=== PATIENT | female | born 1980 | race African-American/Black ===

== ENCOUNTER 2021-12-18 11:22 | Emergency (ER) | payer OTHER, SELFPAY ==
[2021-12-18 11:30] VITALS: BP 135/84; PULSE 68; RESP 16; TEMP 36.6; O2SAT 100
--- NOTE | 2021-12-18 11:34 | ED.FEMALEGU ---
HPI - Female Genitourinary General Chief complaint: Urogenital-Female Stated complaint: injury Time Seen by Provider: 12/18/21 12:04 Source: patient and RN notes reviewed Mode of arrival: ambulatory Limitations: no limitations History of Present Illness HPI Narrative: 41-year-old female presents concern for urinary frequency, bladder pressure and pulling. Reports symptoms for 2 days. Reports mild nausea. Denies abdominal pain or vomiting. Reports headache. Denies back pain, fever, bodies, chills, sweats. Denies any [id number] intervention MD elicited complaint: UTI Related Data Allergies Allergy/AdvReac Type Severity Reaction Status Date / Time No Known Allergies Allergy Verified 12/18/21 11:46 Review of Systems Review of Systems: CONSTITUTIONAL: Denies malaise, chills, sweats, or fever. CARDIOVASCULAR: Denies chest pain, palpitations, or edema. RESPIRATORY: Denies cough or dyspnea. GASTROINTESTINAL: Denies abdominal pain, nausea, vomiting, diarrhea GENITOURINARY: Denies dysuria,urgency. Reports urine frequency, pulling, suprapubic pressure. Denies flank pain or hematuria. SKIN: Denies rash or itching. MUSCULOSKELETAL: Denies back pain or myalgia. All systems reviewed & are unremarkable except as noted in HPI and below PMFSH Comments At time of signature, agree with nursing past medical, surgical, social and family history. There is no relevant family history pertinent to the presenting complaint Exam Narrative: GENERAL: Well-appearing, well-nourished, and in no acute distress. HEAD: Normocephalic. EYES: PERRLA, conjunctivae clear. NECK: Supple. No lymphadenopathy CHEST: Clear to auscultation. No respiratory distress. HEART: Regular rate and rhythm. ABDOMEN: Soft, nontender upon palpation, nondistended, normal active bowel sounds, no palpable or pulsatile masses, no guarding. No CVA tenderness SKIN: Warm, dry, no rash. NEURO: Alert and oriented x3. PSYCH: Normal mood and affect Course Course Emergency Course: Patient is aware of diagnosis, understands and agrees to treatment plan. Anticipatory guidance given. Patient agrees to follow-up as directed and is aware of reasons to seek care at the emergency department. Portions of this record may have been created with voice recognition software Level of Care: Express Care Visit Vital Signs Vital signs: Reviewed. MDM - Female Genitourinary MDM Narrative Medical decision making narrative: Exam findings and UA show no acute concerns or changes; patient is non-toxic appearing and is in no distress. Patient is appropriate for outpatient treatment and follow-up. Differential Diagnosis Differential diagnosis: Likely urinary tract infection and cystitis Critical Care Time Critical Care Time Critical Care Time: No Discharge Plan Discharge Clinical Impression: Urinary tract infection Qualifiers: Urinary tract infection type: site unspecified Hematuria presence: with hematuria Qualified Code(s): N39.0 - Urinary tract infection, site not specified Patient Disposition: Home, Self-Care Condition: Stable Instructions: Antibiotic Form, Urinary Tract Infection in Women (ED) Additional Instructions: We will send a urine culture to the lab; if the culture identifies an organism that the prescribed antibiotic will not treat, you will receive a phone call from an urgent care staff member and an appropriate antibiotic will be prescribed. -Your symptoms should begin to improve within a day of starting antibiotics. But you should finish all the antibiotic pills you get. Otherwise your infection might come back. -Also recommend: increase water intake. Tylenol/ibuprofen as needed for pain or fever -Follow-up with your primary care provider for urine recheck or seek ER visit if condition worsens with high fever, nausea, vomiting and severe back pain. Prescriptions: New sulfamethoxazole-trimethoprim 800-160 mg tablet 1 tablet PO Q12H 7 Days Qty: 14
== END 2021-12-18 12:14 | disposition home or self-care (01) ==
PROVIDERS: Emergency Provider Nurse Practitioner
DX: N39.0 Urinary tract infection, site not specified (principal)
CPT/HCPCS: 81003; 87077; 87086; 87186; 99213; G0463

== ENCOUNTER 2022-02-08 09:42 | Emergency (ER) | payer OTHER, SELFPAY ==
--- NOTE | ~2022-02-08 | XR_ITS ---
XR knee RT min 4V DATE: 02/08/2022 10:20 INDICATION: Right knee pain. No injury. TECHNIQUE: 4 views including crosstable lateral COMPARISON: None FINDINGS: There is mild particular spurring narrowing at all 3 compartments and minimal loss of heigh t at the medial compartment joint space. No fracture or dislocation or joint effusion, radiopaque intra-articular loose body or chondrocalcino sis. No periosteal reaction or bone destruction. IMPRESSION: Mild tricompartment osteoarthritis Reviewed, dictated and finalized at location A.
[2022-02-08 09:50] VITALS: BP 137/61; PULSE 61; RESP 16; TEMP 36.7; O2SAT 100
--- NOTE | 2022-02-08 10:28 | ED.EXTPRO ---
HPI - Extremity Problem General Chief complaint: Extremity Problem,Nontraumatic Stated complaint: right knee Time Seen by Provider: 02/08/22 10:08 Source: patient Mode of arrival: ambulatory Limitations: no limitations History of Present Illness HPI Narrative: This is a 41-year-old female that presents to the emergency department for right knee pain. Ongoing over the last couple of days. No recent injury or trauma. Pain is worse with weightbearing and relieved with rest. She has been taking Tylenol with little relief. Denies fever, erythema, edema, decreased range of motion or numbness. Related Data Allergies Allergy/AdvReac Type Severity Reaction Status Date / Time No Known Allergies Allergy Verified 12/18/21 11:46 Review of Systems Review of Systems: CONSTITUTIONAL: Denies fever MUSCULOSKELETAL: Reports joint pain, and myalgia. NEUROLOGIC: Denies numbness All systems reviewed & are unremarkable except as noted in HPI and below PMFSH Past Medical History Medical History (Updated 02/08/22 @ 11:56 by Glenys Rashid PA-C) No active medical problems Social History Social History (Updated 02/08/22 @ 10:30 by Glenys Rashid PA-C) Smoking status: Current every day smoker Exam Narrative: GENERAL: Well-appearing, well-nourished, and in no acute distress. HEAD: Normocephalic, atraumatic. EYES: EOMI. EXTREMITIES: Normal range of motion. No edema, erythema or warmth. Normal DP pulse. Normal sensation SKIN: Warm, dry, no rash. NEURO: No focal deficits. Alert and oriented x3. PSYCH: Normal mood and affect Course Vital Signs Vital signs: Vital Signs Temperature 98.0 F 02/08/22 09:50 Pulse Rate 61 02/08/22 09:50 Respiratory Rate 16 02/08/22 09:50 Blood Pressure 137/61 02/08/22 09:50 Pulse Oximetry 100 02/08/22 09:50 Oxygen Delivery Room Air 02/08/22 09:50 Temperature 98.0 F 02/08/22 09:50 Pulse Rate 61 02/08/22 09:50 Respiratory Rate 16 02/08/22 09:50 Blood Pressure 137/61 02/08/22 09:50 Pulse Oximetry 100 02/08/22 09:50 Oxygen Delivery Room Air 02/08/22 09:50 MDM - Extremity (Nontraumatic) MDM Narrative Medical decision making narrative: Patient presents to the emergency department for right knee pain ongoing over the last couple of days. No recent injury or trauma. She is neurovascularly intact. Right knee x-ray shows mild tricompartmental osteoarthritis. Patient placed in an Yannick wrap and given crutches for comfort. Instructed to rest, ice and take [id number] pain medication as needed. She is to follow-up with primary care doctor. She was given warnings to return to the ER Imaging Data Radiologist's impression: ITS Impressions Knee X-Ray 02/08/22 10:31 IMPRESSION: Mild tricompartment osteoarthritis Critical Care Time Critical Care Time Critical Care Time: No Discharge Plan Discharge Clinical Impression: Acute pain of right knee Patient Disposition: Home, Self-Care Condition: Stable Instructions: Knee Pain (ED) Additional Instructions: Return to the emergency department if you experience fever, redness and swelling of your leg, numbness, or any other symptoms that are concerning to you Wear YANNICK wrap and use crutches. Ice and elevate extremity. Pain medication as needed and directed. Follow up with your doctor for further care. Dr. Middleton is our primary doctor on-call if needed Prescriptions: No Action sulfamethoxazole-trimethoprim 800-160 mg tablet 1 tablet PO Q12H 7 Days Qty: 14 0RF Follow-up/Referrals: James Middleton MD [Physician] - UNKNOWN,DOCTOR [Primary Care Provider] - 3 Days
[2022-02-08] MEDS: KETOROLAC 30 MG/ML VIAL (*BKC) IM (10:32)
[2022-02-08 12:15] VITALS: BP 128/74; PULSE 65; RESP 16; O2SAT 98
== END 2022-02-08 12:16 | disposition home or self-care (01) ==
PROVIDERS: Emergency Provider Emergency Medicine
DX: M25.561 Pain in right knee (principal); M17.11 Unilateral primary osteoarthritis, right knee; F17.200 Nicotine dependence, unspecified, uncomplicated
CPT/HCPCS: 73564; 96372; 99283; J1885

== ENCOUNTER 2022-03-29 11:01 | Emergency (ER) | payer OTHER, SELFPAY ==
[2022-03-29 11:13] VITALS: BP 127/62; PULSE 67; RESP 18; TEMP 36.9; O2SAT 100
--- NOTE | 2022-03-29 11:31 | ED.URI ---
HPI - URI/Sore Throat General Chief Complaint: Upper Respiratory Infection Stated Complaint: Bodyaches,Pain All Over,Fever Time Seen by Provider: 03/29/22 11:15 Source: patient Mode of arrival: ambulatory Limitations: no limitations History of Present Illness HPI Narrative: Amy is a 41-year-old female patient presenting to the clinic today with complaints of body aches, chills, fever. She reports that her symptoms started on . She tested at home for COVID and was positive MD elicited complaint: sore throat and nasal congestion Related Data Allergies Allergy/AdvReac Type Severity Reaction Status Date / Time No Known Allergies Allergy Verified 03/29/22 11:11 Review of Systems Review of Systems: Pertinent positives per HPI. Patient denies any rash, headache, visual changes, dizziness, shortness of breath, chest pain, palpitations, nausea, vomiting, diarrhea, constipation, abdominal pain, or any urinary issues. [facility] Past Medical History Medical History No active medical problems Social History Social History Smoking status: Current every day smoker Comments At the time of my signature, I reviewed and agree with the nursing past medical, surgical, social, and family history. There is no relevant family history pertinent to the patient complaint. Exam Narrative: General: Well-developed, obese, in no apparent distress Head: Normocephalic, atraumatic Eyes: Pupils equally round and reactive to light bilaterally, EOM intact, sclera and conjunctive clear, no discharge, lids normal Ears: TMs intact and clear, ear canals clear, no drainage, grossly hearing normal. Nose: Nares patent, clear and discharge, no inflammation, no sinus tenderness. Mouth: Oral pharynx without lesions or masses, good dentition, MMM. postnasal drip Neck: Supple, trachea midline, no enlargement of anterior or posterior cervical nodes, no thyroid masses or goiter palpable. Cardio: Regular rate and rhythm, s1 and s2 normal, no murmur appreciated. Resp: Clear to auscultation bilaterally, no rhonchi, rales, wheezing or rubs Course Course Emergency Course: Portions of this record may have been created with voice recognition software. Level of Care: Express Care Visit Vital Signs Vital signs: Vital Signs Temperature 36.9 C 03/29/22 11:13 Pulse Rate 67 03/29/22 11:13 Respiratory Rate 18 03/29/22 11:13 Blood Pressure 127/62 03/29/22 11:13 Pulse Oximetry 100 03/29/22 11:13 Oxygen Delivery Room Air 03/29/22 11:13 Temperature 36.9 C 03/29/22 11:13 Pulse Rate 67 03/29/22 11:13 Respiratory Rate 18 03/29/22 11:13 Blood Pressure 127/62 03/29/22 11:13 Pulse Oximetry 100 03/29/22 11:13 Oxygen Delivery Room Air 03/29/22 11:13 Vital signs reviewed MDM - URI/Sore Throat MDM Narrative Medical decision making narrative: at the time of visit patient is resting comfortably on the exam table. COVID testing was positive in the clinic today. I will send the patient a prescription for some antivirals. Supportive measures were discussed with the patient she voiced understanding of discharge instructions and agrees to treatment plan. Differential Diagnosis Differential diagnosis: Likely sinusitis, viral infection, influenza, pharyngitis and other (covid) Discharge Plan Discharge Clinical Impression: COVID-19 Patient Disposition: Home, Self-Care Condition: Stable Instructions: Antibiotic Form, COVID-19 (Coronavirus Disease 2019) (ED), How to Recover from COVID-19 at Home (ED) Additional Instructions: Take prescription medications only as prescribed- Lagevrio Increase fluids and stay well hydrated Tylenol/motrin for pain/fever Flonase and OTC antihistamines as directed Vicks vapor rub to open sinuses Sinus rinses for congestion Cepacol spray, cough drop
== END 2022-03-29 11:38 | disposition home or self-care (01) ==
PROVIDERS: Emergency Provider Nurse Practitioner Family
DX: U07.1 COVID-19 (principal); F17.200 Nicotine dependence, unspecified, uncomplicated
CPT/HCPCS: 99213; G0463

== ENCOUNTER 2022-04-27 17:31 | Emergency (ER) | payer OTHER, SELFPAY | END 2022-04-27 18:20 | disposition left against medical advice (07) | LOC: ANHED 18:04 | DX: Z53.21 Procedure and treatment not carried out due to patient leaving prior to being seen by health care provider (principal) | CPT/HCPCS: 99199 ==

== ENCOUNTER 2022-08-26 17:39 | Emergency (ER) | payer OTHER, SELFPAY ==
[2022-08-26 17:50] VITALS: BP 136/65; PULSE 72; RESP 16; TEMP 37.8; O2SAT 99
--- NOTE | 2022-08-26 18:20 | ED.URI ---
HPI - URI/Sore Throat General Chief Complaint: Upper Respiratory Infection Stated Complaint: Sinus Time Seen by Provider: 08/26/22 18:20 Source: patient Mode of arrival: ambulatory Limitations: no limitations History of Present Illness HPI Narrative: 42-year-old female presents with complaint of runny nose, mild nasal congestion, postnasal drainage and sore throat for 3 days. Afebrile. Patient concerned that she has strep throat. States so much drainage . Is not taking any rtlu-crg-[id number] medications to treat her symptoms. All systems reviewed and negative except as noted above. Related Data Allergies Allergy/AdvReac Type Severity Reaction Status Date / Time No Known Allergies Allergy Verified 08/26/22 17:49 Review of Systems Review of Systems: CONSTITUTIONAL: Denies fever, chills, or sweats. EYES: Denies visual changes, redness, or discharge. ENT: Reports rhinorrhea, congestion, sore throat, postnasal drainage. Denies otalgia. CARDIOVASCULAR: Denies chest pain, palpitations, or edema. RESPIRATORY: Denies cough or dyspnea. GASTROINTESTINAL: Denies abdominal pain, nausea, vomiting, or diarrhea. GENITOURINARY: Denies dysuria or hematuria. SKIN: Denies rash or itching. MUSCULOSKELETAL: Denies back pain, joint pain, or myalgia. NEUROLOGIC: Denies headache, numbness, or weakness. PSYCHIATRIC: Denies anxiety or depression. All other systems reviewed are negative, except as documented in HPI. [facility] Past Medical History Medical History No active medical problems Social History Social History Smoking status: Current every day smoker Comments At time of signature, agree with nursing past medical, surgical, social and family history. There is no relevant family history pertinent to the presenting complaint. Exam Narrative: GENERAL: This is a well-nourished, well-developed patient, in no apparent distress. HEAD: normocephalic, atraumatic. EYES: PERRL. Sclera clear/white. Vision is grossly intact. EARS: External ears normal, auditory canals clear and without drainage, mild fluid bilateral TMs without erythema. NOSE: External nose normal with Clear nasal drainage. THROAT: Mucous membranes moist, Clear postnasal drainage. No erythema, swelling or exudates. NECK: Neck supple, non-tender without lymphadenopathy, masses or thyromegaly. CARDIOVASCULAR: Regular rate and rhythm without murmurs, gallops, or rubs. RESPIRATORY: Clear to auscultation. Breath sounds equal bilaterally. No wheezes, rales, or rhonchi. SKIN: warm, Dry, intact with no suspicious lesions or rash, good texture and turgor. NEURO: awake, alert, and oriented to person, place and time. There were no obvious focal neurologic abnormalities. EXTREMITIES: No joint tenderness, effusion, or edema noted. Course Course Level of Care: Express Care Visit Vital Signs Vital signs: Vital Signs Temperature 37.8 C H 08/26/22 17:50 Pulse Rate 72 08/26/22 17:50 Respiratory Rate 16 08/26/22 17:50 Blood Pressure 136/65 08/26/22 17:50 Pulse Oximetry 99 08/26/22 17:50 Oxygen Delivery Room Air 08/26/22 17:50 Temperature 37.8 C H 08/26/22 17:50 Pulse Rate 72 08/26/22 17:50 Respiratory Rate 16 08/26/22 17:50 Blood Pressure 136/65 08/26/22 17:50 Pulse Oximetry 99 08/26/22 17:50 Oxygen Delivery Room Air 08/26/22 17:50 Reviewed MDM - URI/Sore Throat MDM Narrative Medical decision making narrative: Patient is aware of diagnosis, understands and agrees to treatment plan. Anticipatory guidance given. Patient agrees to follow-up as directed and is aware of reasons to seek care at the emergency department. Portions of this record may have been created with voice recognition software Differential Diagnosis Differential diagnosis: Likely sinusitis Lab Data Labs: Strep Screen
== END 2022-08-26 18:31 | disposition home or self-care (01) ==
PROVIDERS: Emergency Provider Nurse Practitioner Family
DX: J01.90 Acute sinusitis, unspecified (principal); R09.82 Postnasal drip
CPT/HCPCS: 87081; 87880; 99213; G0463

== ENCOUNTER 2022-11-17 17:39 | Emergency (ER) | payer OTHER, SELFPAY ==
[2022-11-17 17:48] VITALS: BP 142/71; PULSE 77; RESP 18; TEMP 36.5; O2SAT 100
[2022-11-17 18:44] LABS: Appearance Urine Cloudy (Clear); Bacteria Urine Rare /hpf; Bilirubin Urine Negative (Negative); Blood Urine Negative (Negative); Color Urine Yellow (Yellow); Glucose Urine UA Negative (Negative); Ketones Urine Trace mg/dL (Negative); Leukocyte Esterase Ur 1+ LEU/UL (Negative); Need Manual Microscopic Reviewed; Nitrate Urine Negative (Negative); Non Pathogenic Casts 0-2; Protein Urine Negative (Negative); Specific Grav Ur 1.032 (1.001-1.035); Squamous Epithelial Cell Urine Occasional /hpf (Few); WBC Urine 21-50 /hpf
[2022-11-17 19:03] LABS: Add Urine Microscopic? YES
--- NOTE | 2022-11-17 19:25 | ED.GENADULT ---
HPI - General Adult General Chief complaint: Wound/Laceration Stated complaint: cyst on private area Time Seen by Provider: 11/17/22 19:23 Source: patient Mode of arrival: ambulatory Limitations: no limitations History of Present Illness HPI narrative: Patient is a 42-year-old female presenting to the emergency department for evaluation of potential cyst or growth on her vagina. Patient reports that she noticed this 2 days ago on the shower. She denies any pain, swelling, redness or discharge. No vaginal bleeding. No vaginal pain. No pain with bowel movement. No dysuria or hematuria. Patient denies fever, chills, flank pain. No abdominal pain or suprapubic pain. Patient denies history of Bartholin gland cyst infections in the past. No history of abscess or skin infections. Patient denies lesions, blisters, vesicles. No lymphadenopathy. Related Data Allergies Allergy/AdvReac Type Severity Reaction Status Date / Time No Known Allergies Allergy Verified 08/26/22 17:49 Review of Systems Review of Systems: CONSTITUTIONAL: Denies fever CARDIOVASCULAR: Denies chest pain RESPIRATORY: Denies cough or dyspnea. GASTROINTESTINAL: Denies abdominal pain SKIN: Denies rash : Denies dysuria, hematuria, vaginal discharge or bleeding MUSCULOSKELETAL: Denies back pain NEUROLOGIC: Denies headache PMFSH Past Medical History Medical History No active medical problems Social History Social History Smoking status: Current every day smoker Exam Narrative: GENERAL: Awake, alert, conversant HEAD: Normocephalic, atraumatic. EYES: PERRLA and EOMI. ENT: Nares clear, no rhinorrhea or epistaxis. Mucous membranes moist. NECK: Supple. CHEST: No respiratory distress, breathing even and non labored HEART: Regular rate, sinus rhythm ABDOMEN:Non distended, non tender : External vagina is normal. No vesicles or lesions. Labia majora is normal. Labia minora normal. There is a small cystic structure of the right lower vagina which is mobile, non tender, non erythematous, no induration. No fluctuance. It is not pedunculated, but appears cystic but not consistent with abscess. No lymphadenopathy on exam. No vesicles. EXTREMITIES: Normal range of motion. No edema. SKIN: Warm, dry, no rash. NEURO:No focal deficits. Alert and oriented x3 Course Vital Signs Vital signs: Vital Signs Temperature 36.5 C 11/17/22 17:48 Pulse Rate 77 11/17/22 17:48 Respiratory Rate 18 11/17/22 17:48 Blood Pressure 142/71 H 11/17/22 17:48 Pulse Oximetry 100 11/17/22 17:48 Oxygen Delivery Room Air 11/17/22 17:48 Temperature 36.5 C 11/17/22 17:48 Pulse Rate 77 11/17/22 17:48 Respiratory Rate 18 11/17/22 17:48 Blood Pressure 142/71 H 11/17/22 17:48 Pulse Oximetry 100 11/17/22 17:48 Oxygen Delivery Room Air 11/17/22 17:48 Medical Decision Making MDM Narrative Medical decision making narrative: Medical decision making narrative: -Presentation: Patient presenting for evaluation of cystic lesion on lower right vagina without tenderness, induration, fluctuance. No evidence of infection. Not consistent with Bartholin gland abscess. Differential includes cystic structure, pedunculated lesion. Patient without evidence of herpes infection or other secondary signs of sexual transmitted infection. -Co-morbidities complicating care: None -Social determinants of health: None -External Chart Review: External EMR record reviewed, I personally reviewed the patient's chart and recent notes -Hx from independent Sources: None -Discussion of Management/Consultants: None, pt will require non emergent OBGYN follow up -Independent interpretation of studies:None Dx tests considered but not ordered: None -Procedures: None, not consistent with abscess or infected bartholin gland cyst at this point
[2022-11-17 19:49] VITALS: BP 140/74; PULSE 74; RESP 18; O2SAT 100
== END 2022-11-17 19:49 | disposition home or self-care (01) ==
PROVIDERS: Emergency Medicine; Emergency Provider Emergency Medicine; PCP Emergency Medicine
DX: N90.7 Vulvar cyst (principal); F17.200 Nicotine dependence, unspecified, uncomplicated
CPT/HCPCS: 81001; 81025; 87086; 99283

== ENCOUNTER 2023-01-15 00:20 | Day surgery (SDC) | payer OTHER, SELFPAY ==
[2023-01-05 12:44] VITALS: BMI 45.3
--- NOTE | 2023-01-05 12:50 | PC.NURSE ---
Report to the Outpatient Waiting Room, entrance under the green pavilion located off [facility], at time _1300_ on date _01/15/23_. Planned Procedure Time: _1500_. Time changes happen often and if your time is changed the preop area will call you the afternoon before. - You and your visitor will be asked to self-screen and do not enter if you have any COVID symptoms. - A mask is optional within the hospital at this time. Patients may have clear liquids (water, carbonated beverages, clear teas, apple juice) until 3 hours prior to surgery with a maximum of 20 ounces. - No food from midnight until time of surgery - Infants may have breast milk until 4 hours before surgery, infant formula 6 hours prior to surgery. - Children will be allowed to drink immediately following surgery. If applicable, please bring a bottle or sippy cup to assist with drinking. Juice, water, soda, and popsicles are readily available. For infants on formula, please bring formula the day of surgery. Pacifiers are allowed. Take the following medications with a SIP of water the morning of surgery: NONE DO NOT STOP ANY OF YOUR OTHER PRESCRIPTION MEDICATIONS PRIOR TO SURGERY ?EXCEPT THE FOLLOWING Medications to discontinue per physician NONE Date to take last dose Please no make-up, nail czech, hairspray, perfume, deodorant, or body powder the day of surgery. No jewelry (including any body piercings) or valuables the day of surgery, leave them at home. Please take a shower or bath the night before, or the morning of, surgery with an antibacterial soap. Wear comfortable, loose fitting clothing. Children are encouraged to wear pajamas. - Jewelry must be removed prior to entering the operating room. Rings and piercings that are not removed may be cut off. - The hospital will not accept responsibility for valuables. - Please leave all valuables, including medications, at home the day of surgery. If you are going home after surgery, a licensed long haul truck driver must drive you home. - NO public transportation without another adult if you receive anesthesia. - We recommend that an adult stay with you for 24 hours following discharge. - We also recommend that you do not drive, make important decision, drink alcoholic beverages, or take any drugs that were not prescribed by your health care provider for at least 24 hours after your discharge time. For Pediatric surgeries, we recommend two adults accompany the child home. Follow any additional instructions given to you from your surgeon. If you or anyone in your household have experienced Covid symptoms in the past week, please notify your surgeon or the nurse liaison at the phone number below for possible testing. Telephone instructions given to PATIENT__and asked if any additional questions and then verbalized understanding. Patient advised to call surgeon office or pre surgery nurse liaison [phone] if any additional questions.
--- NOTE | 2023-01-13 12:02 | PM.IMHP ---
H&P: HPI History of Present Illness Date/Time: 01/13/23 12:02 Chief Complaint: Vaginal cyst Narrative: This is a 42-year-old female with a large vaginal cyst. It has caused her discomfort from intercourse standpoint and she would like to have it removed. It does not appear infected. Risks and benefits reviewed in [facility] Past Medical History Medical History No active medical problems Social History Social History Smoking packs per day: 0.5 Smoking cigarettes per day: 10.0 Years smoked: 24 Smoking pack-years: 12.00 Smoking status: Current every day smoker Tobacco type: cigarettes Alcohol intake: current Alcohol use details: 1 PER MONTH Substance use: never Living arrangements: with family Meds Home Medications and Allergies Home Medications Medication Instructions Recorded Confirmed Type No Home Medications 01/05/23 01/05/23 History Allergies Allergy/AdvReac Type Severity Reaction Status Date / Time No Known Allergies Allergy Verified 01/05/23 12:43 Exam Const: General: cooperative, healthy appearing and comfortable Nutritional Appearance: average body habitus Orientation/consciousness: oriented to person, oriented to place and oriented to time HENMT: Head: normal to inspection Resp: Effort & Inspection: normal respiratory effort Cardio: Rate: regular rate Rhythm: regular rhythm Heart sounds: S1 normal heart sound present and S2 normal heart sound present GI: Inspection: normal to inspection : External Female Exam: normal external appearance Speculum Exam - Vagina: normal appearance of the vagina (Moderate to large-sized the vaginal cyst noted) Speculum Exam - Cervix: normal appearance of the cervix Bimanual exam- vagina & uterus: non-tender Bimanual Exam- Adnexa, other: normal adnexae Assessment and Plan Assessment and plan (1) Vaginal cyst: Code(s): N89.8 - Other specified noninflammatory disorders of vagina Status: Acute Plan Excision of vaginal cyst
[2023-01-15] VITALS (9 sets, daily range): BP systolic 112–134; BP diastolic 59–98; PULSE 60–74; RESP 12–18; TEMP 36.3–36.7; O2SAT 99–100
--- NOTE | 2023-01-15 06:27 | WPDHPUPDATE1 ---
History and Physical Update Update Date/Time: 01/15/23 06:27 History and Physical has been reviewed, including an updated exam of the patient. There are NO changes in the patient's condition. Risks, benefits, and alternatives have been discussed and questions answered. Patient agrees to proceed with procedure.
[2023-01-15] MEDS: LACTATED RINGERS 1,000 ML 30 ML IV CONT (08:00)
[2023-01-15] MEDS: ACETAMINOPHEN 500 MG TABLET 1000 MG PO (08:00)
--- NOTE | 2023-01-15 08:23 | P.PNAN_ITS ---
Anes - Initial Pre Proc Eval Procedure: Operation Date: 01/15/23 09:30 Proposed Procedures p Excision of Vaginal Cyst - Rey Agarwal MD Date/Time: 01/15/23 08:23 Surgeon: Rey Agarwal MD Pre Op Diagnosis: Vag Cyst Patient Data Age: 42 Gender: F Height: 1.63 m Weight: 120 kg Allergies Allergy/AdvReac Type Severity Reaction Status Date / Time No Known Allergies Allergy Verified 01/05/23 12:43 Home Medications Medication Instructions Recorded Confirmed Type hydrocodone 5 mg-acetaminophen 325 1 tablet PO Q4H PRN pain #14 tabs 01/15/23 Rx mg tablet Patient hx anesthesia problems: none Family hx anesthesia problems: none Results Review: All pre-operative results and documents have been reviewed as part of the pre- operative evaluation. PENDING SALE TO [facility] Past Medical History Medical History No active medical problems Social History Social History Smoking packs per day: 0.5 Smoking cigarettes per day: 10.0 Years smoked: 24 Smoking pack-years: 12.00 Smoking status: Current every day smoker Tobacco type: cigarettes Alcohol intake: current Alcohol use details: 1 PER MONTH Substance use: never Living arrangements: with family Anes - Eval Final PreProcedure Day of Procedure 01/15/23 08:23 Patient weight: morbidly obese Heart: regular rate and rhythm Lungs: decreased breath sounds Airway: Mallampati scale class II Neurological: alert and oriented Last oral intake: >/= 8 hours ASA classification: III Emergent: no Anesthetic plan: proceed Anesthesia type and monitoring: general ETT and standard monitoring Results Review: All pre-operative results and documents have been reviewed as part of the pre- operative evaluation. Informed Consent: The patient's anesthetic plan and its attendant risks and benefits were di scussed with the patient/family/POA. Questions were solicited and answers provided to the satisfaction of the patient/family/POA.
--- NOTE | 2023-01-15 09:39 | W.PM.PROC2 ---
Procedure Note - Detailed Date of Procedure 01/15/23 Pre-op Diagnosis Vag Cyst Post-op Diagnosis Same Procedure Performed Excision of vaginal cyst Surgeon Rey Agarwal MD Anesthesia General Indications This 42-year-old female with inflamed vaginal cyst Findings Inflamed vaginal cyst Description of Procedure Patient is prepped draped in the normal sterile fashion placed in dorsal lithotomy position. Under excellent general anesthesia the labia were in the large vaginal cyst was seen. This was grasped with a clamp and a circumferential incision made the was removed in total. This was then closed with continuous running 2-0 Vicryl. Blood loss estimated 1cc. All sponge, needle, instrument counts were correct. There were no immediate complications Estimated Blood Loss 1 Drains No Packing No Pathology Yes Complications No immediate complications Condition Stable Disposition PACU
== END 2023-01-15 11:04 | disposition home or self-care (01) ==
PROVIDERS: PCP Emergency Medicine; Visit Provider Obstetrics & Gynecology
PROC: (CPT 11422; principal; 2023-01-15 09:30)
DX: N89.8 Other specified noninflammatory disorders of vagina (principal); F17.210 Nicotine dependence, cigarettes, uncomplicated; E66.01 Morbid (severe) obesity due to excess calories; Z68.42 Body mass index [BMI] 45.0-49.9, adult
CPT/HCPCS: 11422; 88305; A9270; J1100; J2250; J2405; J2704; J3010; J7120

== ENCOUNTER 2023-09-30 19:53 | Emergency (ER) | payer OTHER, SELFPAY ==
[2023-09-30 20:04] VITALS: BP 145/72; PULSE 67; RESP 16; TEMP 36.8; O2SAT 100
--- NOTE | 2023-09-30 20:09 | ED.URI ---
HPI - URI/Sore Throat General Chief Complaint: Upper Respiratory Infection Stated Complaint: Sore Throat Time Seen by Provider: 09/30/23 20:12 Source: patient, RN notes reviewed and old records reviewed Mode of arrival: ambulatory Limitations: no limitations History of Present Illness HPI Narrative: 43 year old female who presents to [facility] care with complaints of sore throat and right ear pain with feeling feverish and some cold sweats since yesterday evening. Patient reports that her son was diagnosed with strep throat 2 days ago. Patient states that she does have some sinus drainage, denies any headache or any body aches. She reports that she has not taken any OTC medication for her symptoms. MD elicited complaint: sore throat, rhinorrhea and other (right ear pain) Onset (ago): day(s) (since last evening) Consistency: constant Severity: moderate Treatments prior to arrival: none Related Data Allergies Allergy/AdvReac Type Severity Reaction Status Date / Time No Known Allergies Allergy Verified 09/30/23 19:56 Review of Systems Review of Systems: CONSTITUTIONAL: Reports malaise, chills, sweats, unknown if fever but has felt feverish . EYES: Denies visual changes, redness, or discharge. ENT: Reports rhinorrhea, congestion, no sinus pain, right otalgia and sore throat. CARDIOVASCULAR: Denies chest pain, palpitations, or edema. RESPIRATORY: Reports no cough.? Denies dyspnea. GASTROINTESTINAL: Denies abdominal pain, nausea, vomiting, diarrhea SKIN: Denies rash or itching. MUSCULOSKELETAL: Denies myalgia. NEUROLOGIC: Denies headache. All systems reviewed & are unremarkable except as noted in HPI and below PMFSH Past Medical History Medical History (Updated 10/01/23 @ 15:01 by Guera Washington NP) Arthritis of both knees Vaginal cyst surgical excision Social History Social History Smoking packs per day: 0.5 Smoking cigarettes per day: 10.0 Years smoked: 24 Smoking pack-years: 12.00 Smoking status: Current every day smoker Tobacco type: cigarettes Alcohol intake: current Alcohol use details: 1 PER MONTH Substance use: never Living arrangements: with family Comments At time of signature, agree with nursing past medical, surgical, social and family history. There is no relevant family history pertinent to the presenting complaint Exam Narrative: GENERAL: Well-appearing, well-nourished, and in no acute distress. HEAD: Normocephalic EYES: PERRLA, conjunctivae clear ENT: Nares clear, turbinates edematous and erythematous, clear discharge. Mucous membranes moist.Right ear canal red and excoriated. TM pearly singer with dull light reflex bilaterally; no tragal tenderness. Oropharynx erythematous without lesions. Tonsils enlarged and without exudate, no drooling, no hoarseness, no trismus, uvula midline. NECK: Supple. lymphadenopathy CHEST: Clear to auscultation, breath sounds equal. No wheezing, rhonchi, rales, or stridor. No respiratory distress, speaks in full sentences.no cough noted,SAO2 100% on room air HEART: Regular rate and rhythm. No murmur heard. SKIN: Warm, dry, no rash. NEURO: Alert and oriented x3. PSYCH: Normal mood and affect Course Course Emergency Course: Patient is aware of diagnosis, understands and agrees to treatment plan.? Anticipatory guidance given.? Patient agrees to follow-up as directed and is aware of reasons to seek care at the emergency department. Portions of this record may have been created with voice recognition software Level of Care: Express Care Visit Vital Signs Vital signs: Vital Signs Temperature 36.8 C 09/30/23 20:04 Pulse Rate 67 09/30/23 20:04 Respiratory Rate 16 09/30/23 20:04 Blood Pressure 145/72 H 09/30/23 20:04 Pulse Oximetry 100 09/30/23 20:04 Oxygen Delivery Room Air 09/30/23 20:04 Temperature 36.8 C 09/30/23 20:04
== END 2023-09-30 20:36 | disposition home or self-care (01) ==
PROVIDERS: Emergency Provider Registered Nurse; PCP Emergency Medicine
DX: J02.0 Streptococcal pharyngitis (principal); H60.91 Unspecified otitis externa, right ear; F17.210 Nicotine dependence, cigarettes, uncomplicated; M17.0 Bilateral primary osteoarthritis of knee
CPT/HCPCS: 87880; 99213; G0463

== ENCOUNTER 2024-02-10 18:26 | Emergency (ER) | payer OTHER, SELFPAY ==
--- NOTE | 2024-02-10 18:28 | ED.URI ---
HPI - URI/Sore Throat General Chief Complaint: Upper Respiratory Infection Stated Complaint: throat hurts,ears hurt,fever,drainage Time Seen by Provider: 02/10/24 18:28 Source: patient Mode of arrival: ambulatory Limitations: no limitations History of Present Illness HPI Narrative: Gabriela is a 43-year-old female patient presenting to clinic today with complaints of sore throat, headache, right ear pain,, cough, feeling feverish, and nasal congestion/drainage x2 days. She denies any chest pain or shortness of breath. No known sick contacts. MD elicited complaint: fever, cough, sore throat, rhinorrhea, nasal congestion and other (Headache) Related Data Allergies Allergy/AdvReac Type Severity Reaction Status Date / Time No Known Allergies Allergy Verified 02/10/24 18:37 Review of Systems Review of Systems: Pertinent positives per HPI. Patient denies any rash, headache, visual changes, dizziness, shortness of breath, chest pain, palpitations, nausea, vomiting, diarrhea, constipation, abdominal pain, or any urinary issues. [facility] Past Medical History Medical History Arthritis of both knees Vaginal cyst surgical excision Social History Social History Smoking packs per day: 0.5 Smoking cigarettes per day: 10.0 Years smoked: 24 Smoking pack-years: 12.00 Smoking status: Current every day smoker Tobacco type: cigarettes Alcohol intake: current Alcohol use details: 1 PER MONTH Substance use: never Living arrangements: with family Comments At the time of my signature, I reviewed and agree with the nursing past medical, surgical, social, and family history. There is no relevant family history pertinent to the patient complaint. Exam Narrative: General: Well-developed, morbidly obese, in no apparent distress Head: Normocephalic, atraumatic Eyes: Pupils equally round and reactive to light bilaterally, EOM intact, sclera and conjunctive clear, no discharge, lids normal Ears: TMs intact and congested, ear canals clear, no drainage, grossly hearing normal. Nose: Nares patent, clear discharge, no inflammation, no sinus tenderness. Mouth: Oral pharynx mildly red without lesions or masses, good dentition, MMM. Neck: Supple, trachea midline, no enlargement of anterior or posterior cervical nodes, no thyroid masses or goiter palpable. Cardio: Regular rate and rhythm, s1 and s2 normal, no murmur appreciated. Resp: Clear to auscultation bilaterally, no rhonchi, rales, wheezing or rubs Course Course Emergency Course: Portions of this record may have been created with voice recognition software. Level of Care: Express Care Visit Vital Signs Vital signs: Vital Signs Temperature 36.8 C 02/10/24 18:44 Pulse Rate 66 02/10/24 18:44 Respiratory Rate 15 02/10/24 18:44 Blood Pressure 130/72 02/10/24 18:44 Pulse Oximetry 100 02/10/24 18:44 Oxygen Delivery Room Air 02/10/24 18:44 Temperature 36.8 C 02/10/24 18:44 Pulse Rate 66 02/10/24 18:44 Respiratory Rate 15 02/10/24 18:44 Blood Pressure 130/72 02/10/24 18:44 Pulse Oximetry 100 02/10/24 18:44 Oxygen Delivery Room Air 02/10/24 18:44 Vital signs reviewed MDM - URI/Sore Throat MDM Narrative Medical decision making narrative: At the time of visit patient is resting comfortably on the exam table. Patient appears to be nontoxic. Labs: COVID and strep test were performed and were negative in the clinic today. We will send strep for culture Plan: I suspect patient has URI/pharyngitis/viral syndrome. Work note was given. We will send your strep for culture. Supportive measures were discussed with the patient and they voiced understanding discharge instructions and agrees to treatment plan. Return precautions reviewed Differential Diagnosis Differential diagnosis: Likely upper resp
[2024-02-10 18:44] VITALS: BP 130/72; PULSE 66; RESP 15; TEMP 36.8; O2SAT 100
[2024-02-10 19:01] LABS: EDSTREPNEGPOS1 Negative (Negative)
[2024-02-10 19:03] LABS: EDCOVIDSCREEN Negative (Negative)
== END 2024-02-10 19:12 | disposition home or self-care (01) ==
PROVIDERS: Emergency Provider Nurse Practitioner Family; PCP Emergency Medicine
DX: B34.9 Viral infection, unspecified (principal); J06.9 Acute upper respiratory infection, unspecified; J02.9 Acute pharyngitis, unspecified; Z20.822 Contact with and (suspected) exposure to COVID-19; F17.210 Nicotine dependence, cigarettes, uncomplicated; M17.0 Bilateral primary osteoarthritis of knee
CPT/HCPCS: 87081; 87635; 87880; 99213; G0463

== ENCOUNTER 2024-06-22 11:57 | Emergency (ER) | payer OTHER, SELFPAY ==
--- NOTE | ~2024-06-22 | CT_ITS ---
EXAMINATION: CT abdomen pelvis w con DATE: 06/22/2024 13:34 INDICATION: Abdominal pain. TECHNIQUE: Computed tomography (CT) of the abdomen and pelvis was performed with 100 mL Omnipaque 350 intravenous contrast. Automated exposure control and iterative reconstruction technique were employe d. The dose-length product was 1200.99 mGy-cm. COMPARISON: None. FINDINGS: The visualized portions of the lung bases are clear without pneumonia or pleural effusion. The heart size is normal. No pericardial effusion. The liver, gallbladder, spleen, pancreas, adrenal glands, and kidneys are normal. There are no dilated loops of bowel. The appendix is normal. There ar e no pathologically enlarged lymph nodes. There is no free intraperitoneal fluid. There is an umbilic al hernia containing fat. There is mild thoracic and lumbar spondylosis. IMPRESSION: 1. Umbilical hernia containing fat. Reviewed, dictated and finalized at location B. PRESSER
[2024-06-22 12:00] VITALS: BP 147/57; PULSE 73; RESP 18; TEMP 36.7; O2SAT 100
--- NOTE | 2024-06-22 12:14 | ED.GENADULT ---
HPI - General Adult General Chief complaint: Abdominal Pain <Peggy Mir APRN - Last Filed: 06/22/24 13:54> Stated complaint: constipation x 2 months <Peggy Mir APRN - Last Filed: 06/22/24 13:54> Time Seen by Provider: 06/22/24 12:10 <Peggy Mir APRN - Last Filed: 06/22/24 13:54> Focused HPI: Patient is a 43-year-old female who presents to the ER with abdominal pain and constipation. She reports she has not had her menstrual since April 19, but has taken a negative test at home. Patient reports she went to her primary care provider earlier today who advised her to come to the ER for evaluation. Patient reports she has been going approximately 1 week in between bowel movements. She denies any recent fevers, chest pain, shortness of breath, back pain. Patient denies any medical history related to this ER visit. GENERAL: Well-appearing, well-nourished, and in no acute distress. HEAD: Normocephalic, atraumatic. CHEST: Clear to auscultation. ?No respiratory distress. HEART: Regular rate and rhythm.? NEURO: ?Alert and oriented x3. ABDOMEN: + BS, bilateral upper quadrant tenderness with palpation Patient screened in triage and initial orders placed.? ?Additional care and disposition to be based upon?diagnostic testing and treatment. <Peggy Mir APRN - Last Filed: 06/22/24 13:54> History of Present Illness HPI narrative: AGREE WITH THE ABOVE <Carlos Alberto Pena MD - Last Filed: 06/22/24 14:19> Related Data Allergies/adverse reactions: Allergies Allergy/AdvReac Type Severity Reaction Status Date / Time No Known Allergies Allergy Verified 06/22/24 13:48 <Peggy Mir APRN - Last Filed: 06/22/24 13:54> Review of Systems Review of Systems: All systems reviewed & are unremarkable except as noted in HPI and below <Carlos Alberto Pena MD - Last Filed: 06/22/24 14:19> PMFSH Past Medical History Medical History: Medical History Arthritis of both knees Vaginal cyst surgical excision <Peggy Mir APRN - Last Filed: 06/22/24 13:54> Social History Social History: Social History Smoking packs per day: 0.5 Smoking cigarettes per day: 10.0 Years smoked: 24 Smoking pack-years: 12.00 Smoking status: Current every day smoker Tobacco type: cigarettes Alcohol intake: current Alcohol use details: 1 PER MONTH Substance use: never Living arrangements: with family <Peggy Mir APRN - Last Filed: 06/22/24 13:54> Exam Narrative: GENERAL APPEARANCE: WELL-DEVELOPED, WELL-NOURISHED SKIN: NORMAL COLOR HEAD: NORMOCEPHALIC, NONTRAUMATIC EYES: CLEAR CONJUNCTIVA ENT: OROPHARYNX NORMAL, EARS NORMAL, NOSE NORMAL NECK: SUPPLE, NONTENDER CHEST AND RESPIRATORY: AIRWAY PATENT, NO RESPIRATORY DISTRESS, NO ACCESSORY MUSCLE USE HEART: REGULAR RATE/RHYTHM ABDOMEN: SOFT, MILD DIFFUSE TENDERNESS LOWER ABDOMEN BILATERALLY, NO GUARDING OR REBOUND,, NO ORGANOMEGALY, QUIET BOWEL SOUNDS VASCULAR: NORMAL PERIPHERAL PULSES, NORMAL CAPILLARY REFILL. MUSCULOSKELETAL: NORMAL RANGE OF MOTION, NONTENDER BACK NEUROLOGIC: ALERT AND ORIENTED ?3, CLERICAL DENTIST ASSISTANT IS NORMAL TESTED, NO GROSS MOTOR DEFICIT <Carlos Alberto Pena MD - Last Filed: 06/22/24 14:19> Course Vital Signs Vital signs: Vital Signs Temperature 36.7 C 06/22/24 12:00 Pulse Rate 73 06/22/24 12:00 Respiratory Rate 18 06/22/24 12:00 Blood Pressure 147/57 H 06/22/24 12:00 Pulse Oximetry 100 06/22/24 12:00 Oxygen Delivery Room Air 06/22/24 12:00 Temperature 36.7 C 06/22/24 12:00 Pulse Rate 65 06/22/24 13:48 Respiratory Rate 16 06/22/24 13:48 Blood Pressure 119/68 06/22/24 13:48 Pulse Oximetry 99 06/22/24 13:48 Oxygen Delivery Room Air 06/22/24 12:00 <Peggy Mir APRN - Last Filed: 06/22/24 13:54> Vital Signs Temperature 36.7 C 06/22/24 12:00 Pulse Rate 73 06/22/24 12:00 Respiratory Rate 18 06/22/24 12:00 Blood Pressure 147/57 H 06/22/24 12:00 Pulse Oximetry 100 06/22/24 12:00 Oxygen Delivery Room Air 06/22/24 12:00 Temperature 36.7 C 06/22/24 12:00 Pulse Rate 65 06/22/24 13:48 Respiratory Rate 16 06/22/24 13:48 Blood Pressure 119/68 06/22/24 13:48 Pulse Oximetry 99 06/22/24 13:48 Oxygen Delivery Room Air 06/22/24 12:00 <Carlos Alberto Pena MD - Last Filed: 06/22/24 14:19> Medical Decision Making MDM Narrative Medical decision making narrative: PATIENT PRESENTS WITH ABDOMINAL PAIN AND BLOATING, INTERMITTENT FOR THE LAST 2 MONTHS VITAL SIGNS STABLE PHYSICAL EXAMINATION SHOWING MILD DIFFUSE TENDERNESS LOWER ABDOMEN BILATERALLY DIFFERENTIAL DIAGNOSIS INCLUDE URINARY TRACT INFECTION, COLITIS, DIVERTICULITIS, CONSTIPATION BLOOD WORKUP TODAY SHOWED WBC 10.4 OTHERWISE INSIGNIFICANT ABNORMALITY URINALYSIS SHOWS SHOWED EVIDENCE OF INFECTION CT ABDOMEN AND PELVIS WITH IV CONTRAST SHOWED UMBILICAL HERNIA CONTAINING FAT <Carlos Alberto Pean MD - Last Filed: 06/22/24 14:19> Differential Diagnosis Differential Diagnosis: ABOVE <Carlos Alberto Pena MD - Last Filed: 06/22/24 14:19> Vital Signs Vital Signs: Vital Signs Temperature 36.7 C 06/22/24 12:00 Pulse Rate 73 06/22/24 12:00 Respiratory Rate 18 06/22/24 12:00 Blood Pressure 147/57 H 06/22/24 12:00 Pulse Oximetry 100 06/22/24 12:00 Oxygen Delivery Room Air 06/22/24 12:00 Temperature 36.7 C 06/22/24 12:00 Pulse Rate 65 06/22/24 13:48 Respiratory Rate 16 06/22/24 13:48 Blood Pressure 119/68 06/22/24 13:48 Pulse Oximetry 99 06/22/24 13:48 Oxygen Delivery Room Air 06/22/24 12:00 <Peggy Mir APRN - Last Filed: 06/22/24 13:54> Vital Signs Temperature 36.7 C 06/22/24 12:00 Pulse Rate 73 06/22/24 12:00 Respiratory Rate 18 06/22/24 12:00 Blood Pressure 147/57 H 06/22/24 12:00 Pulse Oximetry 100 06/22/24 12:00 Oxygen Delivery Room Air 06/22/24 12:00 Temperature 36.7 C 06/22/24 12:00 Pulse Rate 65 06/22/24 13:48 Respiratory Rate 16 06/22/24 13:48 Blood Pressure 119/68 06/22/24 13:48 Pulse Oximetry 99 06/22/24 13:48 Oxygen Delivery Room Air 06/22/24 12:00 <Carlos Alberto Pena MD - Last Filed: 06/22/24 14:19> Lab Data Result diagrams: 06/22/24 12:50 06/22/24 12:50 <Peggy Mir APRN - Last Filed: 06/22/24 13:54> Labs: Lab Results 06/22/24 06/22/24 Range/Units 12:50 12:54 WBC 10.4 H (4.5-10.0) K/mm3 RBC 4.52 (4.2-5.4) M/mm3 Hgb 12.8 (12.0-15.0) g/dL Hct 39.7 (37.0-47.0) % MCV 87.8 (80-100) fl MCH 28.3 (26-34) pg MCHC 32.2 (32-36) g/dl RDW 14.0 (11.5-14.5) % Plt Count 274 (150-375) k/mm3 MPV 11.5 H (7.4-10.4) fl Immature Gran % (Auto) 0.3 (0-0.5) % Neut % (Auto) 72.8 (45.5-73.1) % Lymph % (Auto) 17.5 L (18.3-44.2) % [place] % (Auto) 7.7 (2.6-8.5) % Eos % (Auto) 1.4 (0-4.4) % Baso % (Auto) 0.3 (0.2-1.2) % Lymph # (Auto) 1.81 (0.9-3.2) K/mm3 [place] # (Auto) 0.8 H (0.1-0.6) K/mm3 Eos # (Auto) 0.2 (0-0.3) K/mm3 Baso # (Auto) 0.0 (0.0-0.1) K/mm3 Abs Immat Gran (auto) 0.03 (0.00-0.031) K/mm3 Absolute Neuts (auto) 7.6 H (1.3-6.7) K/mm3 Absolute Nucleated RBC 0.000 (0.0-0.012) K/mm3 Nucleated RBC % 0.0 (0.0-0.2) % Sodium 137 (137-145) mmol/L Potassium 3.6 (3.4-5.0) mmol/L Chloride 105 (98-107) mmol/L Carbon Dioxide 24 (22-30) mmol/L Anion Gap 8 (4-12) mmol/L BUN 8 (7-17) mg/dL Creatinine 0.74 (0.7-1.0) mg/dL Estim Creat Clear Calc 98 ml/min Estimated GFR > 60 (59 - ) Glucose 73 (65-110) mg/dL Calcium 8.6 (8.4-10.2) mg/dL Total Bilirubin 1.0 (0.2-1.3) mg/dL AST 16 (14-36) U/L ALT 16 (6-35) U/L Alkaline Phosphatase 47 (38-126) U/L Total Protein 6.0 L (6.3-8.2) g/dL Albumin 3.5 (3.5-5.1) g/dL Lipase 128 (23-300) U/L Beta HCG, Quant < 2.39 mIU/ML Urine Color Dark yellow (Yellow) Urine Appearance Cloudy H (Clear) Urine pH 6.0 (5.0-9.0) Ur Specific [place] 1.031 (1.001-1.035) Urine Protein Trace (Negative) mg/dL Urine Glucose (UA) Negative (Negative) mg/dL Urine Ketones 3+ H (Negative) mg/dL Ur Blood (Man) Negative (Negative) Urine Nitrate Negative (Negative) Urine Bilirubin Negative (Negative) Urine Urobilinogen 2.0 H (<2.0) mg/dL Leukocyte Esterase Rfl 1+ H (Negative) RASHAD/UL Urine RBC 0-2 (0-2) /hpf Urine WBC 11-20 H (0-3) /hpf Ur Squamous Epith Cells Occasional (Few) /hpf Urine Bacteria 2+ H /hpf Urine Casts 3-5 POC Urine HCG, Qual Negative (Negative) <Peggy Blancharduble, MIDDLE CARD TENDER - Last Filed: 06/22/24 13:54> Lab Results 06/22/24 06/22/24 Range/Units 12:50 12:54 WBC 10.4 H (4.5-10.0) K/mm3 RBC 4.52 (4.2-5.4) M/mm3 Hgb 12.8 (12.0-15.0) g/dL Hct 39.7 (37.0-47.0) % MCV 87.8 (80-100) fl MCH 28.3 (26-34) pg MCHC 32.2 (32-36) g/dl RDW 14.0 (11.5-14.5) % Plt Count 274 (150-375) k/mm3 MPV 11.5 H (7.4-10.4) fl Immature Gran % (Auto) 0.3 (0-0.5) % Neut % (Auto) 72.8 (45.5-73.1) % Lymph % (Auto) 17.5 L (18.3-44.2) % [place] % (Auto) 7.7 (2.6-8.5) % Eos % (Auto) 1.4 (0-4.4) % Baso % (Auto) 0.3 (0.2-1.2) % Lymph # (Auto) 1.81 (0.9-3.2) K/mm3 [place] # (Auto) 0.8 H (0.1-0.6) K/mm3 Eos # (Auto) 0.2 (0-0.3) K/mm3 Baso # (Auto) 0.0 (0.0-0.1) K/mm3 Abs Immat Gran (auto) 0.03 (0.00-0.031) K/mm3 Absolute Neuts (auto) 7.6 H (1.3-6.7) K/mm3 Absolute Nucleated RBC 0.000 (0.0-0.012) K/mm3 Nucleated RBC % 0.0 (0.0-0.2) % Sodium 137 (137-145) mmol/L Potassium 3.6 (3.4-5.0) mmol/L Chloride 105 (98-107) mmol/L Carbon Dioxide 24 (22-30) mmol/L Anion Gap 8 (4-12) mmol/L BUN 8 (7-17) mg/dL Creatinine 0.74 (0.7-1.0) mg/dL Estim Creat Clear Calc 98 ml/min Estimated GFR > 60 (59 - ) Glucose 73 (65-110) mg/dL Calcium 8.6 (8.4-10.2) mg/dL Total Bilirubin 1.0 (0.2-1.3) mg/dL AST 16 (14-36) U/L ALT 16 (6-35) U/L Alkaline Phosphatase 47 (38-126) U/L Total Protein 6.0 L (6.3-8.2) g/dL Albumin 3.5 (3.5-5.1) g/dL Lipase 128 (23-300) U/L Beta HCG, Quant < 2.39 mIU/ML Urine Color Dark yellow (Yellow) Urine Appearance Cloudy H (Clear) Urine pH 6.0 (5.0-9.0) Ur Specific [place] 1.031 (1.001-1.035) Urine Protein Trace (Negative) mg/dL Urine Glucose (UA) Negative (Negative) mg/dL Urine Ketones 3+ H (Negative) mg/dL Ur Blood (Man) Negative (Negative) Urine Nitrate Negative (Negative) Urine Bilirubin Negative (Negative) Urine Urobilinogen 2.0 H (<2.0) mg/dL Leukocyte Esterase Rfl 1+ H (Negative) RASHAD/UL Urine RBC 0-2 (0-2) /hpf Urine WBC 11-20 H (0-3) /hpf Ur Squamous Epith Cells Occasional (Few) /hpf Urine Bacteria 2+ H /hpf Urine Casts 3-5 POC Urine HCG, Qual Negative (Negative) <Carlos Alberto Pena MD - Last Filed: 06/22/24 14:19> Imaging Data Radiologist's impression: Impressions Abdomen/Pelvis CT 06/22/24 13:34 IMPRESSION: 1. Umbilical hernia containing fat. <Carlos Alberto Pena MD - Last Filed: 06/22/24 14:19> Critical Care Time Critical Care Time Critical Care Time: No <Carlos Alberto Pena MD - Last Filed: 06/22/24 14:19> Discharge Plan Discharge Clinical Impression: Abdominal pain, Hernia, umbilical, Urinary tract infection <Peggy Mir APRN - Last Filed: 06/22/24 13:54> Condition: Stable <Peggy Mir APRN - Last Filed: 06/22/24 13:54> Instructions: Antibiotic Form, Urinary Tract Infection in Women (DC), Abdominal Pain (ED) <Peggy Mir APRN - Last Filed: 06/22/24 13:54> Additional Instructions: RETURN IF SYMPTOMS ARE WORSENING , CALL FOR APPOINTMENT, TAKE TYLENOL NEEDED FOR ACHES AND PAIN, CONTINUE HOME MEDICATIONS. <Peggy Mir APRN - Last Filed: 06/22/24 13:54> Patient Language: Thai <Peggy Mir APRN - Last Filed: 06/22/24 13:54> Prescriptions: New nitrofurantoin monohyd/m-cryst [Macrobid] 100 mg capsule 100 mg PO Q12H 5 Days Qty: 10 0RF Rx Instructions: must administer with a meal/food <Peggy Mir APRN - Last Filed: 06/22/24 13:54> Follow-up/Referrals: Stevie Higuera MD [Physician] - 06/27/24 James Middleton MD [Primary Care Provider] - <Peggy Mir APRN - Last Filed: 06/22/24 13:54> Stand Alone Forms: Work/School Release IP <Peggy Mir APRN - Last Filed: 06/22/24 13:54>
[2024-06-22 12:56] LABS: BEDSIDEPREGUCG Negative (Negative)
[2024-06-22 13:00] LABS: Basophils Percent Auto 0.3 % (0.2-1.2); Eosinophils Absolute Auto 0.2 K/mm3 (0-0.3); Eosinophils Percent Auto 1.4 % (0-4.4); Hematocrit 39.7 % (37.0-47.0); Hemoglobin 12.8 g/dL (12.0-15.0); Immature Granulocyte Absolute 0.03 K/mm3 (0.00-0.031); Immature Granulocyte Percent A 0.3 % (0-0.5); Lymphocytes Absolute Auto 1.81 K/mm3 (0.9-3.2); Lymphocytes Percent Auto 17.5 % (18.3-44.2); Mean Corpuscular HGB Conc 32.2 g/dl (32-36); Mean Corpuscular Hemoglobin 28.3 pg (26-34); Mean Corpuscular Volume 87.8 fl (80-100); Mean Platelet Volume 11.5 fl (7.4-10.4); Monocytes Absolute Auto 0.8 K/mm3 (0.1-0.6); Monocytes Percent Auto 7.7 % (2.6-8.5); Neutrophils Absolute Auto 7.6 K/mm3 (1.3-6.7); Neutrophils Percent Auto 72.8 % (45.5-73.1); Platelet Count Result 274 k/mm3 (150-375); Red Blood Count 4.52 M/mm3 (4.2-5.4); White Blood Count 10.4 K/mm3 (4.5-10.0)
[2024-06-22 13:07] LABS: Add Urine Microscopic? YES; Appearance Urine Cloudy (Clear); Bacteria Urine 2+ /hpf; Bilirubin Urine Negative (Negative); Blood Urine Negative (Negative); Color Urine Dark Yellow (Yellow); Glucose Urine UA Negative (Negative); Ketones Urine 3+ mg/dL (Negative); Leukocyte Esterase Ur 1+ LEU/UL (Negative); Nitrate Urine Negative (Negative); Protein Urine Trace mg/dL (Negative); RBC Urine 0-2 /hpf (0-2); Specific Grav Ur 1.031 (1.001-1.035); Squamous Epithelial Cell Urine Occasional /hpf (Few)
[2024-06-22 13:11] LABS: Alanine Aminotransferase 16 U/L (6-35); Albumin Level 3.5 g/dL (3.5-5.1); Alkaline Phosphatase 47 U/L (38-126); Anion Gap 8 mmol/L (4-12); Aspartate Amino Transferase 16 U/L (14-36); Blood Urea Nitrogen 8 mg/dL (7-17); Calcium 8.6 mg/dL (8.4-10.2); Carbon Dioxide 24 mmol/L (22-30); Chloride 105 mmol/L (98-107); Estimated CRCL calculation 98 ml/min; Estimated Glomerular Filt Rate > 60; Glucose 73 mg/dL (65-110); Lipase 128 U/L (23-300); Potassium 3.6 mmol/L (3.4-5.0); Sodium 137 mmol/L (137-145)
[2024-06-22 13:27] LABS: Beta HCG Quantitative < 2.39 mIU/ML
[2024-06-22 13:48] VITALS: BP 119/68; PULSE 65; RESP 16; O2SAT 99
--- NOTE | 2024-06-22 13:53 | ED.ABDPAIN ---
HPI - Abdominal Pain General Chief Complaint: Abdominal Pain Stated Complaint: constipation x 2 months Time Seen by Provider: 06/22/24 12:10 Related Data Allergies Allergy/AdvReac Type Severity Reaction Status Date / Time No Known Allergies Allergy Verified 06/22/24 13:48 [facility] Past Medical History Medical History Arthritis of both knees Vaginal cyst surgical excision Social History Social History Smoking packs per day: 0.5 Smoking cigarettes per day: 10.0 Years smoked: 24 Smoking pack-years: 12.00 Smoking status: Current every day smoker Tobacco type: cigarettes Alcohol intake: current Alcohol use details: 1 PER MONTH Substance use: never Living arrangements: with family Course Vital Signs Vital signs: Vital Signs Temperature 36.7 C 06/22/24 12:00 Pulse Rate 73 06/22/24 12:00 Respiratory Rate 18 06/22/24 12:00 Blood Pressure 147/57 H 06/22/24 12:00 Pulse Oximetry 100 06/22/24 12:00 Oxygen Delivery Room Air 06/22/24 12:00 Temperature 36.7 C 06/22/24 12:00 Pulse Rate 65 06/22/24 13:48 Respiratory Rate 16 06/22/24 13:48 Blood Pressure 119/68 06/22/24 13:48 Pulse Oximetry 99 06/22/24 13:48 Oxygen Delivery Room Air 06/22/24 12:00 MDM - Abdominal Pain Lab Data 06/22/24 12:50 06/22/24 12:50 Labs: Lab Results 06/22/24 06/22/24 Range/Units 12:50 12:54 WBC 10.4 H (4.5-10.0) K/mm3 RBC 4.52 (4.2-5.4) M/mm3 Hgb 12.8 (12.0-15.0) g/dL Hct 39.7 (37.0-47.0) % MCV 87.8 (80-100) fl MCH 28.3 (26-34) pg MCHC 32.2 (32-36) g/dl RDW 14.0 (11.5-14.5) % Plt Count 274 (150-375) k/mm3 MPV 11.5 H (7.4-10.4) fl Immature Gran % (Auto) 0.3 (0-0.5) % Neut % (Auto) 72.8 (45.5-73.1) % Lymph % (Auto) 17.5 L (18.3-44.2) % [place] % (Auto) 7.7 (2.6-8.5) % Eos % (Auto) 1.4 (0-4.4) % Baso % (Auto) 0.3 (0.2-1.2) % Lymph # (Auto) 1.81 (0.9-3.2) K/mm3 [place] # (Auto) 0.8 H (0.1-0.6) K/mm3 Eos # (Auto) 0.2 (0-0.3) K/mm3 Baso # (Auto) 0.0 (0.0-0.1) K/mm3 Abs Immat Gran (auto) 0.03 (0.00-0.031) K/mm3 Absolute Neuts (auto) 7.6 H (1.3-6.7) K/mm3 Absolute Nucleated RBC 0.000 (0.0-0.012) K/mm3 Nucleated RBC % 0.0 (0.0-0.2) % Sodium 137 (137-145) mmol/L Potassium 3.6 (3.4-5.0) mmol/L Chloride 105 (98-107) mmol/L Carbon Dioxide 24 (22-30) mmol/L Anion Gap 8 (4-12) mmol/L BUN 8 (7-17) mg/dL Creatinine 0.74 (0.7-1.0) mg/dL Estim Creat Clear Calc 98 ml/min Estimated GFR > 60 (59 - ) Glucose 73 (65-110) mg/dL Calcium 8.6 (8.4-10.2) mg/dL Total Bilirubin 1.0 (0.2-1.3) mg/dL AST 16 (14-36) U/L ALT 16 (6-35) U/L Alkaline Phosphatase 47 (38-126) U/L Total Protein 6.0 L (6.3-8.2) g/dL Albumin 3.5 (3.5-5.1) g/dL Lipase 128 (23-300) U/L Beta HCG, Quant < 2.39 mIU/ML Urine Color Dark yellow (Yellow) Urine Appearance Cloudy H (Clear) Urine pH 6.0 (5.0-9.0) Ur Specific [place] 1.031 (1.001-1.035) Urine Protein Trace (Negative) mg/dL Urine Glucose (UA) Negative (Negative) mg/dL Urine Ketones 3+ H (Negative) mg/dL Ur Blood (Man) Negative (Negative) Urine Nitrate Negative (Negative) Urine Bilirubin Negative (Negative) Urine Urobilinogen 2.0 H (<2.0) mg/dL Leukocyte Esterase Rfl 1+ H (Negative) RASHAD/UL Urine RBC 0-2 (0-2) /hpf Urine WBC 11-20 H (0-3) /hpf Ur Squamous Epith Cells Occasional (Few) /hpf Urine Bacteria 2+ H /hpf Urine Casts 3-5 POC Urine HCG, Qual Negative (Negative) Imaging Data Radiologist's impression: ITS Impressions Abdomen/Pelvis CT 06/22/24 13:34 IMPRESSION: 1. Umbilical hernia containing fat. Discharge Plan Discharge Instructions: Antibiotic Form Patient Language: Tristanian Follow-up/Referrals: James Middleton MD [Primary Care Provider] -
--- OUTSIDE RECORDS SUMMARY | 2024-06-23 04:47 | XMS_ITS | Referral Summary ---
Author Organization [facility] Address [address] [place] [address] Care Team Providers Care Crusher Machine Operator Name Role Phone Faisal Uribe Primary Care Provider [phone] Source Comments [facility],non-owned Affiliates and Associated Physician Practices is amultiple site organization consisting of ambulatory clinics and hospital sitesin [place], [place], [place] and [place]. This disclosure is being madepursuant to the Care Everywhere program and may not contain all information available regarding this patient. Last updated 18.[facility] Allergies No known active allergies Medications * Be aware that medications may not be up to date on this document. Alwaysverify current medications with the patient. Medication Sig Dispensed Refills Start Date End Date Status phentermine (ADIPEX-P) 37.5 MG tablet 3 02/12/2017 Active Active Problems Problem Noted Date Diagnosed Date Footprints Patient 04/12/2014 Overview (04/12/2014): Yumiko Hay RN will be FP personal care home administrator for Gabriela, call [phone] ventriculomegaly 02/01/2014 Overview (02/01/2014): Unilateral right ventriculomegaly 11mm Discussed usual normal outcome, association with Down syndrome, intrauterine infection with CMV Offered NIPT/titres/amnio NIPT and CMV IgM/IgG/avidity sent today Supervision of other high-risk 014 Overview (04/07/2015): Dating: L=10 weeks scan PNL's Blood type O+ Abs neg GCT 98 HepB/HIV/RPR -/-/- Rub IMM Sickle Screen neg Hg/MCV pap HgbE: nml Abnormal Penta-Screen: 1:52 risk for DS cardiac arrhythmia 01/03/2014 Overview (10/22/2014): 02/22/14 Drug levels obtained (trough) 02/12/14 Digoxin .5 (.5-2.0) Sotalol < .3 (1.0-4.0 FHR 180-190's, no hydrops, top normal THA Discussed with Dr. Chambers Inc Digixon .25 BID F/U with Dr. Chambers Wednesday prepared to admit to increase sotalol dosing 02/01/[address] Lora and Dr. Chambers Plan to stop flecainide and try sotalol Need to wait for 3 DOSE interval flecainide minimum Plan to stop flecainide now, admit tomorrow to antepartum with telemetry between 12-2pm Dr. Lora will follow in house On admission needs EKG, electrolytes, Magnesium level, Digoxin level, Flecainide level (per Dr. Lora) Plan to start sotalol Wednesday AM 01/26/14 Digixon level (trough) 01/22/14 .5(.5-2.0) Flecainide level (trough) 01/22/14 .59 (.2-1.0) tachycardia noted on US after referred for abnormal QS. Echo on 01/03/14: Sustained tachycardia with heart rates in the 190s to low 200bpm. There appears to be 1:1 AV conduction based on M-mode evaluation. No evidence of structural heart disease. Normal cardiac function and no evidence of hydrops. Admitted 01/03/2014 for IV digoxin therapy Admitted 03/01 for adjustment of sotalol dosing, on digoxin 0.25 mg BID and sotalol 120 mg BID on admission. Abnormal penta DS risk 1:52 01/02/2014 Overview (02/02/2014): S/p genetics counseling on 01/02 NIPT collected on 02/01 Resolved Problems Problem Noted Date Diagnosed Date Resolved Date abnormality in - SVT 01/17/2014 06/04/2014 Overview (05/10/2014): Images from the original note were not included. LONGTERM PATIENT--PLEASE CALL [phone] IF TRIAGED OR ADMITTED THIS CARE PLAN IS BASED ON EVALUATION, SUBJECT TO CHANGE BASED ON ASSESSMENT. Diagnosis: Persistent SVT despite maternal medication: digoxin (0.25 mg twice a day) and Sotalol (160mg BID) Please see Images or Cardiac under Chart Review for US/ ECHO reports. Planned surveillance: Weekly Echocardiograms with Dr. Chambers (Mondays at on), Weekly testing at [facility] 04/12- normal sinus on last echo. Planned delivery location: IOL scheduled for 05.21.14 at [facility] Planned GA at delivery: 39 weeks Planned mode of delivery: TBD Care Provider: Dr. Cooper ([place], [place]) HALLIE to [facility] with Dr. Julianna Loomis [place] Care Outing consultants involved: MF- Shawn; Cardiology- Reyes; [place]- Jami, Neonatology- Buddy care needed at : Neonatology to attend with later transfer to [facility] for cardiology evaluation Planned care after delivery (per Dr. Chambers and Dr. Goodwin 04.13.14 consults): For management of SVT, Nish will likely need vascular access such as a PIV; ECHO, 12 lead EKG and cardiology evaluation at [facility]. I would recommend the baby be transferred to [facility] after . This rhythm may represent an ectopic atrial tachycardia and may very well be persistent after and may require medications to control. Because of the nature of the arrhythmia, I feel it would be best to do this here at [facility] with Cardiology consultation. Genetics note: genetic diagnostic testing was not performed. Patient did have NIPT which was negative for Down syndrome, trisomy 18, trisomy 13, and Parker syndrome; however, this is not a diagnostic test. Please request Genetics consult postnatally if clinically indicated and/or prior to ordering genetic studies. 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 s notes for management of the * Social History Tobacco Use Types Packs/Day Years Used Date Smoking Tobacco: Former Cigarettes Q uit: 07/18/2013 Smokeless Tobacco: Never Quit: 07/18/2013 Tobacco Cessation:Counseling Given: No Alcohol Use Standard Drinks/Week Comments No 0 (1 standard drink = 0.6 oz pur e alcohol) Sex and Gender Information Value Date Recorded Sex Assigned at Not on file Gender Identity Not on file Sexual Orientation Not on file Last Filed Vital Signs Vital Sign Reading Time Taken Comments Blood Pressure 125/75 03/26/2017 10:07 AM CDT Pulse 78 03/26/2017 10:07 AM CDT Temperature 37.1 ??C (98.7 ??F) 03/26/2017 10:07 AM C DT Respiratory Rate 20 03/26/2017 10:07 AM CDT Oxygen Saturation 98% 03/26/2017 10:07 AM CDT Inhaled Oxygen Concentration - - Weight 105.2 kg (232 lb) 03/26/2017 10:07 AM CDT Height 162.6 cm (5' 4 ) 03/26/2017 10:07 AM CDT Body Mass Index 39.82 03/26/2017 10:07 AM CDT Functional Status Functional Status Response Date of Assess ment Is person deaf or have serious hearing difficult y? No 05/21/2014 Is person blind or have serious difficulty seein g? No 05/21/2014 Does person have serious dif ficulty walking/climbing stairs? No 05/21/2014 Does person have difficulty dressing/bathing? No 05/21/2014 Does person have difficulty doing errands alone? No 05/21/2014 Cognitive Status Response Date of Assessm ent Does person have difficulty concentrating/remembering/making decisions? No 05/21/2014 Plan of Treatment Not on file Advance Directives * Full Code (Latest Code Status on File) Date Activated Date Inactivated Comments 05/21/2014 7:17 AM 05/22/2014 12:14 PM * Full Code Date Activated Date Inactivated Comments 03/01/2014 4:47 PM 03/05/2014 7:38 AM * Full Code Date Activated Date Inactivated Comments 02/02/2014 1:14 PM 02/06/2014 5:10 PM * Full Code Date Activated Date Inactivated Comments 01/15/2014 2:22 PM 01/16/2014 7:13 PM * Full Code Date Activated Date Inactivated Comments 01/03/2014 6:05 PM 01/09/2014 9:32 PM Care Teams Crusher Machine Operator Relationship Specialty Start Date End Date Faisal Uribe PA [address] [place] [address] [phone] PCP - General 03/30/19
--- OUTSIDE RECORDS SUMMARY | 2024-06-23 04:47 | XMS_ITS | Clinical Summary ---
Author Organization [facility] Address [address] [place] [address] Care Team Providers Care Hall Cleaner Name Role Phone Faisal Uribe Primary Care Provider [phone] Source Comments [facility],non-owned Affiliates and Associated Physician Practices is amultiple site organization consisting of ambulatory clinics and hospital sitesin [place], [place], [place] and [place]. This disclosure is being madepursuant to the Care Everywhere program and may not contain all information available regarding this patient. Last updated 18.[facility] Allergies No known active allergies Medications * Be aware that medications may not be up to date on this document. Alwaysverify current medications with the patient. Medication Sig Dispensed Refills Start Date End Date Status phentermine (ADIPEX-P) 37.5 MG tablet 3 02/12/2017 Active Active Problems Problem Noted Date Diagnosed Date Footprints Patient 04/12/2014 Overview (04/12/2014): Yumiko Hay RN will be FP career education teacher for Gabriela, call [phone] ventriculomegaly 02/01/2014 Overview (02/01/2014): Unilateral right ventriculomegaly [...] from the original note were not included. CUSTODIAL PATIENT--PLEASE CALL [phone] IF TRIAGED OR ADMITTED THIS CARE PLAN IS BASED ON EVALUATION, SUBJECT TO CHANGE BASED ON ASSESSMENT. Diagnosis: Persistent SVT despite maternal medication: digoxin (0.25 mg twice a day) and Sotalol (160mg BID) Please see Images or Cardiac under Chart Review for US/ ECHO reports. Planned surveillance: Weekly Echocardiograms with Dr. Chambers (Mondays at on), Weekly testing at [facility] 04/12- normal sinus on last echo. Planned delivery location: IOL scheduled for 05.21.14 at [facility] Planned GA at delivery: 39 weeks Planned mode of delivery: TBD Care Provider: Dr. Cooper ([place], [place]) HALLIE to [facility] with Dr. Julianna Loomis [place] [facility] [place] consultants involved: MF- Shawn; Cardiology- Reyes; Soap Grinder- Jami, Neonatology- Buddy care needed at : Neonatology to attend with later transfer to [facility] for cardiology evaluation Planned care after delivery (per Dr. Chambers and Dr. Goodwin 04.13.14 consults): For management of SVT, Nish will likely need vascular access such as a PIV; ECHO, 12 lead EKG and cardiology evaluation at [facility]. I would recommend the baby be transferred to [facility] after . This rhythm may represent an ectopic atrial tachycardia and may very well be persistent after and may require medications to control. Because of the nature of the arrhythmia, I feel it would be best to do this here at [facility] with Cardiology consultation. Genetics note: genetic diagnostic testing was not performed. Patient did have NIPT which was negative for Down syndrome, trisomy 18, trisomy 13, and Parker syndrome; however, this is not a diagnostic test. Please request Genetics consult postnatally if clinically indicated and/or prior to ordering genetic studies. 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 s notes for management of the * Family History Medical History Relation Name Comments CAD (Coronary Artery Disease) Father Asthma Neg Hx Autoimmune Disease Neg Hx Bipolar Disorder Neg Hx Cancer - Breast Neg Hx Cancer - Colon Neg Hx Cancer - Other Neg Hx Cancer - Ovarian Neg Hx Cancer - Pancreatic Neg Hx Cancer - Prostate Neg Hx Depression Neg Hx Eczema Neg Hx Hypertension Neg Hx Migraine Neg Hx Osteoporosis Neg Hx Seizures Neg Hx Sudd. <30 Neg Hx Thyroid Disease Neg Hx Ulcerative Colitis Neg Hx Relation Name Status Comments Father Mother Alive Social History Tobacco Use Types Packs/Day Years [...] Mass Index 39.82 03/26/2017 10:07 AM CDT Plan of Treatment Health Maintenance Due Date Last Done Comments LIPID TESTING 1979 MAMMOGRAM 1979 PAP SMEAR 1979 HIV SCREENING 1994 HEPATITIS C SCREENING 07/04/1997 DTAP/TDAP/TD VACCINES (1 - Tdap) 1998 HEPATITIS B VACCINE (1 of 3 - 19+ 3-dose series) 1998 COVID-19 VACCINE ( - 2023-2 5 season) 2024 INFLUENZA VACCINE (#1) 2024 DEPRESSION SCREENING 05/31/2024 ZOSTER VACCINE (1 of 2) 2029 HIB VACCINE Aged Out No longer eligi ble based on patient's age to complete this topic HPV VACCINE Aged Out No longer eligi ble based on patient's age to complete this topic MENINGOCOCCAL (Group B) VACCINE Aged Out No longer eligible based on patient's age to complete this topic MENINGOCOCCAL VACCINE Aged Out No lenora jax eligible based on patient's age to complete this topic PNEUMOCOCCAL VACCINE Aged Out No long er eligible based on patient's age to complete this topic Advance Directives * Full Code (Latest Code [...] 6:05 PM 01/09/2014 9:32 PM Care Teams Hall Cleaner Relationship Specialty Start Date End Date Faisal Uribe PA [address] [place] [phone] [facility] - General 03/30/19
--- OUTSIDE RECORDS SUMMARY | 2024-06-23 04:47 | XMS_ITS | Patient Health Summary ---
Author Organization [facility] [employer] Address [address] [place] [address] Care Team Providers Care Delivery Crew Worker Name Role Phone Faisal Uribe Primary Care Provider [phone] Note from [facility],non-owned Affiliates and Associated Physician Practices is amultiple site organization consisting of ambulatory clinics and hospital sitesin [place], [place], [place] and [place]. This disclosure is being madepursuant to the Care Everywhere program and may not contain all information available regarding this patient. Last updated 18.[facility] [employer] Allergies No known active allergies Medications * Be aware that medications may not be up to date on this document. Alwaysverify current medications with the patient. * phentermine (ADIPEX-P) 37.5 MG tablet(Started 02/12/2017) 3 refills left Active Problems Problem Noted Date Diagnosed Date Footprints Patient 04/12/2014 ventriculomegaly 02/01/2014 Supervision of other high-risk 014 cardiac arrhythmia 01/03/2014 Abnormal penta DS risk 1:52 01/02/2014 Resolved Problems Problem Noted Date Diagnosed Date Resolved Date abnormality in - SVT 01/17/2014 06/04/2014 Social History Tobacco Use Types Packs/Day Years [...] Mass Index 39.82 03/26/2017 10:07 AM CDT Procedures * STREP A SCREEN - POINT OF CARE (AMB) STL(Performed 03/26/2017) Performed for Strep throat * CULTURE URINE(Performed 03/02/2017) Performed for Acute cystitis with hematuria * URINALYSIS AUTO - POINT OF CARE (AMB) STL(Performed 03/02/2017) Performed for Acute cystitis with hematuria * IMAGING/RADIOLOGY/XRAY RESULTS ORDER(Performed 08/11/2014) * IMAGING/RADIOLOGY/XRAY RESULTS ORDER(Performed 08/11/2014) * IMAGING/RADIOLOGY/XRAY RESULTS ORDER(Performed 08/11/2014) * IMAGING/RADIOLOGY/XRAY RESULTS ORDER(Performed 08/11/2014) * IMAGING/RADIOLOGY/XRAY RESULTS ORDER(Performed 08/11/2014) * IMAGING/RADIOLOGY/XRAY RESULTS ORDER(Performed 08/11/2014) * IMAGING/RADIOLOGY/XRAY RESULTS ORDER(Performed 08/11/2014) * IMAGING/RADIOLOGY/XRAY RESULTS ORDER(Performed 08/11/2014) * IMAGING/RADIOLOGY/XRAY RESULTS ORDER(Performed 08/11/2014) * IMAGING/RADIOLOGY/XRAY RESULTS ORDER(Performed 08/11/2014) * IMAGING/RADIOLOGY/XRAY RESULTS ORDER(Performed 08/11/2014) * IMAGING/RADIOLOGY/XRAY RESULTS ORDER(Performed 08/11/2014) * IMAGING/RADIOLOGY/XRAY RESULTS ORDER(Performed 05/24/2014) * LAB RESULTS ORDER(Performed 05/24/2014) * CARDIAC RHYTHM STRIP ORDER(Performed 05/24/2014) * CBC W AUTO DIFFERENTIAL(Performed 05/22/2014) * LAB MISC TEST(Performed 05/21/2014) * DIGOXIN LEVEL(Performed 05/21/2014) * BLOOD GASES CORD ART (ISTAT)(Performed 05/21/2014) * PATHOLOGY TISSUE EXAM (STL)(Performed 05/21/2014) * NEURAXIAL BLOCK(Performed 05/21/2014) * TYPE + SCREEN PANEL(Performed 05/21/2014) * COMPREHENSIVE METABOLIC PANEL(Performed 05/21/2014) * CBC W AUTO DIFFERENTIAL(Performed 05/21/2014) * URINALYSIS - POINT OF CARE (AMB) SLU(Performed 05/14/2014) * ECHO CONSULT - (Performed 05/10/2014) Performed for arrhythmia * URINALYSIS - POINT OF CARE (AMB) SLU(Performed 05/07/2014) * LAB RESULTS ORDER(Performed 05/02/2014) * URINALYSIS - POINT OF CARE (AMB) SLU(Performed 04/30/2014) * CULTURE STREP B(Performed 04/23/2014) * URINALYSIS - POINT OF CARE (AMB) SLU(Performed 04/23/2014) * ECHO CONSULT - (Performed 04/12/2014) Performed for Supervision of other high-risk , third trimester * ECHO CONSULT - (Performed 04/02/2014) Performed for abnormality in , not applicable or unspecified fetus (HCC) * GLUCOSE PROTEIN KETONE URINE - POINT OF CAR(Performed 03/29/2014) * BIOPHYSICAL PROFILE WO NST(Performed 03/29/2014) Performed for arrhythmia * EKG 15-LEAD(Performed 03/26/2014) Performed for arrhythmia * ECHO CONSULT - (Performed 03/26/2014) Performed for abnormality in , fetus 1 (HCC) * GLUCOSE PROTEIN KETONE URINE - POINT OF CAR(Performed 03/22/2014) * BIOPHYSICAL PROFILE WO NST(Performed 03/22/2014) Performed for arrhythmia * SONOGRAM - LIMITED(Performed 03/22/2014) Performed for arrhythmia * ECHO CONSULT - (Performed 03/19/2014) Performed for arrhythmia, abnormality in , fetus 1 (HCC), ventriculomegaly * IMAGING/RADIOLOGY/XRAY RESULTS ORDER(Performed 03/15/2014) * GLUCOSE PROTEIN KETONE URINE - POINT OF CAR(Performed 03/15/2014) * SONOGRAM - LIMITED(Performed 03/15/2014) Performed for arrhythmia * EKG 15-LEAD(Performed 03/12/2014) Performed for arrhythmia * ECHO CONSULT - (Performed 03/12/2014) Performed for arrhythmia * SONOGRAM - LIMITED(Performed 03/09/2014) Performed for arrhythmia * SONOGRAM - LIMITED(Performed 03/08/2014) Performed for arrhythmia * GLUCOSE PROTEIN KETONE URINE - POINT OF CAR(Performed 03/08/2014) * GLUCOSE PROTEIN KETONE URINE - POINT OF CAR(Performed 03/08/2014) * IMAGING/RADIOLOGY/XRAY RESULTS ORDER(Performed 03/06/2014) * CARDIAC RHYTHM STRIP ORDER(Performed 03/06/2014) * ECHO CONSULT - (Performed 03/05/2014) Performed for arrhythmia * BASIC METABOLIC PANEL (CALCIUM TOTAL)(Performed 03/05/2014) * DIGOXIN LEVEL(Performed 03/05/2014) * EKG 12-LEAD(Performed 03/04/2014) Performed for arrhythmia, ventriculomegaly * EKG 12-LEAD(Performed 03/04/2014) Performed for arrhythmia, ventriculomegaly * TYPE + SCREEN PANEL(Performed 03/04/2014) * BASIC METABOLIC PANEL (CALCIUM TOTAL)(Performed 03/04/2014) * CBC W AUTO DIFFERENTIAL(Performed 03/04/2014) * DIGOXIN LEVEL(Performed 03/04/2014) * EKG 12-LEAD(Performed 03/03/2014) Performed for arrhythmia, ventriculomegaly * EKG 12-LEAD(Performed 03/03/2014) Performed for arrhythmia * DIGOXIN LEVEL(Performed 03/03/2014) * BASIC METABOLIC PANEL (CALCIUM TOTAL)(Performed 03/03/2014) * EKG 12-LEAD(Performed 03/02/2014) Performed for arrhythmia, ventriculomegaly * EKG 12-LEAD(Performed 03/02/2014) Performed for arrhythmia * DIGOXIN LEVEL(Performed 03/02/2014) * MAGNESIUM BLOOD(Performed 03/01/2014) * BASIC METABOLIC PANEL (CALCIUM TOTAL)(Performed 03/01/2014) * TYPE + SCREEN PANEL(Performed 03/01/2014) * CBC W AUTO DIFFERENTIAL(Performed 03/01/2014) * SONOGRAM - LIMITED(Performed 03/01/2014) Performed for arrhythmia * GLUCOSE PROTEIN KETONE URINE - POINT OF CAR(Performed 03/01/2014) * ECHO CONSULT - (Performed 02/26/2014) Performed for arrhythmia * GLUCOSE CHALLENGE(Performed 02/22/2014) * SONOGRAM - LIMITED(Performed 02/22/2014) Performed for arrhythmia * GLUCOSE PROTEIN KETONE URINE - POINT OF CAR(Performed 02/22/2014) * ECHO CONSULT - (Performed 02/19/2014) Performed for arrhythmia * BIOPHYSICAL PROFILE WO NST(Performed 02/15/2014) Performed for arrhythmia * GLUCOSE PROTEIN KETONE URINE - POINT OF CAR(Performed 02/15/2014) * EKG 15-LEAD(Performed 02/09/2014) Performed for arrhythmia * ECHO CONSULT - (Performed 02/09/2014) Performed for arrhythmia, ventriculomegaly * SONOGRAM - LIMITED(Performed 02/08/2014) * CARDIAC RHYTHM STRIP ORDER(Performed 02/07/2014) * EKG 12-LEAD(Performed 02/06/2014) Performed for Supervision of other high-risk , second trimester, arrhythmia, ventriculomegaly, Abnormal penta DS risk 1:52, abnormality in , fetus 1 (HCC) * EKG 12-LEAD(Performed 02/05/2014) Performed for Supervision of other high-risk , second trimester, arrhythmia, ventriculomegaly * EKG 12-LEAD(Performed 02/05/2014) Performed for ventriculomegaly * PHOSPHORUS BLOOD(Performed 02/05/2014) * MAGNESIUM BLOOD(Performed 02/05/2014) * BASIC METABOLIC PANEL (CALCIUM TOTAL)(Performed 02/05/2014) * TYPE + SCREEN PANEL(Performed 02/05/2014) * CBC W AUTO DIFFERENTIAL(Performed 02/05/2014) * EKG 12-LEAD(Performed 02/04/2014) Performed for arrhythmia, ventriculomegaly * EKG 12-LEAD(Performed 02/04/2014) Performed for ventriculomegaly * EKG 12-LEAD(Performed 02/03/2014) Performed for ventriculomegaly * EKG 12-LEAD(Performed 02/03/2014) Performed for arrhythmia * EKG 12-LEAD(Performed 02/02/2014) Performed for Supervision of other high-risk , second trimester, arrhythmia * TYPE + SCREEN PANEL(Performed 02/02/2014) * FLECAINIDE LEVEL(Performed 02/02/2014) * DIGITOXIN LEVEL(Performed 02/02/2014) * MAGNESIUM BLOOD(Performed 02/02/2014) * PHOSPHORUS BLOOD(Performed 02/02/2014) * BASIC METABOLIC PANEL (CALCIUM TOTAL)(Performed 02/02/2014) * CBC W AUTO DIFFERENTIAL(Performed 02/02/2014) * CYTOMEGALOVIRUS AB IGG AVIDITY(Performed 02/01/2014) Performed for ventriculomegaly * CYTOMEGALOVIRUS ANTIBODY IGG/IGM BLOOD(Performed 02/01/2014) Performed for ventriculomegaly * SONOGRAM - COMPLETE(Performed 02/01/2014) * GLUCOSE PROTEIN KETONE URINE - POINT OF CAR(Performed 02/01/2014) * ECHO CONSULT - (Performed 01/31/2014) Performed for arrhythmia * BIOPHYSICAL PROFILE WO NST(Performed 01/25/2014) Performed for arrhythmia * LAB HISTORICAL RESULTS-ONBASE(Performed 01/25/2014) * SONOGRAM - COMPLETE(Performed 01/22/2014) Performed for abnormality in , fetus 1 (HCC) * EKG 15-LEAD(Performed 01/22/2014) Performed for arrhythmia * ECHO CONSULT - (Performed 01/22/2014) Performed for abnormality in , fetus 1 (HCC) * LAB HISTORICAL RESULTS-ONBASE(Performed 01/22/2014) * LAB HISTORICAL RESULTS-ONBASE(Performed 01/22/2014) * BIOPHYSICAL PROFILE WO NST(Performed 01/19/2014) Performed for arrhythmia * CARDIAC RHYTHM STRIP ORDER(Performed 01/18/2014) * LAB RESULTS ORDER(Performed 01/18/2014) * IMAGING/RADIOLOGY/XRAY RESULTS ORDER(Performed 01/17/2014) * COMPREHENSIVE METABOLIC PANEL(Performed 01/15/2014) * EKG 12-LEAD(Performed 01/15/2014) Performed for arrhythmia * TYPE + SCREEN PANEL(Performed 01/15/2014) * FLECAINIDE LEVEL(Performed 01/15/2014) * DIGOXIN LEVEL(Performed 01/15/2014) * CBC W AUTO DIFFERENTIAL(Performed 01/15/2014) * SONOGRAM - LIMITED(Performed 01/15/2014) * GLUCOSE PROTEIN KETONE URINE - POINT OF CAR(Performed 01/15/2014) * EKG 15-LEAD(Performed 01/11/2014) Performed for arrhythmia * ECHO CONSULT - (Performed 01/11/2014) Performed for arrhythmia * CARDIAC RHYTHM STRIP ORDER(Performed 01/10/2014) * LAB RESULTS ORDER(Performed 01/10/2014) * FLECAINIDE LEVEL(Performed 01/09/2014) * EKG 12-LEAD(Performed 01/09/2014) Performed for arrhythmia * EKG 12-LEAD(Performed 01/08/2014) Performed for arrhythmia * SONOGRAM - COMPLETE(Performed 01/08/2014) * CULTURE URINE(Performed 01/08/2014) * DIGOXIN LEVEL(Performed 01/07/2014) * DIGOXIN LEVEL(Performed 01/07/2014) * DIGOXIN LEVEL(Performed 01/06/2014) * DIGOXIN LEVEL(Performed 01/05/2014) * DIGOXIN LEVEL(Performed 01/05/2014) * ECHOCARDIOGRAM 2D WITH DOPPLER(Performed 01/05/2014) Performed for arrhythmia, Abnormal ECG * SONOGRAM - LIMITED(Performed 01/05/2014) * DIGOXIN LEVEL(Performed 01/05/2014) * DIGOXIN LEVEL(Performed 01/04/2014) * DIGOXIN LEVEL(Performed 01/04/2014) * SONOGRAM - COMPLETE(Performed 01/04/2014) * BASIC METABOLIC PANEL (CALCIUM TOTAL)(Performed 01/04/2014) * EKG 12-LEAD(Performed 01/03/2014) Performed for cardiac anomaly complicating , antepartum, not applicable or unspecified fetus (HCC), arrhythmia * BLOOD TYPE VERIFICATION(Performed 01/03/2014) * URINE MICROSCOPIC ONLY REFLEX TO CULTURE(Performed 01/03/2014) Performed for cardiac anomaly complicating , antepartum, not applicable or unspecified fetus ([facility]) * URINALYSIS REFLEX MICROSCOPIC REFLEX CULTURE(Performed 01/03/2014) Performed for cardiac anomaly complicating , antepartum, not applicable or unspecified fetus ([facility]) * CULTURE URINE(Performed 01/03/2014) Performed for cardiac anomaly complicating , antepartum, not applicable or unspecified fetus ([facility]) * DRUG ABUSE URINE PANEL(Performed 01/03/2014) Performed for cardiac anomaly complicating , antepartum, not applicable or unspecified fetus ([facility]) * TYPE + SCREEN PANEL(Performed 01/03/2014) Performed for cardiac anomaly complicating , antepartum, not applicable or unspecified fetus ([facility]) * T4 FREE(Performed 01/03/2014) Performed for cardiac anomaly complicating , antepartum, not applicable or unspecified fetus ([facility]) * TSH(Performed 01/03/2014) Performed for cardiac anomaly complicating , antepartum, not applicable or unspecified fetus ([facility]) * HEMOGLOBIN ELECTROPHORESIS(Performed 01/03/2014) Performed for cardiac anomaly complicating , antepartum, not applicable or unspecified fetus ([facility]) * SS-B (SJOGREN'S) ANTIBODY(Performed 01/03/2014) Performed for cardiac anomaly complicating , antepartum, not applicable or unspecified fetus ([facility]) * SS-A (SJOGREN'S) ANTIBODY(Performed 01/03/2014) Performed for cardiac anomaly complicating , antepartum, not applicable or unspecified fetus ([facility]) * VARICELLA ZOSTER ANTIBODY IGM(Performed 01/03/2014) Performed for cardiac anomaly complicating , antepartum, not applicable or unspecified fetus ([facility]) * VARICELLA ZOSTER ANTIBODY IGG(Performed 01/03/2014) Performed for cardiac anomaly complicating , antepartum, not applicable or unspecified fetus ([facility]) * RUBELLA ANTIBODY IGG(Performed 01/03/2014) Performed for cardiac anomaly complicating , antepartum, not applicable or unspecified fetus ([facility]) * HERPES SIMPLEX 1+2 ANTIBODY IGG/IGM PANEL(Performed 01/03/2014) Performed for cardiac anomaly complicating , antepartum, not applicable or unspecified fetus ([facility]) * CYTOMEGALOVIRUS ANTIBODY IGG/IGM BLOOD(Performed 01/03/2014) Performed for cardiac anomaly complicating , antepartum, not applicable or unspecified fetus ([facility]) * TOXOPLASMA ANTIBODY IGG/IGM PANEL(Performed 01/03/2014) Performed for cardiac anomaly complicating , antepartum, not applicable or unspecified fetus ([facility]) * PARVOVIRUS B19 IGG/IGM AB PANEL(Performed 01/03/2014) Performed for cardiac anomaly complicating , antepartum, not applicable or unspecified fetus ([facility]) * KLEIHAUER BETKE STAIN(Performed 01/03/2014) Performed for cardiac anomaly complicating , antepartum, not applicable or unspecified fetus ([facility]) * COMPREHENSIVE METABOLIC PANEL(Performed 01/03/2014) Performed for cardiac anomaly complicating , antepartum, not applicable or unspecified fetus ([facility]) * CBC W AUTO DIFFERENTIAL(Performed 01/03/2014) Performed for cardiac anomaly complicating , antepartum, not applicable or unspecified fetus ([facility]) * ECHO CONSULT - (Performed 01/03/2014) Performed for Abnormality in heart rate/rhythm, antepartum condition or complication (HCC) * SONOGRAM - COMPLETE(Performed 01/02/2014) * PROFILE I W/ HBSAG(Performed 05/31/1998) Results * (ABNORMAL) STREP A SCREEN (03/26/2017) Strep A Rapid POCT Positive(A) Negative Strep A Internal Control Present Lot # [id number] Expiration Date [id number] Throat ENTIRE THROAT (SURFACE REGION OF NECK) / Unknown 03/26/2017 Liberty Lopez [employer]USEUM REGISTRAR-MANAGER OF INTERNATIONAL LAB - POINT O F CARE ORDERABLES * (ABNORMAL) CULTURE URINE (03/02/2017 10:16 AM CDT) Only the most recent of3 resultswithin the time period is included. Pathologist [facility] Urine Culture Routine Final report(A) [facility] INSURANCE BILL Result 1 Escherichia coli(A) [facility] INSURANCE BILL Comment:Greater than 100,000 colony forming units per mL Antimicrobial Susceptibility [facility] INSURANCE BILL Comment: ? S = Susceptible; I = Intermediate; R = Resistant ? P = Positive; N = Negative ?MICS are expressed in micrograms per mL ?? Antibiotic ? RSLT#1 ?RSLT#2 ?RSLT#3 ?RSLT#4 Amoxicillin/Clavulanic Acid ?S Ampicillin ? R Cefepime ? S Ceftriaxone ?S Cefuroxime ? S Cephalothin ?I Ciprofloxacin ?S Ertapenem ?S Gentamicin ? S Imipenem ? S Levofloxacin ? S Nitrofurantoin ? S Piperacillin ? R Tetracycline ? S Tobramycin ? S Trimethoprim/Sulfa ? S Urine URINE SPECIMEN OBTAINED BY CLEAN CATCH PROCEDURE / Unknown 03/02/2017 10:16 AM CDT 03/02/2017 Narrative Resulting Agency Comment [facility] [address] ??[facility] [id number] Liberty Lopez MUSEUM REGISTRAR-MANAGER OF INTERNATIONAL LAB - MICROBI OLOGY ORDERABLES [facility] INSURANCE BILL [address] [place] [address] * URINALYSIS AUTO - POINT OF CARE (AMB) STL (03/02/2017) Clarity UA POCT cloudy Color UA POCT yellow Leukocyte UA 125+ Negative Nitrite UA POCT 1+ Negative Urobilinogen UA 0.2 0.1 - 1.0 Protein UA POCT 100+ Negative pH UA 7.5 5.0 - 8.0 pH units Blood UA 2+ Negative Specific Buckner UA POCT 1.010 1.002 - 1.030 Ketone UA neg Negative Bilirubin UA POCT 1+ Negative Glucose UA neg Negative Expiration Date [id number] Lot # [id number] QC Verified Yes Yes URINE / Unknown 03/02/2017 Liberty Lopez MUSEUM REGISTRAR-MANAGER OF INTERNATIONAL LAB - POINT O F CARE ORDERABLES * IMAGING/RADIOLOGY/XRAY RESULTS ORDER (08/11/2014 6:17 AM CDT) Only the most recent of16 resultswithin the time period is included. Anatomical Region Laterality Modality Other Narrative 08/11/2014 6:17 AM CDT Ordered by an unspecified provider. Scanned Document IMAGING * LAB RESULTS ORDER (05/24/2014 5:31 AM PEDIATRIC DENTAL ASSISTANT) Only the most recent of4 resultswithin the time period is included. Narrative 05/24/2014 5:31 AM PEDIATRIC DENTAL ASSISTANT Ordered by an unspecified provider. Scanned Document LAB - THERAPEUTIC DR UG MONITORING ORDERABLES * CARDIAC RHYTHM STRIP ORDER (05/24/2014 5:31 AM PEDIATRIC DENTAL ASSISTANT) Only the most recent of5 resultswithin the time period is included. Narrative 05/24/2014 5:31 AM PEDIATRIC DENTAL ASSISTANT Ordered by an unspecified provider. Scanned Document CARDIAC SERVICES ORD ERABLES * (ABNORMAL) CBC W AUTO DIFFERENTIAL (05/22/2014 4:47 AM PEDIATRIC DENTAL ASSISTANT) Only the most recent of8 resultswithin the time period is included. WBC 13.3(H) 4.4 - 10.7 x10^9/L 05/22/2014 5:52 AM [facility] RBC 3.66(L) 3.80 - 5.20 x10^12/L 05/22/2014 5:52 AM [facility] Hemoglobin 10.6(L) 12.0 - 15.6 gm/dL 05/22/2014 5:52 AM [facility] Hematocrit 30.2(L) 35.9 - 45.5 % 05/22/2014 5:52 AM [facility] MCV 82.5 80.7 - 98.3 fl 05/22/2014 5:52 AM [facility] MCH 29.0 26.7 - 34.0 pg 05/22/2014 5:52 AM [facility] MCHC 35.1 30.8 - 35.9 gm/dL 05/22/2014 5:52 AM [facility] Platelet Count 162 153 - 416 x10^9/L 05/22/2014 5:52 AM [facility] RDW-CV 13.8 12.1 - 14.9 % 05/22/2014 5:52 AM [facility] MPV 12.3 9.4 - 12.9 fl 05/22/2014 5:52 AM [facility] Neutrophils % 75.7(H) 44.0 - 73.0 % 05/22/2014 5:52 AM [facility] Lymphocytes % 12.8(L) 20.0 - 43.0 % 05/22/2014 5:52 AM [facility] Monocytes % 10.7 5.0 - 13.0 % 05/22/2014 5:52 AM [facility] Eosinophils % 0.2 0.0 - 6.0 % 05/22/2014 5:52 AM [facility] Basophils % 0.1 0.0 - 2.0 % 05/22/2014 5:52 AM [facility] Immature Granulocytes 0.5 0 - 1 % 05/22/2014 5:52 AM [facility] Neutrophil Absolute 10.09(H) 2.01 - 7.14 x10^9/L 05/22/2014 5:52 AM [facility] Lymphocytes Absolute 1.71 1.07 - 3.94 x10^9/L 05/22/2014 5:52 AM [facility] Monocytes Absolute 1.43(H) 0.26 - 1.07 x10^9/L 05/22/2014 5:52 AM [facility] Eosinophils Absolute 0.02 0 - 0.47 x10^9/L 05/22/2014 5:52 AM [facility] Basophils Absolute 0.01 0 - 0.08 x10^9/L 05/22/2014 5:52 AM [facility] Immature Granulocytes Absolute 0.06 0.00 - 0.06 x10^9/L 05/22/2014 5:52 AM [facility] Blood BLOOD SPECIMEN / Unknown Lab Venipuncture / Unknown 05/22/2014 4:47 AM PEDIATRIC DENTAL ASSISTANT 05/22/2014 5:13 AM PEDIATRIC DENTAL ASSISTANT Haley Avelar MD LAB - HEMATOLOGY ORD ERABLES [facility] [address] [place] [address] * LAB MISC TEST (05/21/2014 8:59 PM PEDIATRIC DENTAL ASSISTANT) Test Name sotalol level 05/25/2014 9:07 AM PEDIATRIC DENTAL ASSISTANT [facility] Test Result See Scanned Report 05/25/2014 9:07 AM PEDIATRIC DENTAL ASSISTANT [facility] NON INTERF Comment Ref Lab test performed at [facility] 05/25/2014 9:07 AM PEDIATRIC DENTAL ASSISTANT [facility] NON INTERF Blood specimen (specimen) BLOOD SPECIMEN / Unknown Venipuncture / Unknown 05/21/2014 8:59 PM PEDIATRIC DENTAL ASSISTANT 05/21/2014 9:46 PM PEDIATRIC DENTAL ASSISTANT Don Matos MD LAB SEND OUT Performing Organization Address City/[facility]/ZIP Co de Phone Number [facility] NON INTERF [address] [place] [address] [place] [address] * DIGOXIN LEVEL (05/21/2014 8:59 PM PEDIATRIC DENTAL ASSISTANT) Only the most recent of14 resultswithin the time period is included. Digoxin 0.5 0.5 - 2.0 ng/mL 05/21/2014 10:25 PM PEDIATRIC DENTAL ASSISTANT [facility] Comment: Blood BLOOD SPECIMEN / Unknown Venipuncture / Unknown 05/21/2014 8:59 PM PEDIATRIC DENTAL ASSISTANT 05/21/2014 9:45 PM PEDIATRIC DENTAL ASSISTANT Don Matos MD LAB - PRODUCTION SUPERVISOR TRAINEE RY ORDERABLES Performing Organization Address City/[facility]/ZIP Co de Phone Number [facility] [address] [place] [address] * (ABNORMAL) BLOOD GASES CORD LAISHA (ISTAT) (05/21/2014 8:54 PM PEDIATRIC DENTAL ASSISTANT) Blood CORD BLOOD SPECIMEN / Unknown 05/21/2014 8:54 PM PEDIATRIC DENTAL ASSISTANT 05/21/2014 9:00 PM PEDIATRIC DENTAL ASSISTANT Nini Loomis MD LAB - POINT OF CARE ORDERABLES [facility] [address] [place] [address] * (ABNORMAL) BLOOD GASES CORD ART (ISTAT) (05/21/2014 8:50 PM PEDIATRIC DENTAL ASSISTANT) pH Cord Arterial POCT 7.09(L) 7.20 - 7.34 pH 05/21/2014 9:00 PM PEDIATRIC DENTAL ASSISTANT [facility] pCO2 Cord Arterial POCT 72.4(HH) 45 - 55 mmHg 05/21/2014 9:00 PM PEDIATRIC DENTAL ASSISTANT [facility] pO2 Cord Arterial POCT 10(L) 12 - 25 mmHg 05/21/2014 9:00 PM PEDIATRIC DENTAL ASSISTANT [facility] HCO3 Cord Arterial POCT 22.0 15 - 29 mmol/L 05/21/2014 9:00 PM PEDIATRIC DENTAL ASSISTANT [facility] BE Cord Arterial POCT -10(L) -2.9 - 8.3 mmol/L 05/21/2014 9:00 PM PEDIATRIC DENTAL ASSISTANT [facility] TCO2 Cord Arterial POCT 24 mmol/L 05/21/2014 9:00 PM PEDIATRIC DENTAL ASSISTANT [facility] O2 Saturation Cord Art % Calc POCT 6 % 05/21/2014 9:00 PM PEDIATRIC DENTAL ASSISTANT [facility] Site CORD ART 05/21/2014 9:00 PM PEDIATRIC DENTAL ASSISTANT [facility] Sample iSTAT CORD A 05/21/2014 9:00 PM PEDIATRIC DENTAL ASSISTANT [facility] Blood CORD BLOOD SPECIMEN / Unknown 05/21/2014 8:50 PM PEDIATRIC DENTAL ASSISTANT 05/21/2014 9:00 PM PEDIATRIC DENTAL ASSISTANT Nini Loomis MD LAB - POINT OF CARE ORDERABLES Performing Organization Address [facility] Co de Phone Number [facility] [address] [place] [phone] * GROSS + MICRO EXAM (STL) (05/21/2014 8:40 PM PEDIATRIC DENTAL ASSISTANT) Case Report Surgical Pathology Report ? Case: [id number] ? Authorizing Provider: ??Nini Loomis MD ?Collected: ? 05/21/2014 08:40 PM ? Ordering Location: ? [facility] 5 LDR ? Received: ?05/22/2014 08:38 AM ? Pathologist: ? Nancy Taylor MD ? Specimen: ?Placenta 3rd Trimester ? 05/28/2014 3:51 PM [facility] Final Diagnosis 1. Placenta: -- Third trimester placenta, 460 grams -- Three-vessel umbilical cord with no pathologic diagnosis -- Acute chorioamnionitis, mild MM/doni 05/28/2014 3:51 PM [facility] Gross Description Received in formalin in a container labeled Gabriela Alcantara, placenta. ??The container holds a 460 gm, 18 x 15.5 x 3 cm sweeney discoid placenta with attached membranes and umbilical cord. ??The membranes rupture 4.5 cm from the placental disk margin and are rodas semitransparent. ??The umbilical cord inserts eccentrically 7.5 cm from the placental disk margin and measures 9.8 cm in length and up to 1.4 cm in diameter. ??The umbilical cord contains three vessels. ??The surface is purple-rodas. ??The vessels arborize in a normal pattern and are unremarkable. ??The maternal surface has well-developed intact lobular cotyledons. ??Serial sectioning shows red-brown parenchyma. ??There are no lesions or masses grossly identified. ??Credit Card Associate sections are submitted as follows: ?? A1 - Membranes and umbilical cord A2 - and maternal surface A3 - Maternal surface. DYT/rtc 05/28/2014 3:51 PM PEDIATRIC DENTAL ASSISTANT [facility] Microscopic Description Sections of the placenta reveal a three-vessel umbilical cord with no evidence of funisitis or thrombosis. ??The chorioamniotic membranes reveal mild acute inflammation. ??The chorionic villi are small, well-vascularized and mature with no evidence of villitis or infarction. ?? MM/doni 05/28/2014 3:51 PM PEDIATRIC DENTAL ASSISTANT [facility] Pathology/Cytolo gy ENTIRE PLACENTA / Unknown 05/21/2014 8:40 PM PEDIATRIC DENTAL ASSISTANT 05/22/2014 8:38 AM PEDIATRIC DENTAL ASSISTANT Nini Loomis MD LAB - PATHOLOGY/CYT OLOGY ORDERABLES Performing Organization Address City/State/[facility] Co de Phone Number [facility] [address] [phone] * NEURAXIAL BLOCK (05/21/2014 11:42 AM PEDIATRIC DENTAL ASSISTANT) Narrative Nicole Flores APRN-CRNA - 05/21/2014 11:42 AM PEDIATRIC DENTAL ASSISTANT NORRIS Solares ? 05/21/2014 11:42 AM NEURAXIAL BLOCK Patient Location: ??OB Pre Procedure Indication: ??labor analgesia Anticoagulation /Antithrombosis Status Confirmed: Yes Preanesthetic Checklist: ??patient identified, IV checked, site marked, risks and benefits discussed, surgical consent verified, monitors and equipment checked, pre-op evaluation done, timeout performed, informed consent obtained and questions answered / anesthesia plan accepted Monitors: ??BP and Pulse Ox Patient Condition: ??awake Patient Position: ??sitting Procedure Block Performed: ??epidural Prep: ??Betadine Sterile Field: ??mask, cap/hat, sterile field established and sterile gloves Approach: ??midline Skin Numbed with: ??lidocaine 1% Epidural Needle Type: ??Tuohy Needle Gauge: 18 Needle Length: ??3.5 in Placement Site: ??L3-L4 Number of Attempts: ??1 Loss of Resistance: ??10 cm Catheter Length at Skin: ??16 cm CSF Aspirated from Catheter: ??negative Blood Aspirated from Catheter: ??negative Test Dose: ??lidocaine 1.5% with 1 200 k epinephrine ??at 05/21/2014 11:35 AM Test Dose Response: ??negative Local Anesthetic: ??ropivacaine 0.2% Events CSF return negative injection not painful no paresthesia Degree of Difficulty: ??none Position Post Procedure: ??left uterine displacement and head of bed elevated 30 degrees Vital signs monitored and stable throughout. ??See Anesthesia Intraop record for details. Block Start Time: ??05/21/2014 11:35 AM Block End Time: ??05/21/2014 11:35 AM Block Performed by: ??Chelsea Flores APPLIED BEHAVIOR SPECIALIST Notes: ??Called to patients room. Epidural placed without complications. Negative heme, Neg, CSF + GLORY x 1 attempt. ??Pt getting comfortable Nini Loomis MD GENERAL ANESTHESIA ORDERABLES * TYPE + SCREEN PANEL (05/21/2014 7:20 AM [facility]) Only the most recent of7 resultswithin the time period is included. Pathologist [facility] [place] ABO B 05/21/2014 8:24 AM [facility] Rh Type Positive 05/21/2014 8:24 AM [facility] Comment:History check perfor med. No retype required. Antibody Screen Negative 05/21/2014 8:24 AM [facility] Miscellaneous samples (specimen) BLOOD SPECIMEN / Unknown Venipuncture / Unknown 05/21/2014 7:20 AM PEDIATRIC DENTAL ASSISTANT 05/21/2014 7:33 AM [facility] Yaquelin Hendricks MD LAB - BLOOD BANK ORD ERABLES [facility] [address] * (ABNORMAL) COMPREHENSIVE METABOLIC PANEL (05/21/2014 7:20 AM PEDIATRIC DENTAL ASSISTANT) Only the most recent of3 resultswithin the time period is included. Pathologist [facility] [place] Glucose 75 74 - 106 mg/dL 05/21/2014 7:58 AM [facility] Sodium 138 136 - 145 mmol/L 05/21/2014 7:58 AM [facility] Potassium 3.7 3.5 - 5.1 mmol/L 05/21/2014 7:58 AM [facility] Chloride 108(H) 98 - 107 mmol/L 05/21/2014 7:58 AM [facility] CO2 21(L) 22 - 31 mmol/L 05/21/2014 7:58 AM [facility] Calcium 8.9 8.5 - 10.1 mg/dL 05/21/2014 7:58 AM [facility] Anion Gap 9 5 - 15 mmol/L 05/21/2014 7:58 AM [facility] BUN 10 7 - 21 mg/dL 05/21/2014 7:58 AM [facility] Creatinine 0.39(L) 0.50 - 1.30 mg/dL 05/21/2014 7:58 AM [facility] eGFR by MDRD >60 >60 mL/min/1.7 3m2 05/21/2014 7:58 AM [facility] eGFR by MDRD >60 >60 mL/min/1.7 3m2 05/21/2014 7:58 AM [facility] Alkaline Phosphatase 103 38 - 126 U/L 05/21/2014 7:58 AM [facility] ALT 19 12 - 78 U/L 05/21/2014 7:58 AM [facility] AST 15 5 - 40 U/L 05/21/2014 7:58 AM [facility] Protein Total 6.3(L) 6.4 - 8.2 gm/dL 05/21/2014 7:58 AM [facility] Albumin 2.6(L) 3.4 - 5.0 gm/dL 05/21/2014 7:58 AM [facility] Bilirubin Total 0.4 0.2 - 1.0 mg/dL 05/21/2014 7:58 AM [facility] Blood BLOOD SPECIMEN / Unknown Venipuncture / Unknown 05/21/2014 7:20 AM PEDIATRIC DENTAL ASSISTANT 05/21/2014 7:33 AM [facility] Yaquelin Hendricks MD LAB - CHEMISTRY MICHELLE SHEPARD [facility] Organization Address City/State/ZIP Co de Phone Number [facility] [address] [place] [address] * URINALYSIS - POINT OF CARE (AMB) [facility] (05/14/2014) Only the most recent of4 resultswithin the time period is included. Glucose UA neg [facility] Bilirubin UA POCT neg [facility] Ketones UA POCT neg COUNT INCLUDES THE [facility] Specific Buckner UA 1.010 COUNT INCLUDES THE [facility] Blood Urine POCT neg COUNT INCLUDES THE [facility] pH UA 7 [facility] Protein UA neg [facility] Urobilinogen UA neg COUNT INCLUDES THE [facility] Nitrite UA neg [facility] WBC UA neg [facility] Urine specimen (specimen) 05/14/2014 Historical Provider LAB - POINT OF CA RE ORDERABLES COUNT INCLUDES THE [facility] * ECHO CONSULT - (05/10/2014 9:50 AM PEDIATRIC DENTAL ASSISTANT) Only the most recent of14 resultswithin the time period is included. 05/10/2014 9:50 AM PEDIATRIC DENTAL ASSISTANT Narrative [facility] - 05/10/2014 1:25 PM PEDIATRIC DENTAL ASSISTANT [facility] , Echocardiogram 2D, M-mode, Doppler, and Color Doppler Name: GABRIELA ALCANTARA MR #: [id number] Study date: 05/10/2014 Age: 33 years : 1980 Gender: Female Ht: / Wt: / BSA: HR: BP: / age: 37 weeks JOEY: 05/28/2014 Maternal age: 33 years ENVIRONMENTAL ENGINEERING ASSISTANT: ??Susan Chambers MD PEDIATRIC ECHO SENIOR BIOSTATISTICIAN/GROUP LEADER: ??Eloisa Velasquez RDCS History/ Indications: SVT. Procedure: The procedure was performed in the echo lab. Echocardiogram. type: single fetus. The fetus is in vertex presentation. rhythm: The rhythm was normal at today's visit with heart rates in the 120s. There was 1:1 AV conduction. dopplers: Flow in the ductus venosus was normal. The umbilical vein flow pattern was normal. The umbilical artery flow pattern with intermittent absent end diastolic flow. Anatomic relationships: Left sided cardiac apex (levocardia). There was normal visceral-cardiac situs, and normal segmental cardiac anatomical relationship. Systemic veins: There was normal systemic venous return. Right atrium: The atrium was mildly dilated. Left atrium: Size was normal. Tricuspid valve: The valve structure was normal. Doppler: The inflow pattern and transtricuspid velocity were within the normal range. There was no significant regurgitation. Mitral valve: Valve structure was normal. Doppler: The inflow pattern and transmitral velocity were within the normal range. There was no regurgitation. Right ventricle: The cavity size was mildly increased. Wall thickness was normal. Systolic function was normal. Left ventricle: The cavity size was normal. Wall thickness was normal. Systolic function was normal. Ventricular septum: The septum was intact. Pulmonic valve: Leaflets exhibited normal mobility. Doppler: The transpulmonic velocity was within the normal range. There was no regurgitation. Aortic valve: Leaflets exhibited normal mobility. Doppler: Transaortic velocity was within the normal range. There was no regurgitation. Pulmonary artery: The main pulmonary artery was normal. Aorta: There is mild hypoplasia of the aortic isthmus seen in some views. Normal flow in the aortic isthmus, however in some views there appears to be bidirectional shunting noted. Extracardiac shunting: Ductus arteriosus: The antegrade flow velocity and pattern in the ductal arch was normal. Pericardium: There was no pericardial effusion. No evidence of ascites or pleural effusion. 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 On today's study, the rhythm remains normal with heart rates in the 120s. Mild cardiomegaly. Normal biventricular systolic function. No significant valvar regurgitation. No evidence of hydrops. Mild aortic isthmus hypoplasia, may be normal variant for age, but cannot rule out evolving coarctation. Recommendations: Recommend echocardiogram to reevaluate aortic arch. Prepared and signed by Susan Chambers MD Signed 05/10/2014 13:23:44 2D MEASUREMENTS General ?? (Reference) Cardiac area ?? 16 cm?? Thoracic area ?? 44 cm?? Cardiac circumference ?? 144 mm Thoracic circumference ?? 236 mm Cardiac area/thoracic area ?? 0.36 Cardiac circ/thoracic circ ?? 0.61 Legend: Predicted normals (shown in italics) are given as mean ?? 2 SD Asterisk (*) coleman values outside the specified normal range. Procedure Note Unknown, Provider - 05/10/2014 [facility] , Echocardiogram 2D, M-mode, Doppler, and Color Doppler Name: GABRIELA ALCANTARA MR #: [id number] Study date: 05/10/2014 Age: 33 years : 1980 Gender: Female Ht: / Wt: / BSA: HR: BP: / age: 37 weeks JOEY: 05/28/2014 Maternal age: 33 years ENVIRONMENTAL ENGINEERING ASSISTANT: Susan Chambers MD PEDIATRIC ECHO SENIOR BIOSTATISTICIAN/GROUP LEADER: Eloisa Velasquez RDCS History/ Indications: SVT. Procedure: The procedure was performed in the echo lab. Echocardiogram. type: single fetus. The fetus is in vertex presentation. rhythm: The rhythm was normal at today's visit with heart rates in the 120s. There was 1:1 AV conduction. dopplers: Flow in the ductus venosus was normal. The umbilical vein flow pattern was normal. The umbilical artery flow pattern with intermittent absent end diastolic flow. Anatomic relationships: Left sided cardiac apex (levocardia). There was normal visceral-cardiac situs, and normal segmental cardiac anatomical relationship. Systemic veins: There was normal systemic venous return. Right atrium: The atrium was mildly dilated. Left atrium: Size was normal. Tricuspid valve: The valve structure was normal. Doppler: The inflow pattern and transtricuspid velocity were within the normal range. There was no significant regurgitation. Mitral valve: Valve structure was normal. Doppler: The inflow pattern and transmitral velocity were within the normal range. There was no regurgitation. Right ventricle: The cavity size was mildly increased. Wall thickness was normal. Systolic function was normal. Left ventricle: The cavity size was normal. Wall thickness was normal. Systolic function was normal. Ventricular septum: The septum was intact. Pulmonic valve: Leaflets exhibited normal mobility. Doppler: The transpulmonic velocity was within the normal range. There was no regurgitation. Aortic valve: Leaflets exhibited normal mobility. Doppler: Transaortic velocity was within the normal range. There was no regurgitation. Pulmonary artery: The main pulmonary artery was normal. Aorta: There is mild hypoplasia of the aortic isthmus seen in some views. Normal flow in the aortic isthmus, however in some views there appears to be bidirectional shunting noted. Extracardiac shunting: Ductus arteriosus: The antegrade flow velocity and pattern in the ductal arch was normal. Pericardium: There was no pericardial effusion. No evidence of ascites or pleural effusion. 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 On today's study, the rhythm remains normal with heart rates in the 120s. Mild cardiomegaly. Normal biventricular systolic function. No significant valvar regurgitation. No evidence of hydrops. Mild aortic isthmus hypoplasia, may be normal variant for age, but cannot rule out evolving coarctation. Recommendations: Recommend echocardiogram to reevaluate aortic arch. Prepared and signed by Susan Chambers MD Signed 05/10/2014 13:23:44 2D MEASUREMENTS General (Reference) Cardiac area 16 cm?? Thoracic area 44 cm?? Cardiac circumference 144 mm Thoracic circumference 236 mm Cardiac area/thoracic area 0.36 Cardiac circ/thoracic circ 0.61 Legend: Predicted normals (shown in italics) are given as mean ?? 2 SD Asterisk (*) coleman values outside the specified normal range. Héctor Baird MD ECHO ORDERABLES Performing Organization Address City/State/[facility] Co de Phone Number [facility] [address] [place] [address] * (ABNORMAL) CULTURE STREP B (04/23/2014 9:38 AM PEDIATRIC DENTAL ASSISTANT) Culture SEE NOTE(A) [facility] ([facility]) Comment: ??STREPTOCOCCUS, GROUP B CULTURE ?MICRO NUMBER: ?[id number] ??TEST STATUS: ? FINAL ??SPECIMEN SOURCE: ?? NOT GIVEN ??SPECIMEN QUALITY: ??ADEQUATE ??RESULT: ?Group B Streptococcus isolated ? Beta-hemolytic Streptococci are ? predictably susceptible to penicillin ? and other beta-lactams. ? Susceptibility testing not routinely ? performed. Test Performed at: [facility] ??[id number] [place] MD 04/23/2014 9:38 AM PEDIATRIC DENTAL ASSISTANT 04/24/2014 6:52 AM PEDIATRIC DENTAL ASSISTANT Narrative [facility] ([facility]) - 04/26/2014 1:00 PM PEDIATRIC DENTAL ASSISTANT Preferred Lab:->[facility] Jennifer Corcoran MD LAB - MICROBIOLOGY ORDERABLES Performing Organization Address [facility] Co de Phone Number [facility] ([facility]) * GLUCOSE PROTEIN KETONE URINE - POINT OF CAR (03/29/2014 2:12 PM CDT) Only the most recent of10 resultswithin the time period is included. Glucose UA neg Negative [facility] Protein UA neg Negative [facility] Ketone UA neg Negative [facility] QC Verified Yes Yes [facility] POC T TESTING Urine specimen (specimen) URINE / Unknown 03/29/2014 2:12 PM CDT Xiao Topete MUSEUM REGISTRAR-MANAGER OF INTERNATIONAL LAB - POIN T OF CARE ORDERABLES Performing Organization Address [facility] de Phone Number [facility] [address] * BIOPHYSICAL PROFILE WO NST (03/29/2014 11:53 AM CDT) Only the most recent of5 resultswithin the time period is included. Anatomical Region Laterality Modality Other 03/29/2014 11:5 3 AM CDT Narrative 03/29/2014 4:26 PM CDT ? [facility] ?PHONE: ??FAX: Pat. Name: ?GABRIELA ALCANTARA Elaine. No: ?[id number] Study Date: ?? 03/29/2014 ??11:53am , Age: ? 1980, 33 Pregnancies: ?? 3, Para 1, Ab 1 LMP: ?08/21/2013 GA by LMP: ?31w3d GA by 1st: ?31w3d GA by US: ? 32w6d GA Selected: ??31w3d (LMP) JOEY: ?05/28/2014 Referring MD: MD CHANELLE Forge Heater: ??Angi Mcgovern RDMS Hist/Ind: ? SVT MEASUREMENTS & AGE ? GROWTH EVALUATION Measurement ??GA ? Range ? Srce %for GA Ratios ----- ---- ------- BPD ??8.3 cm 33w3d (98b5g-11x1g) Hadl BPD 79% FL/BPD 0.76 (0.71 - 0.87) HC ??29.8 cm 33w0d (10t3i-96z6g) Hadl HC ??74% FL/AC ??0.22 (0.20 - 0.24) AC ??28.9 cm 33w0d (14i6m-34j9r) Hadl AC ??73% HC/AC ??1.03 (0.96 - 1.15) FL ?? 6.3 cm 32w4d (88f7n-50e6v) Hadl FL ??68% CI ? 0.80 (0.70 - 0.86) HL ?? 5.5 cm 32w1d (15e8n-32z3d) Baltazar HL ??62% GA for sonogram 32w6d (68e3x-63i2v) ?? Weight Estimate: based on (HL,BPD,HC,AC,FL) Avg ? Weight: 2072 gm (3539-2871) Hadlo ? : 4lbs, 9oz ? Normal: 1832 gm (1374- 2290) Hadlo ? Wt% ? 75% for 31w3d Heart Rate: 152 bpm Amniotic Fluid Index: 31.1cm (08.7-24.0)* Q1: 7.5cm ??Q2: 10.5cm ??Q3: 4.7cm ??Q4: 8.3cm ?? Biophysical Profile: 01/05 Breathin ?? Tone: 2 ?? Movement: ??2 ?? AFV: ??2 CLINICAL SUMMARY Study Number: ??15 A sweeney fetus is identified in cephalic presentation. ??The measurements today are consistent with appropriate growth compared to previous examination. ?? The amniotic fluid volume is consistent with polyhydramnios. ??The placenta is posterior. ??No major malformations are seen. ?? There is no evidence of hydrops. The heart baseline alternated between 120's and 180's. TESTING The Biophysical profile score is 8/8, NST is technically unsatisfactory due to abrupt shift in baseline every 1-2 minutes however accelerations were noted during tracing in both baselines. IMPRESSION: ?? Single, live, IUP at 31w3d, normal growth, polyhydramnios Alternating FHR baseline of 120 and 180 No evidence of hydrops RECOMMEND: ?? F/U in 3-4 days at [facility] with subsequent f/u at [address] 04/09/14 Thank you for allowing us the opportunity to care for your patient. Nini Loomis MD <Electronic Signature> ??03/29/2014 04:11pm Don Matos MD [facility] ORDERABLE S * EKG 15-LEAD (03/26/2014 1:16 PM CDT) Only the most recent of5 resultswithin the time period is included. Ventricular Rate 61 BPM CG MUSE Atrial Rate 61 BPM CG MUSE P-R Interval 182 ms CG MUSE QRS Duration ms 74 ms CG MUSE Q-T Interval ms 424 ms CG MUSE QTC Calculation (Bezet) 426 ms CG MUSE Calculated P [place] 53 degrees CG MUSE Calculated R [place] 23 degrees CG MUSE Calculated T [place] 20 degrees CG MUSE Interpretation EKG Normal sinus rhythm Normal ECG When compared with ECG of 12-MAR-2014 13:05, No significant change was found Confirmed by MD Reyes, Susan ([id number]) on 04/06/2014 4:34:56 PM CG MUSE 03/26/2014 1:16 PM CDT 04/06/2014 4:34 PM PEDIATRIC DENTAL ASSISTANT Susan Chambers MD ECG ORDERABLES CG MUSE * SONOGRAM - LIMITED (03/22/2014 1:17 PM CDT) Only the most recent of9 resultswithin the time period is included. Anatomical Region Laterality Modality Other 03/22/2014 1:17 PM CDT Narrative 03/22/2014 5:18 PM CDT ? [facility] ? [facility] ?PHONE: ??FAX: Pat. Name: ?GABRIELA ALCANTARA Pat. No: ?[id number] Study Date: ?? 03/22/2014 ??1:17pm , Age: ? 1980, 33 Pregnancies: ?? 3, Para 1, Ab 1 LMP: ?08/21/2013 GA by LMP: ?30w3d GA by 1st: ?30w3d GA Selected: ??30w3d (From First S) JOEY: ?05/28/2014 Referring MD: MD CHANELLE Forge Heater: ??Nga Servin RDMS Hist/Ind: ? SVT Heart Rate: 171 bpm Amniotic Fluid Index: 31.2cm (08.9-23.6)* Q1: 8.8cm ??Q2: 6.9cm ??Q3: 8.8cm ??Q4: 6.8cm ?? CLINICAL SUMMARY Study Number: 14(1of2) A sweeney fetus is identified in cephalic presentation. ??The placenta is anterior. ??The amniotic fluid volume is increased. ??FHR predominantly 170-175. There is no evidence of hydrops. Forward flow noted throughout cardiac cycle in ductus venosus. IMPRESSION: ?? Single, live, IUP at 30w3d, polyhydramnios No additional sonographic evidence of heart failure Baseline FHR less than prior studies RECOMMEND: ?? Follow up ultrasound as clinically indicated. Thank you for allowing us the opportunity to care for your patient. Nini Loomis MD <Electronic Signature> ??03/22/2014 05:18pm Nini Loomis MD [facility] ORDERABLES * (ABNORMAL) BASIC METABOLIC PANEL (CALCIUM TOTAL) (03/05/2014 5:34 AM CDT) Only the most recent of7 resultswithin the time period is included. Glucose 87 74 - 106 mg/dL 03/05/2014 6:11 AM CDT [facility] Sodium 139 136 - 145 mmol/L 03/05/2014 6:11 AM CDT [facility] Potassium 3.5 3.5 - 5.1 mmol/L 03/05/2014 6:11 AM CDT [facility] Chloride 108(H) 98 - 107 mmol/L 03/05/2014 6:11 AM CDT [facility] CO2 24 22 - 31 mmol/L 03/05/2014 6:11 AM CDT [facility] Calcium 8.5 8.5 - 10.1 mg/dL 03/05/2014 6:11 AM CDT [facility] Anion Gap 7 5 - 15 mmol/L 03/05/2014 6:11 AM CDT [facility] BUN 5(L) 7 - 21 mg/dL 03/05/2014 6:11 AM CDT [facility] Creatinine 0.32(L) 0.50 - 1.30 mg/dL 03/05/2014 6:11 AM CDT [facility] eGFR by MDRD >60 >60 mL/min/1.7 3m2 03/05/2014 6:11 AM CDT [facility] eGFR by MDRD >60 >60 mL/min/1.7 3m2 03/05/2014 6:11 AM CDT [facility] Blood BLOOD SPECIMEN / Unknown 03/05/2014 5:34 AM CDT 03/05/2014 5:44 AM CDT Cindy Lord MD LAB - CHEMISTRY O RDERABLES Performing Organization Address [facility] Co de Phone Number [facility] [address] [place] [address] * EKG 12-LEAD (03/04/2014 7:55 PM CDT) Only the most recent of18 resultswithin the time period is included. Ventricular Rate 64 BPM [facility] M[facility] Atrial Rate 64 BPM [facility] P-R Interval 178 ms [facility] QRS Duration ms 82 ms [facility] Q-T Interval ms 420 ms [facility]USE QTC Calculation (Bezet) 433 ms [facility] MUSE Calculated P [place] 50 degrees [facility] MUSE Calculated R [place] 21 degrees [facility] MUSE Calculated T [place] 5 degrees [facility] M[facility] Interpretation EKG NORMAL SINUS RHYTHM NORMAL ECG WHEN COMPARED WITH ECG OF 04-MAR-2014 08:13, NO SIGNIFICANT CHANGE WAS FOUND Confirmed by MD ANTONELLA, [facility] ([id number]) on 03/06/2014 7:19:43 AM [facility] MUSE 03/04/2014 7:55 PM CDT 03/06/2014 7:19 AM CDT Jl Avila MD ECG ORDERABLES Performing Organization Address [facility] Co de Phone Number [facility] * MAGNESIUM BLOOD (03/01/2014 6:08 PM CDT) Only the most recent of3 resultswithin the time period is included. Magnesium 1.9 1.6 - 2.6 mg/dL 03/01/2014 6:42 PM CDT [facility] Blood BLOOD SPECIMEN / Unknown Venipuncture / Unknown 03/01/2014 6:08 PM CDT 03/01/2014 6:16 PM CDT Don Lora MD LAB - CHEMISTRY ORD RAVINDRA Performing Organization Address [facility] Co de Phone Number [facility] [address] [place] [id number] * GLUCOSE CHALLENGE (02/22/2014 4:30 PM CDT) [facility] Glucose Challenge 98 64 - 140 mg/dL 02/22/2014 4:59 PM CDT [facility] Blood BLOOD SPECIMEN / Unknown Venipuncture / Unknown 02/22/2014 4:30 PM CDT 02/22/2014 4:38 PM CDT Xiao FRIAS LAB - CHEM ISTRY ORDERABLES Performing Organization Address [facility] Co de Phone Number [facility] [address] [place] [place] [phone] * PHOSPHORUS BLOOD (02/05/2014 8:14 AM CDT) Only the most recent of2 resultswithin the time period is included. Pathologist [facility] [place] Phosphorus 4.0 2.5 - 4.9 mg/dL 02/05/2014 9:04 AM CDT [facility] Comment: Blood BLOOD SPECIMEN / Unknown Venipuncture / Unknown 02/05/2014 8:14 AM CDT 02/05/2014 8:22 AM CDT Justus Medina MD LAB - CHEMISTRY MICHELLE SHEPARD Performing Organization Address [facility] Co de Phone Number [facility] [address] [place] [place] [phone] * (ABNORMAL) DIGITOXIN LEVEL (02/02/2014 1:29 PM CDT) [facility] Digitoxin <9.0(L) 10.0 - 32.0 ng/mL 02/05/2014 4:02 PM CDT [facility] ([facility]) Comment: INTERPRETIVE INFORMATION: Digitoxin Therapeutic Range: 10.0-32.0 ng/mL Toxic: Greater than 35.0 ng/mL Toxic concentrations may cause nausea, vomiting and cardiac abnormalities. Blood specimen (specimen) BLOOD SPECIMEN / Unknown Venipuncture / Unknown 02/02/2014 1:29 PM CDT 02/02/2014 1:46 PM CDT Justus Medina MD LAB - CHEMISTRY MICHELLE SHEPARD Performing Organization Address [facility] de Phone Number [facility] ([facility]) [address] [place] [address] * FLECAINIDE LEVEL (02/02/2014 1:29 PM CDT) Only the most recent of3 resultswithin the time period is included. Flecainide 0.24 0.20 - 1.00 ug/mL 02/06/2014 9:54 PM CDT [facility] ([facility]) Comment: INTERPRETIVE INFORMATION: Flecainide Therapeutic Range: 0.20-1.00 ug/mL Toxic: Greater than 1.50 ug/mL Toxic concentrations may cause cardiac abnormalities, hypotension and seizure. Blood specimen (specimen) BLOOD SPECIMEN / Unknown Venipuncture / Unknown 02/02/2014 1:29 PM CDT 02/02/2014 1:46 PM CDT Justus Medina MD LAB - CHEMISTRY MICHELLE SHEPARD Performing Organization Address [facility] de Phone Number [facility] ([facility]) [address] [place] [address] * CMV ANTIBODY IGG AVIDITY (02/01/2014 4:40 PM CDT) Cytomegalovirus Antibody IgG Avidity Index 0.84 02/08/2014 3:57 PM CDT [facility] ([facility]) Comment: REFERENCE RANGE: > or = 0.60 INTERPRETIVE CRITERIA: ? < or = 0.50 ??Low Avidity Index ? 0.51 - 0.59 ??Intermediate Avidity Index ? > or = 0.60 ??High Avidity Index Discrimination between recent (primary) and past cytomegalovirus (CMV) infection can be an important tool in the clinical management of transplant recipients and women. Although nearly all individuals with recent CMV infection are positive for CMV IgM, individuals with past CMV may also express CMV IgM following viral reactivation; thus, detection of CMV IgM is not a reliable indicator of recent CMV infection. Measurement of CMV IgG avidity can assist in discriminating recent from past CMV infection. Although a low avidity index is a reliable indicator of CMV infection within the previous 6 months, a high avidity index is more meaningful from a clinical standpoint; a high avidity index essentially excludes the possibility that infection occurred within the previous 4 months. Avidity index values should be considered within the context of other laboratory findings and clinical signs. Performed at: [facility] [employer] [address] [place] [id number] Blood specimen (specimen) BLOOD SPECIMEN / Unknown Venipuncture / Unknown 02/01/2014 4:40 PM CDT 02/01/2014 4:49 PM CDT Nini Loomis MD LAB - SEROLOGY MICHELLE SHEPARD [facility] [employer] [facility]) [address] * CMV ANTIBODY IGG IGM BLOOD PANEL (02/01/2014 4:40 PM CDT) Only the most recent of2 resultswithin the time period is included. Cytomegalovirus Antibody IgG >10.00 U/mL 02/03/2014 10:40 PM CDT [facility] ([facility]) Comment: INTERPRETIVE INFORMATION: Cytomegalovirus Antibody, IgG ??0.59 U/mL or less......... Not Detected ??0.6 - 0.69 U/mL........... Indeterminate-Repeat testing in ? 10-14 days may be helpful. ??0.70 U/mL or greater...... Detected In immunocompromised patients, CMV serology (IgG or IgM antibody titers) may not be reliable and may be misleading in the diagnosis of acute or reactivation CMV disease. The preferred method for diagnosis is culture of virus and/or demonstration of viral antigen in peripheral white cells (buffy coat), bronchoalveolar lavage (BAL) cells, or tissue biopsies. The best evidence for current infection is a significant change on two appropriately timed specimens, where both tests are done in the same laboratory at the same time. Cytomegalovirus Antibody IgM <8.0 <=29.9 AU/mL 02/03/2014 10:40 PM CDT [facility] ([facility]) Comment: INTERPRETIVE INFORMATION: Cytomegalovirus Antibody, IgM ??29.9 AU/mL or Less ....... Not Detected ??30.0-34.9 AU/mL........... Indeterminate-Repeat testing ? in 10-14 days may be helpful. ??35.0 AU/mL or Greater .... Detected-IgM antibody to CMV ? detected which may indicate a ? current or recent infection. ? However, low levels of IgM ? antibodies may occasionally ? persist for more than 12 ? months post-infection. CMV serology is not useful for the evaluation of active or reactivated infection in immunocompromised patients. Molecular diagnostic tests (i.e. PCR)are preferred in these cases. Blood specimen (specimen) BLOOD SPECIMEN / Unknown Venipuncture / Unknown 02/01/2014 4:40 PM CDT 02/01/2014 4:49 PM CDT Nini Loomis MD LAB - CHEMISTRY ORD RAVINDRA [facility] ([facility]) [address] [place] [address], [facility] * SONOGRAM - COMPLETE (02/01/2014 3:13 PM CDT) Only the most recent of5 resultswithin the time period is included. Anatomical Region Laterality Modality Other 02/01/2014 3:13 PM CDT Narrative 02/01/2014 5:09 PM CDT ? [facility] ?PHONE: ??FAX: Pat. Name: ?GABRIELA ALCANTARA Pat. No: ?[id number] Study Date: ?? 02/01/2014 ??3:13pm , Age: ? 1980, 33 Pregnancies: ?? 3, Para 1, Ab 1 LMP: ?08/21/2013 GA by LMP: ?23w3d GA by 1st: ?23w3d GA Selected: ??23w3d (From First S) JOEY: ?05/28/2014 Referring MD: CHANELLE [place] Heater: ??Mary Ann Joshi RDMS Hist/Ind: ? SVT ?+ Penta Screen for T21 ?Maternal Obesity ?Rule Out Hydrops Heart Rate: 191 bpm CLINICAL SUMMARY Study Number: 6 A sweeney fetus is identified in cephalic presentation. ??The placenta is posterior. ??The amniotic fluid volume is within normal limits. ??There is no evidence of hydrops. FHR consistently 190-200 bpm. ??Apparently isolated unilateral (right) mild lateral ventriculomegaly noted (11mm) left ventricle appears normal. DV waveform shows minimal reversal of a wave. IMPRESSION: ?? Single, live, IUP at 23w3d, normal AFV tachycardia with FHR persistently > 190 bpm Possible increased right atrial resistance ??based upon DV Mild unilateral lateral ventriculomegaly RECOMMEND: ?? All findings were reviewed, she elected to proceed with CMV titres/avidity and NIPT to further evaluate the lateral ventriculomegaly ( for DS by pentascreen). ??Discussed with Dr. Chambers, findings are unchanged from her exam 01/31/14, plan to allow 3 dose flecainide washout then start sotalol as inpatient. ??Dr. Lora is systems integration manager this weekend and will follow with antepartum team. ?? Thank you for allowing us the opportunity to care for your patient. Nini Loomis MD <Electronic Signature> ??02/01/2014 05:09pm Nini Loomis MD [facility] ORDERABLES * LAB HISTORICAL RESULTS-ONBASE (01/25/2014) Only the most recent of3 resultswithin the time period is included. 01/25/2014 Narrative [facility] - 01/30/2014 8:30 AM CDT Historical Provider LAB - CHEMISTRY O RDERABLES [facility] [address] [place] [address], [facility] * ECHOCARDIOGRAM 2D WITH DOPPLER (01/05/2014 2:42 PM CDT) 01/05/2014 2:42 PM CDT Narrative [facility] - 01/06/2014 11:12 AM CDT [facility] [address] [place] [id number] Transthoracic Echocardiogram 2D, M-mode, Doppler, and Color Doppler Patient: GABRIELA ALCANTARA MR number: [id number] Height: 64 in Weight: 228.6 lb BSA: 2.07 m?? Study date: 05-Jan-2014 : 1980 Age: 33 years Gender: Female Race: 2 Referring Physician: ??Héctor Baird MD [place] Heater: ??Adebayo Mcgarry [facility] Reading Physician: ??Mack Corbett MD Summary: - ??Clinical question: - ?? Arrhythmia - ??Abnormal EKG - ??Left ventricle: - ??Size was normal. - ??Systolic function was hyperdynamic. Ejection fraction was estimated to be 75 %. - ??There were no regional wall motion abnormalities. - ??Wall thickness was normal. Indications: Arrhythmia Abnormal EKG History: Prior history: Arrhythmia Procedure: The procedure was performed in the echo lab. This was a routine study. The transthoracic approach was used. The study included complete 2D imaging, M-mode, complete spectral Doppler, and color Doppler. Systolic blood pressure was 64 mmHg. Diastolic blood pressure was 229 mmHg. Images were obtained from the parasternal, apical, subcostal, and suprasternal notch acoustic windows. Left ventricle: Size was normal. Systolic function was hyperdynamic. Ejection fraction was estimated to be 75 %. There were no regional wall motion abnormalities. Wall thickness was normal. Aortic valve: The valve was trileaflet. Leaflets exhibited normal thickness and normal cuspal separation. Doppler: There was no stenosis. There was no regurgitation. Aorta: The root exhibited normal size. Mitral valve: Valve structure was normal. There was normal leaflet separation. Doppler: The transmitral velocity was within the normal range. There was no evidence for stenosis. There was no regurgitation. Left atrium: Size was normal. Right ventricle: The size was normal. Systolic function was normal. Wall thickness was normal. Pulmonic valve: Doppler: There was no regurgitation. Pulmonary artery: Doppler: The tricuspid jet envelope definition was inadequate for estimation of RV systolic pressure. Tricuspid valve: The valve structure was normal. There was normal leaflet separation. Doppler: The transtricuspid velocity was within the normal range. There was no evidence for tricuspid stenosis. There was no regurgitation. Right atrium: Size was normal. Pericardium: The pericardium was normal in appearance. System measurement tables 2D Ao Diam: 2.6 cm AV Diam: 2.4 cm IVSd: 1.1 cm LVOT Diam: 1.9 cm LA Diam: 3.1 cm LAAs A2C: 14.5 cm2 LAAs A4C: 16.6 cm2 LAESV A-L A2C: 37.8 ml LAESV A-L A4C: 49 ml LAESV Index (A-L): 20.9 ml/m2 LAESV MOD A2C: 36.3 ml LAESV MOD A4C: 45.5 ml LAESV(A-L): 43.2 ml LALs A2C: 4.7 cm LVIDd: 4.5 cm LVIDs: 3.3 cm LVPWd: 0.8 cm CW AV VTI: 34.2 cm AV Vmax: 2.4 m/s AV Vmean: 1.2 m/s AV maxP.7 mmHg AV meanP.2 mmHg MV VTI: 40.2 cm MV Vmax: 1.9 m/s MV Vmean: 0.8 m/s MV maxP mmHg MV meanP.3 mmHg MM TAPSE: 1.8 cm PW DENZEL (VTI): 2.3 cm2 DENZEL Vmax: 1.7 cm2 LVOT VTI: 26.8 cm LVOT Vmax: 1.4 m/s LVOT Vmean: 1 m/s LVOT maxP.4 mmHg LVOT meanP.6 mmHg MV E/A Ratio: 1.2 MV PHT: 72.5 ms LATERAL E': 0.2 m/s LATERAL E/E': 6.4 SEPTAL E': 0.1 m/s SEPTAL E/E': 8.8 Prepared and signed by Mack Corbett MD Signed 06-Jan-2014 11:11:57 Procedure Note Mack Corbett MD - 01/06/2014 [place] [id number] Transthoracic Echocardiogram 2D, M-mode, Doppler, and Color Doppler Patient: GABRIELA ALCANTARA MR number: [id number] Height: 64 in Weight: 228.6 lb BSA: 2.07 m?? Study date: 05-Jan-2014 : 1980 Age: 33 years Gender: Female Race: 2 Referring Physician: Héctor Baird MD [place] Heater: Adebayo Mcgarry [facility] Reading Physician: Mack Corbett MD Summary: - Clinical question: - Arrhythmia - Abnormal EKG - Left ventricle: - Size was normal. - Systolic function was hyperdynamic. Ejection fraction was estimated to be 75 %. - There were no regional wall motion abnormalities. - Wall thickness was normal. Indications: Arrhythmia Abnormal EKG History: Prior history: Arrhythmia Procedure: The procedure was performed in the echo lab. This was a routine study. The transthoracic approach was used. The study included complete 2D imaging, M-mode, complete spectral Doppler, and color Doppler. Systolic blood pressure was 64 mmHg. Diastolic blood pressure was 229 mmHg. Images were obtained from the parasternal, apical, subcostal, and suprasternal notch acoustic windows. Left ventricle: Size was normal. Systolic function was hyperdynamic. Ejection fraction was estimated to be 75 %. There were no regional wall motion abnormalities. Wall thickness was normal. Aortic valve: The valve was trileaflet. Leaflets exhibited normal thickness and normal cuspal separation. Doppler: There was no stenosis. There was no regurgitation. Aorta: The root exhibited normal size. Mitral valve: Valve structure was normal. There was normal leaflet separation. Doppler: The transmitral velocity was within the normal range. There was no evidence for stenosis. There was no regurgitation. Left atrium: Size was normal. Right ventricle: The size was normal. Systolic function was normal. Wall thickness was normal. Pulmonic valve: Doppler: There was no regurgitation. Pulmonary artery: Doppler: The tricuspid jet envelope definition was inadequate for estimation of RV systolic pressure. Tricuspid valve: The valve structure was normal. There was normal leaflet separation. Doppler: The transtricuspid velocity was within the normal range. There was no evidence for tricuspid stenosis. There was no regurgitation. Right atrium: Size was normal. Pericardium: The pericardium was normal in appearance. System measurement tables 2D Ao Diam: 2.6 cm AV Diam: 2.4 cm IVSd: 1.1 cm LVOT Diam: 1.9 cm LA Diam: 3.1 cm LAAs A2C: 14.5 cm2 LAAs A4C: 16.6 cm2 LAESV A-L A2C: 37.8 ml LAESV A-L A4C: 49 ml LAESV Index (A-L): 20.9 ml/m2 LAESV MOD A2C: 36.3 ml LAESV MOD A4C: 45.5 ml LAESV(A-L): 43.2 ml LALs A2C: 4.7 cm LVIDd: 4.5 cm LVIDs: 3.3 cm LVPWd: 0.8 cm CW AV VTI: 34.2 cm AV Vmax: 2.4 m/s AV Vmean: 1.2 m/s AV maxP.7 mmHg AV meanP.2 mmHg MV VTI: 40.2 cm MV Vmax: 1.9 m/s MV Vmean: 0.8 m/s MV maxP mmHg MV meanP.3 mmHg MM TAPSE: 1.8 cm PW DENZEL (VTI): 2.3 cm2 DENZEL Vmax: 1.7 cm2 LVOT VTI: 26.8 cm LVOT Vmax: 1.4 m/s LVOT Vmean: 1 m/s LVOT maxP.4 mmHg LVOT meanP.6 mmHg MV E/A Ratio: 1.2 MV PHT: 72.5 ms LATERAL E': 0.2 m/s LATERAL E/E': 6.4 SEPTAL E': 0.1 m/s SEPTAL E/E': 8.8 Prepared and signed by Mack Corbett MD Signed 06-Jan-2014 11:11:57 Don Lora MD ECHO ORDERABLES Performing Organization Address [facility]/ZIP Co de Phone Number [facility] [address] [place] [address] * BLOOD TYPE VERIFICATION (01/03/2014 8:06 PM CDT) ABO B 01/03/2014 8:29 PM CDT [facility] Rh Type Positive 01/03/2014 8:29 PM CDT [facility] Miscellaneous samples (specimen) BLOOD SPECIMEN / Unknown 01/03/2014 8:06 PM CDT 01/03/2014 8:06 PM CDT Héctor Baird MD LAB - BLOOD BANK ORD ERABLES Performing Organization Address [facility] Co de Phone Number [facility] [address] [place] [address] * (ABNORMAL) URINALYSIS MICROSCOPIC ONLY W/REFLEX CULTURE (01/03/2014 7:18 PM CDT) RBC UA 0-2 0-2, 2-5 # /hpf 01/03/2014 8:10 PM CDT [facility] Calcium Oxalate Crystals 3+(A) None Seen 01/03/2014 8:10 PM CDT [facility] Urine URINE SPECIMEN OBTAINED BY CLEAN CATCH PROCEDURE / Unknown Collection / Unknown 01/03/2014 7:18 PM CDT 01/03/2014 7:34 PM CDT Nilson Batres MD LAB - URINALYSIS ORD ERABLES Performing Organization Address City/[facility]/ZIP Co de Phone Number [facility] [address] [place] [address] * (ABNORMAL) URINALYSIS ROUTINE W/REFLEX TO CULTURE (01/03/2014 7:18 PM CDT) Color UA Yellow Straw, Yellow, Dark Yellow 01/03/2014 7:48 PM CDT [facility] Clarity UA Cloudy 01/03/2014 7:48 PM CDT [facility] Specific Buckner UA 1.029 1.005 - 1.030 01/03/2014 7:48 PM CDT [facility] pH UA 6.0 5.0 - 8.0 pH 01/03/2014 7:48 PM CDT [facility] Protein UA Negative Negative 01/03/2014 7:48 PM CDT [facility] Blood UA Negative Negative 01/03/2014 7:48 PM CDT [facility] Leukocyte UA 1+(A) Negative 01/03/2014 7:48 PM CDT [facility] Nitrite UA Negative Negative 01/03/2014 7:48 PM CDT [facility] Glucose UA Negative Negative 01/03/2014 7:48 PM CDT [facility] Ketone UA Trace(A) Negative 01/03/2014 7:48 PM CDT [facility] Bilirubin UA Negative Negative 01/03/2014 7:48 PM CDT [facility] Urobilinogen UA 1.0 0.1 - 1.0 EU/dL 01/03/2014 7:48 PM CDT [facility] WBC UA Auto 20-50(A) 0-2, 2-5 #/hpf 01/03/2014 7:48 PM CDT [facility] RBC UA Auto Reflex to manual(A) 0-2, 2-5 #/hpf 01/03/2014 7:48 PM CDT [facility] Epithelial Cell UA Auto 20-50(A) 0-2, 2-5 #/hpf 01/03/2014 7:48 PM CDT [facility] Bacteria UA Auto 2+(A) None seen 01/03/2014 7:48 PM CDT [facility] Hyaline Casts UA Auto 2-5(A) 0 - 2 #/lpf 01/03/2014 7:48 PM CDT [facility] Reflex Status Culture to follow 01/03/2014 7:48 PM CDT [facility] Urine URINE SPECIMEN OBTAINED BY CLEAN CATCH PROCEDURE / Unknown Collection / Unknown 01/03/2014 7:18 PM CDT 01/03/2014 7:34 PM CDT Nilson Batres MD LAB - URINALYSIS ORD ERABLES [facility] [address] [place] [address] * (ABNORMAL) DRUG ABUSE URINE PANEL (01/03/2014 7:17 PM CDT) [facility] Amphetamines Screen Urine Not Detected Not Detected 01/03/2014 8:08 PM CDT [facility] Barbiturates Screen Urine Detected(A) Not Detected 01/03/2014 8:08 PM CDT [facility] Benzodiazepines Screen Urine Not Detected Not Detected 01/03/2014 8:08 PM CDT [facility] Cannabinoids Screen Urine Detected(A) Not Detected 01/03/2014 8:08 PM CDT [facility] Cocaine Screen Urine Not Detected Not Detected 01/03/2014 8:08 PM CDT [facility] Opiate Screen Urine Not Detected Not Detected 01/03/2014 8:08 PM CDT [facility] Phencyclidine Screen Urine Not Detected Not Detected 01/03/2014 8:08 PM CDT [facility] Urine URINE / Unknown Collection / Unknown 01/03/2014 7:17 PM CDT 01/03/2014 7:34 PM CDT Narrative [facility] - 01/03/2014 8:08 PM CDT This drug screen is designed for MEDICAL purposes only. It is not to be used for legal purposes, including but not limited to worker's comp, police investigations, occupational issues, child custody, etc. ??Any positive result is only presumptive and must be confirmed with a separate confirmatory test ordered by the physician. Drug Screening Test Cutoff Values: AMPHETAMINES ?1000 ng/ml BARBITURATES ? 200 ng/ml BENZODIAZEPINES ??200 ng/ml CANNABINOIDS(THC) 50 ng/ml COCAINE ?300 ng/ml OPIATES ?300 ng/ml PHENCYCLIDINE(PCP)25 ng/ml Nilson Batres MD LAB - URINE CHEMISTR Y ORDERABLES [facility] [address] [place] [address] * (ABNORMAL) PARVOVIRUS B19 ANTIBODY PANEL (01/03/2014 7:05 PM CDT) Parvovirus B19 Antibody IgG 5.31(H) <=0.89 IV 01/06/2014 7:44 AM CDT [facility] ([facility]) Comment: INTERPRETIVE INFORMATION: Parvovirus B19 Antibody, IgG ??0.89 IV or less .......... Negative - No significant ? level of detectable Parvovirus ? B19 IgG antibody. ??0.90 - 1.10 IV ........... Equivocal - Repeat testing in ? 10-14 days may be helpful. ??1.11 IV or greater ....... Positive - IgG antibody to ? Parvovirus B19 detected which ? may indicate a current or ? past infection. The best evidence for current infection is a significant change on two appropriately timed specimens, where both tests are done in the same laboratory at the same time. Parvovirus B19 Antibody IgM 0.15 <=0.89 IV 01/06/2014 7:44 AM T [facility] ([facility]) Comment: INTERPRETIVE INFORMATION: Parvovirus B19 Antibody, IgM ??0.89 IV or less .......... Negative - No significant ? level of detectable Parvovirus ? B19 IgM antibody. ??0.90 - 1.10 IV ........... Equivocal - Repeat testing in ? 10-14 days may be helpful. ??1.11 IV or greater ........ Positive - IgM antibody to ? Parvovirus B19 detected which ? may indicate a current or ? recent infection. However, low ? levels of IgM antibodies may ? occasionally persist for more ? than 12 months post-infection. The best evidence for current infection is a significant change on two appropriately timed specimens, where both tests are done in the same laboratory at the same time. Appearance of an IgM antibody response normally occurs 7 to 14 days after the onset of disease. Testing immediately post-exposure is of no value without a later convalescent specimen. A residual IgM response may be distinguished from early IgM response to infection by testing sera from patients three to four weeks later for changing levels of specific IgM antibodies. Blood specimen (specimen) BLOOD SPECIMEN / Unknown Venipuncture / Unknown 01/03/2014 7:05 PM CDT 01/03/2014 7:35 PM CDT Nilson Batres MD LAB - SEROLOGY ORDER [facility] [employer] ([facility]) [address] * HERPES SIMPLEX 1+2 ANTIBODY IGG/IGM PANEL (01/03/2014 7:05 PM CDT) Herpes Simplex Virus 1/2 Antibody IgG >22.40 IV 01/06/2014 12:16 AM CDT [facility] [employer] ([facility]) Comment: INTERPRETIVE INFORMATION: HSV 1/2 COMBINED Ab SCREEN, IgG ??0.89 IV or less.........Not Detected ??0.90-1.09 IV............Indeterminate- Repeat testing ?in 10-14 days may be helpful. ??1.10 IV or greater......Detected The best evidence for current infection is a significant change on two appropriately timed specimens, where both tests are done in the same laboratory at the same time. Herpes Simplex Virus 1/2 Antibody IgM 0.46 <=0.89 IV 01/06/2014 12:16 AM CDT [facility] ([facility]) Comment: INTERPRETIVE INFORMATION: Herpes Simplex Virus Type 1 and/or 2 Antibodies, IgM by KIERA ??0.89 IV or Less .......... Not Detected ??0.90 - 1.09 IV ........... Indeterminate- Repeat testing in ? 10-14 days may be helpful. ??1.10 IV or Greater ....... Detected-IgM antibody to HSV ? detected, which may indicate a ? current or recent infection. ? However, low levels of IgM ? antibodies may occasionally ? persist for more than 12 ? months post-infection. Blood specimen (specimen) BLOOD SPECIMEN / Unknown Venipuncture / Unknown 01/03/2014 7:05 PM CDT 01/03/2014 7:35 PM CDT Nilson Batres MD LAB - CHEMISTRY MICHELLE Lux Organization Address City/State/ZIP Co de Phone Number [facility] [employer] [facility]) [address] [place] [phone], [facility] * VARICELLA ZOSTER ANTIBODY IGM (01/03/2014 7:05 PM CDT) Varicella zoster Virus Antibody IgM 0.24 <=0.90 ISR 01/06/2014 12:25 AM CDT [facility] - [place] ([facility]) Comment: INTERPRETIVE INFORMATION: Varicella-Zoster Virus Antibody, IgM ??0.90 ISR or less ........ Negative - No significant ?level of detectable ?varicella-zoster virus ?IgM antibody. ??0.91-1.09 ISR ........... Equivocal - Repeat testing in ?10-14 days may be helpful. ??1.10 ISR or greater ..... Positive - Significant level ?of detectable varicella-zoster ?virus IgM antibody. Indicative ?of current or recent infection. ?However, low levels of IgM ?antibodies may occasionally ?persist for more than 12 months ?post-infection or immunization. Blood specimen (specimen) BLOOD SPECIMEN / Unknown Venipuncture / Unknown 01/03/2014 7:05 PM CDT 01/03/2014 7:34 PM CDT Nilson Batres MD LAB - CHEMISTRY MICHELLE SHEPARD [facility]) [address] [place] [address], [facility] * VARICELLA ZOSTER ANTIBODY IGG (01/03/2014 7:05 PM CDT) Varicella zoster Virus Antibody IgG 1769.0 IV 01/05/2014 12:55 PM CDT [facility] [place] ([facility]) Comment: INTERPRETIVE INFORMATION: VZV Ab, IgG ??134 IV or less ....... Negative - No significant level ? of detectable IgG varicella- ? zoster antibody. ??135 -165 IV .......... Equivocal - Repeat testing in ? 10-14 days may be helpful. ??166 IV or greater .... Positive - IgG antibody to ? varicella-zoster detected, which ? may indicate a current or ? past varicella-zoster ? infection. The best evidence for current infection is a significant change on two appropriately timed specimens, where both tests are done in the same laboratory at the same time. Blood specimen (specimen) BLOOD SPECIMEN / Unknown Venipuncture / Unknown 01/03/2014 7:05 PM CDT 01/03/2014 7:34 PM CDT Nilson Batres MD LAB - CHEMISTRY [facility]HELLE SHEPARD [facility]) [address] [place] [address] * RUBELLA ANTIBODY IGG (01/03/2014 7:05 PM CDT) Rubella Antibody IgG Positive - Immune 01/03/2014 10:45 PM CDT [facility] Blood BLOOD SPECIMEN / Unknown Venipuncture / Unknown 01/03/2014 7:05 PM CDT 01/03/2014 7:31 PM CDT Nilson Batres MD LAB - SEROLOGY ORDER AEDLIA Performing Organization Address [facility] Co de Phone Number [facility] [address] [place] [address] * HEMOGLOBIN ELECTROPHORESIS (01/03/2014 7:05 PM CDT) Hemoglobin A1 97.4 97.1 - 99.1 % 01/10/2014 11:05 AM CDT [facility] Hemoglobin A2 2.6 0.9 - 2.9 % 01/10/2014 11:05 AM CDT [facility] Interpretation Normal Interpretation 01/10/2014 11:05 AM CDT [facility] Blood BLOOD SPECIMEN / Unknown Venipuncture / Unknown 01/03/2014 7:05 PM CDT 01/03/2014 7:31 PM CDT Nilson Batres MD LAB - CHEMISTRY MICHELLE SHEPARD Performing Organization Address City/[facility] Co de Phone Number [facility] [address] [place] [address] * SS-B ANTIBODY (01/03/2014 7:05 PM CDT) Pathologist [facility] [place] SS-B Antibody 1 0 - 40 AU/mL 01/05/2014 8:06 PM CDT [employer] ([facility]) Comment: INTERPRETIVE INFORMATION: SSB (La) (MEAGAN) Ab, IgG ??29 AU/mL or Less ............. Negative ??30 - 40 AU/mL ................ Equivocal ??41 AU/mL or Greater .......... Positive SSB (La) antibody is seen in 50-60% of Sjogren syndrome cases and is specific if it is the only MEAGAN antibody present. 15-25% of patients with systemic lupus erythematosus (SLE) and 5-10% of patients with progressive systemic sclerosis (PSS) also have this antibody. Blood specimen (specimen) BLOOD SPECIMEN / Unknown Venipuncture / Unknown 01/03/2014 7:05 PM CDT 01/03/2014 7:34 PM CDT Nilson Batres MD LAB - CHEMISTRY [facility]HELLE [facility] Organization Address City/State/ZIP Co de Phone Number [facility] [employer] [facility]) [address] * SS-A ANTIBODY (01/03/2014 7:05 PM CDT) SS-A Antibody 7 0 - 40 AU/mL 01/05/2014 8:06 PM CDT [facility] [employer] ([facility]) Comment: INTERPRETIVE INFORMATION: SSA (Ro) (MEAGAN) Ab, IgG ??29 AU/mL or Less ............. Negative ??30 - 40 AU/mL ................ Equivocal ??41 AU/mL or Greater .......... Positive SSA (Ro) antibody is seen in 70-75% of Sjogren syndrome cases, 30-40% of systemic lupus erythematosus (SLE) and 5-10% of progressive systemic sclerosis (PSS). Blood specimen (specimen) BLOOD SPECIMEN / Unknown Venipuncture / Unknown 01/03/2014 7:05 PM CDT 01/03/2014 7:34 PM CDT Nilson Batres MD LAB - CHEMISTRY MICHELLE SHEPARD [employer] [facility]) [address] [place] [address], [facility] * TOXOPLASMA ANTIBODY IGG/IGM PANEL (01/03/2014 7:05 PM CDT) Toxoplasma Antibody IgM <3.0 <=7.9 AU/mL 01/05/2014 1:15 PM CDT [facility] [employer] ([facility]) Comment: INTERPRETIVE INFORMATION: Toxoplasma Ab, IgM ??7.9 AU/mL or less .... Not Detected. ??8.0-9.9 AU/mL ........ Indeterminate - Repeat testing in ? 10-14 days may be helpful. ??10.0 AU/mL or greater. Detected - Significant level of ? Toxoplasma gondii IgM antibody ? detected and may indicate a current ? or recent infection. However, low ? levels of IgM antibodies may ? occasionally persist for more than ? 12 months post-infection. This test is performed using the idio LIAISON. As suggested by the CDC, any indeterminate or detected Toxoplasma gondii IgM result should be retested in parallel with a specimen collected 1-3 weeks later. Further confirmation may be necessary using a different test from another reference laboratory specializing in toxoplasmosis testing where an IgM KIERA should be ordered. Caution should be exercised in the use of IgM antibody levels in screening. Any Toxoplasma gondii IgM in patients that have also been confirmed by a second reference laboratory should be evaluated by amniocentesis and PCR testing for Toxoplasma gondii. For male and non- female patients with indeterminate or detected Toxoplasma gondii IgM results, PCR may also be useful if a specimen can be collected from an affected body site. For additional information, refer to the CDC website: www.cdc.gov/parasites/toxoplasmosis/health_professionals/ind ex.html. Toxoplasma Antibody IgG <3.0 IU/mL 01/05/2014 1:15 PM CDT [facility] [place] ([facility]) Comment: INTERPRETIVE INFORMATION: Toxoplasma Ab, IgG ??7.1 IU/mL or less....... Not Detected ??7.2-8.7 IU/mL .......... Indeterminate-Repeat testing in ? 10-14 days may be helpful. ??8.8 IU/mL or greater ... Detected The best evidence for current infection is a significant change on two appropriately timed specimens, where both tests are done in the same laboratory at the same time. Blood specimen (specimen) BLOOD SPECIMEN / Unknown Venipuncture / Unknown 01/03/2014 7:05 PM CDT 01/03/2014 7:35 PM CDT Nilson Batres MD LAB - CHEMISTRY MICHELLE SHEPARD [facility] Organization Address City/State/ZIP Co de Phone Number [facility] [place] ([facility]) [address] * KLEIHAUER BETKE STAIN (01/03/2014 7:05 PM CDT) Number Cells Counted 0 01/03/2014 8:22 PM CDT [facility] /Maternal Ratio 0 <=0 01/03/2014 8:22 PM CDT [facility] Blood Bank BLOOD SPECIMEN / Unknown Venipuncture / Unknown 01/03/2014 7:05 PM CDT 01/03/2014 7:31 PM CDT Narrative [facility] - 01/03/2014 8:22 PM CDT ?RHOGAM DOSAGE CHART F/A ratio ?FMH Range (ml) ? 300 ug vial dose ?0 - 0.0029 ? 0 - 14.9 ? 1 0.003 - 0.0089 ?15.0 - 44.9 ? 2 0.009 - 0.0149 ?45.0 - 74.9 ? 3 0.015 - 0.0209 ?75.0 - 104.9 ?4 0.021 - 0.0269 ? 105.0 - 134.9 ?5 0.027 - 0.0329 ? 135.0 - 164.9 ?6 0.033 - 0.0389 ? 165.0 - 194.9 ?7 0.039 - 0.0449 ? 195.0 - 224.9 ?8 0.045 - 0.0509 ? 225.0 - 254.9 ?9 0.051 - 0.0569 ? 255.0 - 284.9 ? 10 0.057 - 0.0629 ? 285.0 - 314.9 ? 11 0.063 - 0.0689 ? 315.0 - 344.9 ? 12 0.069 - 0.0749 ? 345.0 - 374.9 ? 13 0.075 - 0.0809 ? 375.0 - 404.9 ? 14 0.081 - 0.0869 ? 405.0 - 434.9 ? 15 0.087 - 0.0929 ? 435.0 - 464.9 ? 16 0.093 - 0.0989 ? 465.0 - 494.5 ? 17 0.099 - 0.100 ?495.0 - 500.0 ? 18 Please note: No Rhogam is recommended for mothers who are Rh positive. Nilson Batres MD LAB - HEMATOLOGY ORD RAVINDRA Performing Organization Address [facility] Co de Phone Number [facility] [address] [place] [address] * TSH (01/03/2014 7:05 PM CDT) Pathologist [facility] TSH 0.490 0.358 - 3.740 uIU/mL 01/03/2014 8:12 PM CDT [facility] Comment: Blood BLOOD SPECIMEN / Unknown Venipuncture / Unknown 01/03/2014 7:05 PM CDT 01/03/2014 7:31 PM CDT Nilson Batres MD LAB - CHEMISTRY MICHELLE SHEPARD Performing Organization Address [facility] de Phone Number [facility] [address] [place] [address] * T4 FREE (01/03/2014 7:05 PM CDT) Pathologist [facility] T4 Free 0.97 0.65 - 1.34 ng/dL 01/03/2014 8:04 PM CDT [facility] Comment: Blood BLOOD SPECIMEN / Unknown Venipuncture / Unknown 01/03/2014 7:05 PM CDT 01/03/2014 7:31 PM CDT Nilson Batres MD LAB - CHEMISTRY MICHELLE SHEPARD Performing Organization Address [facility] de Phone Number [facility] [address] [place] [address] * PROFILE I W/ HBSAG (05/31/1998 12:00 AM PEDIATRIC DENTAL ASSISTANT) Rh Type positive [facility] ABO B [facility] 05/31/1998 Narrative COUNT INCLUDES THE [facility] - 05/31/1998 12:00 AM PEDIATRIC DENTAL ASSISTANT This external order was created through the Results Console. [facility] Provider LAB - CHEMISTRY O RDERABLES COUNT INCLUDES THE [facility] Care Teams Delivery Crew Worker Relationship Specialty Start Date End Date Faisal Uribe PA [address] [place], [place] [id number] PCP - General 03/30/19
--- OUTSIDE RECORDS SUMMARY | 2024-06-23 04:48 | XMS_ITS | Clinical Summary ---
Author Organization [facility] Address [address] [place] [address]. [place], [place] [id number] [place] [id number] Care Team Providers Care Power Line Installer Name Role Phone None, Provider MD Primary Care Provider Unavaila ble Allergies No known active allergies Medications fluticasone propionate (FLONASE) 50 MCG/ACT nasal spray 1 spray by Nasal route 2 (two) times a day. 16 g 06/23/2018 Active Guaifenesin-Code ine 100-10 MG/5ML Syrup Take 5 mLs by mouth every 6 (six) hours as needed (cough). 120 mL 06/23/2018 Active diclofenac EC 75 MG tablet Take 1 tablet (75 mg total) by mouth 2 (two) times daily as needed (Pain. Please take with meals). 30 tablet 10/26/2019 Active Social History Tobacco Use Types Packs/Day Years Used Date Smoking Tobacco: Every Day Smokeless Tobacco: Never Alcohol Use Standard Drinks/Week Comments Yes 0 (1 standard drink = 0.6 oz pur e alcohol) socially Comments No Sex and Gender Information Value Date Recorded Sex Assigned at Not on file Legal Sex Female 2:16 PM CDT Gender Identity Not on file Sexual Orientation Not on file Last Filed Vital Signs Vital Sign Reading Time Taken Comments Blood Pressure 130/79 10/26/2019 2:00 AM CDT Pulse 83 10/26/2019 12:22 AM CDT Temperature 36.9 ??C (98.5 ??F) 10/26/2019 1 2:22 AM CDT Respiratory Rate 18 10/26/2019 2:00 AM CDT Oxygen Saturation 99% 10/26/2019 2:00 AM CDT Inhaled Oxygen Concentration - - Weight 117.7 kg (259 lb 6.4 oz) 020 12:22 AM CDT Height 162.6 cm (5' 4 ) 10/26/2019 12:2 2 AM CDT Body Mass Index 44.53 10/26/2019 12:22 AM CDT Plan of Treatment Health Maintenance Due Date Last Done Comments Cervical Cancer Screening Pap Smear (Age 30 to 64) Every 3 Years 1979 Annual Physical 1982 Pneumococcal Vaccine: Pediatrics (0 to 5 Years) and At-Risk Patients (6 to 64 Years) (1 of 2 - PCV) 1985 DTaP, Tdap and Td Vaccines (6 - Tdap) 1990 12/10/1989, 01/21/1985, 05/08/1981, Additional history exists Hepatitis B Vaccines (2 of 3 - 3-dose series) 06/27/1997 05/30/1997 Hepatitis C 1997 Cervical Cancer Screening Pap with HPV Testing (Age 30 to 64) Every 5 Years 2009 Cervical Cancer Screening with HPV 2009 Mammogram Screening 2019 COVID-19 Vaccine ( season) 2024 Influenza Adult (#1) 2024 HPV Vaccines Aged Out No longer eligi ble based on patient's age to complete this topic Meningococcal Vaccine Aged Out No lenora jax eligible based on patient's age to complete this topic RSV Immunizations Under 20 Months Aged Out No longer eligible based on patient's age to complete this topic Insurance Care Teams Power Line Installer Relationship Specialty Start Date End Date None, Provider, PCP - General 06/23/18
--- OUTSIDE RECORDS SUMMARY | 2024-06-23 04:48 | XMS_ITS | CONTINUITY OF CARE DOCUMENT ---
Author Name mia bellamy Address Unknown Organization [facility] Address [address] [place] [address] Phone [phone] Care Team Providers Care Road Worker Name Role Phone Nish Valdez MD Unavailable [phone] LUKE MCLAUGHLIN MD Unavailable [phone] LUKE MCLAUGHLIN MD Unavailable [phone] INSURANCE PROVIDERS Payer name Policy type / Coverage type Brothers red republican ID [employer] [facility] Medicaid [id number]
--- OUTSIDE RECORDS SUMMARY | 2024-06-23 04:48 | XMS_ITS | Data Portability ---
Author Organization [facility] Address [address] [place] [address] Care Team Providers Care Sheepskin Pickler Name Role Phone CARLO URIBE Primary Care Provider [phone] Assessment No assessment recorded. Plan of Treatment Reminders Order Date Submit Date Provider Last Modified By Organization Details Last Modified Time Details Appointments None recorded. Lab CBC 2016 017 [facility] [facility], [address], [place], [address], 7 15:08:05 pap, IG + reflex HR HPV (16+18) 2016 017 [facility], [address] [facility], [address], [place], [address], 7 17:06:56 HbA1c (hemoglobi n A1c), blood 2016 017 [facility], [facility], [address], [place], [address], 7 15:08:04 CMP, serum or plasma 2016 017 [facility], [address] [facility] [address], [address], [place], [address], 7 15:08:05 TSH, ultra-sens itive, serum 2016 017 [facility], [address], [address], [place], [address], 7 15:08:05 lipid panel, serum 2016 017 [facility], [address], [address], [place], [address], 7 15:08:04 urinalysis , dipstick 2018 019 [email or web address] In-Office Order, Internal Use Only DO Not Attach Compendium DO Not Attach Compendium, Do Not Delete/merge, [id number] 09:08:42 culture, urine 2018 019 [facility], [address], [address], [place], [address], 9 15:10:15 HbA1c (hemoglobi n A1c), blood 2018 019 [facility], [address], [address], [place], [address], 9 10:10:14 lipid panel, serum 2018 019 [facility], [address], [address], [place], [address], 9 10:10:14 CBC w/ auto diff 2018 019 [facility], [address], [address], [place], [address], 9 10:10:13 TSH, ultra-sens itive, serum 2018 019 [facility], [address], [address], [place], [address], 9 10:10:15 pap, IG + reflex HR HPV (16+18) 2018 019 [facility], [address] [facility] [address], [address], [place], [address], 9 17:08:16 unlisted lab - nuswab vg+, wesly 6sp 2018 019 [facility], [address] [facility] [address], [address], [place], [address], 9 17:07:15 pathology study - ecc and 9 oclock 2018 019 [facility], [address] [facility], [address], [place], [address], 9 20:07:57 test, urine 2018 [email or web address] In-Office Order, Internal Use Only DO Not Attach Compendium DO Not Attach Compendium, Do Not Delete/merge, [id number] 17:29:17 Referral orthopedic referral - Please eval and treat 38 year old female with BL OA of the knees. 2018 [email or web address] Not available 13:30:33 Procedures None recorded. Surgeries None recorded. Imaging XR, knee, 4 or more view - 38 year old female with chronic, bilateral knee pain 2018 Not available 9 15:42:36 Medication Orders naproxen 500 mg tablet 2018 019 [id number], [address], [place], [id number], 9 14:57:38 Macrobid 100 mg capsule 2018 019 [id number], [address], [place], [id number], 9 15:42:21 amoxicilli n 875 mg tablet 2018 019 INTERFACE [id number], [address], [place], [id number], 9 13:22:54 ibuprofen 800 mg tablet 2018 019 [facility] #68944, [address], [place], [id number], 9 13:22:55 Patient TargetsNo targets recorded. Patient Instructions Encounter Date Encounter Id Patient Instructions Last Modified By Organization Details Last Modified Time 02/10/2019 [id number] abnormal Pap test: care instructions [email or web address] Not available 02/10/2019 17:29:17 colposcopy: before your procedure [email or web address] Not available 02/10/2019 17:29:17 I certify that I was present and available in the [facility] for discussion of this patient. I have reviewed the resident's note and agree with the stated assessment and treatment plan. I participated in all madison aspects of the procedure as required. elizabeth Not available 03/07/2019 11:37:16 Reason for Referral Orthopedic Referral for Oste oarthritis of knee Please eval and treat 38 year old female with BL OA of the knees. Referring Physician: Carlo Uribe, Ambulance Attendant, Encounter Date: 01/09/2019 Results Created Date Observation Date Name Description Value Unit Range Abnormal Flag Note LastModifiedBy Organization Detail LastModifiedTime 02/11/20 19 02/10/2019 pregn steff test, urine HCG negati ve Not Available In-Office Order Internal Use Only DO Not Attach Compendium DO Not Attach Compendium, Do Not Delete/merge, [id number] 02/10/2019 16:32:55 11/26/19 17 11/27/2016 pap, IG + refle x HR HPV (16+1 8) diagnosis: COMMEN T NEGAT NAIF FOR INTRA EPITH ELIAL MARISSA Durán AND JESSICA DILLON . Not Available [facility] ([facility]) [address] [place], [address], 12/01/2016 17:06:56 11/26/19 17 11/27/2016 pap, IG + refle x HR HPV (16+1 8) specimen adequacy: BARBARA Lopez SATIS FACTO RY FOR EVALU ATION . ENDOC ERVIC AL AND/O R SQUAM OUS METAP LASTI C CELLS (ENDO CERVI JA COMPO NENT) ARE PRESE NT. Not Available [facility] ([facility]) [address] [place], [address], 12/01/2016 17:06:56 11/26/19 17 11/27/2016 pap, IG + refle x HR HPV (16+1 8) clinician provided ICD10: BARBARA Lopez Z00.0 0 N92.1 Z01.4 19 Not Available [facility] ([facility]) [address] [place], [address], 12/01/2016 17:06:56 11/26/19 17 11/27/2016 pap, IG + refle x HR HPV (16+1 8) performed by: REBECCA SINGLETON (ASCP ) Not Available [facility] ([facility]) [address] [place], [address], 12/01/2016 17:06:56 11/26/19 17 11/27/2016 pap, IG + refle x HR HPV (16+1 8) . . Not Available [facility] ([facility]) [address] [place], [address], 12/01/2016 17:06:56 11/26/19 17 11/27/2016 pap, IG + refle x HR HPV (16+1 8) note: BARBARA Lopez THE PAP SMEAR IS A SCREE LEIF TEST DESIG JOCELYN TO AID IN THE DETEC TION OF TIANNA LIGNA NT AND MALIG NANT CONDI TIONS OF THE UTERI NE CERVI X. IT IS NOT A DIAGN OSTIC PROCE DURE AND SHOUL D NOT BE USED THE SOLE MEANS OF DETEC TING CERVI JA CANCE R. BOTH FALSE -POSI TIVE AND FALSE -NEGA TIVE REPOR TS DO OCCUR . Not Available [facility] ([facility]) [address] [place], [address], 12/01/2016 17:06:56 11/26/19 17 11/27/2016 pap, IG + refle x HR HPV (16+1 8) test methodology: COMMEN T THIS LIQUI D BASED THINP REP(R ) PAP TEST WAS SCREE JOCELYN WITH THE USE OF AN IMAGE GUIDE Bryson Torrez. Not Available [facility] ([facility]) [address] [place], [address], 12/01/2016 17:06:56 11/26/19 17 11/30/2016 pap, IG + refle x HR HPV (16+1 8) HPV, high-risk POSITI VE negati ve abnormal THIS HIGH- RISK HPV TEST DETEC TS THIRT EEN HIGH- RISK TYPES (16/1 8/31/ 33/35 /39/4 5/51/ 52/56 /58/5 ) WITHO UT DIFFE RENTI ATION . Not Available [facility] ([facility]) [address] [place], [address], 12/01/2016 17:06:56 11/26/1912/01/2016 pap, IG + refle x HR HPV (16+1 8) HPV genotype, 16 NEGATI VE negati ve Not Available [facility] ([facility]) [address] [place], [address], 12/01/2016 17:06:56 11/26/1912/01/2016 pap, IG + refle x HR HPV (16+1 8) HPV genotype, 18 NEGATI VE negati ve Not Available [facility] ([facility]) [address] [place], [address], 12/01/2016 17:06:56 01/10/20 19 01/12/2019 cultu re, urine urine culture, routine Final report abnormal Not Available [facility] ([facility]) [address] [facility], [place], [address], 01/12/2019 15:10:14 01/10/20 19 01/12/2019 cultu re, urine result 1 Escher ichia coli abnormal Great er than 100,0 00 colon y formi ng units per mL Not Available [facility] ([facility]) [address] [facility], [place], [address], 01/12/2019 15:10:14 01/10/20 19 01/12/2019 cultu re, urine antimicrobia l susceptibili ty Commen t S = Susce ptibl e; I = Inter media te; R = Resis tant P = Posit naif; N = Negat naif MICS are expre ssed in micro grams per mL Antib iotic RSLT# 1 RSLT# 2 RSLT# 3 RSLT# 4 Amoxi cilli n/Cla vulan ic Acid R Ampic illin R Cefaz tano R Cefep cathi S Ceftr iaxon e S Cefur oxime R Cipro floxa becki S Ertap enem S Genta micin S Imipe nem S Levof loxac in S Merop enem S Nitro furan toin S Piper acill in/Ta zobac hadley S Tetra cycli ne S Tobra mycin S Trime thopr im/Salmon lfa S Not Available [facility] ([facility]) [address] [facility], [place], [address], 01/12/2019 15:10:14 01/10/20 19 01/09/2019 urina lysis , dipst ick Leukocytes Small Not Available In-Offi ce Order Internal Use Only DO Not Attach Compendium DO Not Attach Compendium, Do Not Delete/merge, [id number] 01/09/2019 15:38:50 01/10/20 19 01/09/2019 urina lysis , dipst ick Nitrite positi ve Not Available In-Office Order Internal Use Only DO Not Attach Compendium DO Not Attach Compendium, Do Not Delete/merge, [id number] 01/09/2019 15:38:50 01/10/20 19 01/09/2019 urina lysis , dipst ick Urobilinogen 1 Not Available In-Of fice Order Internal Use Only DO Not Attach Compendium DO Not Attach Compendium, Do Not Delete/merge, 01/09/2019 15:38:50 01/10/20 19 01/09/2019 urina lysis , dipst ick Protein Negati ve Not Available In-Office Order Internal Use Only DO Not Attach Compendium DO Not Attach Compendium, Do Not Delete/merge, 01/09/2019 15:38:50 01/10/20 19 01/09/2019 urina lysis , dipst ick pH 7.0 Not Available In-Office Order Internal Use Only DO Not Attach Compendium DO Not Attach Compendium, Do Not Delete/merge, 01/09/2019 15:38:50 01/10/20 19 01/09/2019 urina lysis , dipst ick Blood Negati ve Not Available In-Office Order Internal Use Only DO Not Attach Compendium DO Not Attach Compendium, Do Not Delete/merge, 01/09/2019 15:38:50 01/10/20 19 01/09/2019 urina lysis , dipst ick Specific [place] 1.020 Not Available In-Off ice Order Internal Use Only DO Not Attach Compendium DO Not Attach Compendium, Do Not Delete/merge, 01/09/2019 15:38:50 01/10/20 19 01/09/2019 urina lysis , dipst ick Ketone Negati ve Not Available In-Office Order Internal Use Only DO Not Attach Compendium DO Not Attach Compendium, Do Not Delete/merge, 01/09/2019 15:38:50 01/10/20 19 01/09/2019 urina lysis , dipst ick Bilirubin Negati ve Not Available In-Office Order Internal Use Only DO Not Attach Compendium DO Not Attach Compendium, Do Not Delete/merge, 01/09/2019 15:38:50 01/10/2001/09/2019 urina lysis , dipst ick Glucose Negati ve Not Available In-Office Order Internal Use Only DO Not Attach Compendium DO Not Attach Compendium, Do Not Delete/merge, [id number] 01/09/2019 15:38:50 01/10/20 19 01/09/2019 urina lysis , dipst ick Appearance Cloudy Not Available In-Offi ce Order Internal Use Only DO Not Attach Compendium DO Not Attach Compendium, Do Not Delete/merge, [id number] 01/09/2019 15:38:50 01/10/20 19 01/09/2019 urina lysis , dipst ick Color Yellow Not Available In-Office Order Internal Use Only DO Not Attach Compendium DO Not Attach Compendium, Do Not Delete/merge, [id number] 01/09/2019 15:38:50 01/20/20 19 01/21/2019 bacte rial vagin osis + vagin itis panel , vagin al atopobium vaginae High - 2 score abnormal Not Available [facility] ([facility]) [address] [place], [address], 01/22/2019 17:07:15 01/20/20 19 01/21/2019 bacte rial vagin osis + vagin itis panel , vagin al bvab 2 High - 2 score abnormal Not Available [facility] ([facility]) [address] [place], [address], 01/22/2019 17:07:15 01/20/20 19 01/21/2019 bacte rial vagin osis + vagin itis panel , vagin al megasphaera 1 High - 2 score abnormal Calcu late total score by addin g the 3 indiv idual bacte rial vagin osis (BV) marke r score s toget her. Total score is inter prete d as follo ws: Total score 0-1: Indic ates the absen ce of BV. Total score 2: Indet ermin ate for BV. Addit ional clini ja data shoul d be evalu ated to estab jalil a diagn osis. Total score 3-6: Indic ates the prese nce of BV. This test was devel oped and its perfo rmanc e srinivasan cteri stics deter mined by [employer]. It has not been clear ed or appro jakob by the Food and Drug Admin istra tion. The FDA has deter mined that such clear ance or appro candace is not neces slava. Not Available [facility] ([facility]) [address] [place], [address], 01/22/2019 17:07:15 01/20/20 19 01/21/2019 bacte rial vagin osis + vagin itis panel , vagin al wesly albicans, SEAN Negati ve negati ve Not Available [facility] ([facility]) [address] [place], [address], 01/22/2019 17:07:15 01/20/20 19 01/21/2019 bacte rial vagin osis + vagin itis panel , vagin al wesly glabrata, SEAN Negati ve negati ve This test was devel oped and its perfo rmanc e srinivasan cteri stics deter mined by [employer] [facility]. It has not been clear ed or appro jakob by the Food and Drug Admin istra tion. The FDA has deter mined that such clear ance or appro candace is not neces slava. Not Available [facility] ([facility]) [address] [facility], [place], [address], 01/22/2019 17:07:15 01/20/20 19 01/21/2019 bacte rial vagin osis + vagin itis panel , vagin al trich vag by SEAN Negati ve negati ve Not Available [facility] ([facility]) [address] [place], [address], 01/22/2019 17:07:15 01/20/20 19 01/21/2019 bacte rial vagin osis + vagin itis panel , vagin al chlamydia trachomatis, SEAN Negati ve negati ve Not Available [facility] ([facility]) [address] [place], [address], 01/22/2019 17:07:15 01/20/20 19 01/21/2019 bacte rial vagin osis + vagin itis panel , vagin al neisseria gonorrhoeae, SEAN Negati ve negati ve Not Available [facility] ([facility]) [address] [place], [address], 01/22/2019 17:07:15 01/20/20 19 01/22/2019 bacte rial vagin osis + vagin itis panel , vagin al wesly tropicalis, SEAN Negati ve negati ve Not Available [facility] ([facility]) [address] [place], [address], 01/22/2019 17:07:15 01/20/20 19 01/22/2019 bacte rial vagin osis + vagin itis panel , vagin al wesly parapsilosis , SEAN Negati ve negati ve Not Available [facility] ([facility]) [address] [place], [address], 01/22/2019 17:07:15 01/20/20 19 01/22/2019 bacte rial vagin osis + vagin itis panel , vagin al wesly lusitaniae, SEAN Negati ve negati ve Not Available [facility] ([facility]) [address] [place], [address], 01/22/2019 17:07:15 01/20/20 19 01/22/2019 bacte rial vagin osis + vagin itis panel , vagin al wesly krusei, SEAN Negati ve negati ve This test was devel oped and its perfo rmanc e srinivasan cteri stics deter mined by [facility]. It has not been clear ed or appro jakob by the Food and Drug Admin istra tion. The FDA has deter mined that such clear ance or appro candace is not neces slava. Not Available [facility] ([facility]) [address] [place], [address], 01/22/2019 17:07:15 01/20/20 19 01/23/2019 pap, IG + refle x HR HPV (16+1 8) diagnosis: Barbara t abnormal EPITH ELIAL CELL ABNOR MALIT Y. LOW GRADE SQUAM OUS INTRA EPITH ELIAL LESIO N (LSIL ). Not Available [facility] ([facility]) [address] [place], [address], 01/23/2019 17:08:16 01/20/20 19 01/23/2019 pap, IG + refle x HR HPV (16+1 8) recommendati on: Barbara t abnormal Sugge st follo w up as clini sweta appro priat e. Not Available [facility] ([facility]) [address] [facility], [place], [address], 01/23/2019 17:08:16 01/20/20 19 01/23/2019 pap, IG + refle x HR HPV (16+1 8) specimen adequacy: Barbara t Satis facto ry for evalu ation . Endoc ervic al and/o r squam ous metap lasti c cells (endo cervi ja compo nent) are prese nt. Not Available [facility] ([facility]) [address] [facility], [place], [address], 01/23/2019 17:08:16 01/20/20 19 01/23/2019 pap, IG + refle x HR HPV (16+1 8) clinician provided ICD10: Barbara lopez Z01.4 19 Not Available [facility] ([facility]) [address] [place], [address], 01/23/2019 17:08:16 01/20/20 19 01/23/2019 pap, IG + refle x HR HPV (16+1 8) performed by: Barbara riley, Cytot herman lopez (ASCP ) Not Available [facility] ([facility]) [address] [place], [address], 01/23/2019 17:08:16 01/20/20 19 01/23/2019 pap, IG + refle x HR HPV (16+1 8) electronical ly signed by: Barbara Torrez MD, Patho [email or web address] t Not Available [facility] ([facility]) [address] [facility], [place], [address], 01/23/2019 17:08:16 01/20/20 19 01/23/2019 pap, IG + refle x HR HPV (16+1 8) . . Not Available [facility] ([facility]) [address] [facility], [place], [address], 01/23/2019 17:08:16 01/20/20 19 01/23/2019 pap, IG + refle x HR HPV (16+1 8) pathologist provided ICD10: Barbara lopez R87.6 12 Not Available [facility] ([facility]) [address] [facility], [place], [address], 01/23/2019 17:08:16 01/20/20 19 01/23/2019 pap, IG + refle x HR HPV (16+1 8) note: Barbara t The Pap smear is a scree leif test desig jocelyn to aid in the detec tion of tianna ligna nt and malig nant condi tions of the uteri ne cervi x. It is not a diagn ostic proce dure and shoul d not be used as the sole means of detec ting cervi ja cance r. Both false -posi tive and false -nega tive repor ts do occur . Not Available [facility] ([facility]) [address] [facility], [place], [address], 01/23/2019 17:08:16 01/20/20 19 01/23/2019 pap, IG + refle x HR HPV (16+1 8) test methodology: Barbara t This liqui d based ThinP rep(R ) pap test was scree jocelyn with the use of an image guide d syste m. Not Available [facility] ([facility]) [address] [facility], [place], [address], 01/23/2019 17:08:16 01/20/2001/23/2019 pap, IG + refle x HR HPV (16+1 8) HPV, high-risk Positi ve negati ve abnormal This high- risk HPV test detec ts thirt een high- risk types (16/1 8/31/ 33/35 /39/4 5/51/ 52/56 /58/5 /) witho ut diffe renti ation . Not Available [facility] ([facility]) [address] [facility], [place], [address], 01/23/2019 17:08:16 02/01/2002/01/2019 CBC w/ auto diff WBC 7.9 x10e3 /uL 3.4-10 .8 Not Available [facility] ([facility]) [address] [facility], [place], [address], 02/01/2019 10:10:13 02/01/2002/01/2019 CBC w/ auto diff RBC 4.40 x10e6 /uL 3.77-5 .28 Not Available [facility] ([facility]) [address] [facility], [place], [address], 02/01/2019 10:10:13 02/01/2002/01/2019 CBC w/ auto diff hemoglobin 11.9 g/dL 11.1-1 5.9 Not Available [facility] ([facility]) [address] [place], [address], 02/01/2019 10:10:13 02/01/2002/01/2019 CBC w/ auto diff hematocrit 37.3 % 34.0-4 6.6 Not Available [facility] ([facility]) [address] [place], [address], 02/01/2019 10:10:13 02/01/2002/01/2019 CBC w/ auto diff MCV 85 fL 79-97 Not Available [facility] ([facility]) [address] [facility], [place], [address], 02/01/2019 10:10:13 02/01/2002/01/2019 CBC w/ auto diff MCH 27.0 pg 26.6-3 3.0 Not Available [facility] ([facility]) [address] [facility], [place], [address], 02/01/2019 10:10:13 02/01/2002/01/2019 CBC w/ auto diff MCHC 31.9 g/dL 31.5-3 5.7 Not Available [facility] ([facility]) [address] [facility], [place], [address], 02/01/2019 10:10:13 02/01/2002/01/2019 CBC w/ auto diff RDW 14.4 % 12.3-1 5.4 Not Available [facility] ([facility]) [address] [facility], [place], [address], 02/01/2019 10:10:13 02/01/2002/01/2019 CBC w/ auto diff platelets 285 x10e3 /uL 150-45 0 Not Available [facility] ([facility]) [address] [facility], [place], [address], 02/01/2019 10:10:13 02/01/2002/01/2019 CBC w/ auto diff neutrophils 66 % not estab. Not Available [facility] ([facility]) [address] [facility], [place], [address], 02/01/2019 10:10:13 02/01/2002/01/2019 CBC w/ auto diff lymphs 27 % not estab. Not Available [facility] ([facility]) [address] [facility], [place], [address], 02/01/2019 10:10:13 02/01/2002/01/2019 CBC w/ auto diff monocytes 6 % not estab. Not Available [facility] ([facility]) [address] [place], [address], 02/01/2019 10:10:13 02/01/2002/01/2019 CBC w/ auto diff eos 1 % not estab. Not Available [facility] ([facility]) [address] [place], [address], 02/01/2019 10:10:13 02/01/2002/01/2019 CBC w/ auto diff basos 0 % not estab. Not Available [facility] ([facility]) [address] [place], [address], 02/01/2019 10:10:13 02/01/2002/01/2019 CBC w/ auto diff immature cells DERMATOLOGY SALES REPRESENTATIVE Not Available [facility] ([facility]) [address] [place], [address], 02/01/2019 10:10:13 02/01/2002/01/2019 CBC w/ auto diff neutrophils (absolute) 5.2 x10e3 /uL 1.4-7. 0 Not Available [facility] ([facility]) [address] [place], [address], 02/01/2019 10:10:13 02/01/2002/01/2019 CBC w/ auto diff lymphs (absolute) 2.1 x10e3 /uL 0.7-3. 1 Not Available [facility] ([facility]) [address] [place], [address], 02/01/2019 10:10:13 02/01/2002/01/2019 CBC w/ auto diff monocytes(ab solute) 0.4 x10e3 /uL 0.1-0. 9 Not Available [facility] ([facility]) [address] [place], [address], 02/01/2019 10:10:13 02/01/2002/01/2019 CBC w/ auto diff eos (absolute) 0.1 x10e3 /uL 0.0-0. 4 Not Available [facility] ([facility]) [address] [facility], [place], [address], 02/01/2019 10:10:13 02/01/2002/01/2019 CBC w/ auto diff baso (absolute) 0.0 x10e3 /uL 0.0-0. 2 Not Available [facility] ([facility]) [address] [facility], [place], [address], 02/01/2019 10:10:13 02/01/2002/01/2019 CBC w/ auto diff immature granulocytes 0 % not estab. Not Available [facility] ([facility]) [address] [facility], [place], [address], 02/01/2019 10:10:13 02/01/2002/01/2019 CBC w/ auto diff immature grans (abs) 0.0 x10e3 /uL 0.0-0. 1 Not Available [facility] ([facility]) [address] [facility], [place], [address], 02/01/2019 10:10:13 02/01/2002/01/2019 CBC w/ auto diff NRBC DERMATOLOGY SALES REPRESENTATIVE Not Available [facility] ([facility]) [address] [facility], [place], [address], 02/01/2019 10:10:13 02/01/2002/01/2019 CBC w/ auto diff hematology comments: DERMATOLOGY SALES REPRESENTATIVE Not Available [facility] ([facility]) [address] [facility], [place], [address], 02/01/2019 10:10:13 02/01/2002/01/2019 lipid panel , serum cholesterol, total 172 mg/dL 100-19 9 Not Available [facility] ([facility]) [address] [facility], [place], [address], 02/01/2019 10:10:14 02/01/2002/01/2019 lipid panel , serum triglyceride s 58 mg/dL 0-149 Not Available [facility] ([facility]) [address] [place], [address], 02/01/2019 10:10:14 02/01/2002/01/2019 lipid panel , serum HDL cholesterol 63 mg/dL >39 Not Available [facility] [facility] [address] [place], [address], 02/01/2019 10:10:14 02/01/2002/01/2019 lipid panel , serum VLDL cholesterol ja 12 mg/dL 5-40 Not Available [facility] ([facility]) [address] [place], [address], 02/01/2019 10:10:14 02/01/2002/01/2019 lipid panel , serum LDL cholesterol calc 97 mg/dL 0-99 Not Available [facility] ([facility]) [address] [place], [address], 02/01/2019 10:10:14 02/01/2002/01/2019 lipid panel , serum comment: DERMATOLOGY SALES REPRESENTATIVE Not Available [facility] ([facility]) [address] [place], [address], 02/01/2019 10:10:14 02/01/2002/01/2019 HbA1c (hemo globi n A1c), blood hemoglobin A1C 5.0 % 4.8-5. 6 Predi abete s: 5.7 - 6.4 Diabe deven: >6.4 Glyce britany contr ol for adult s with diabe deven: <7.0 Not Available [facility] ([facility]) [address] [place], [address], 02/01/2019 10:10:14 02/01/2002/01/2019 TSH, ultra -sens itive , serum TSH 0.768 uIU/m L 0.450- 4.500 Not Available [facility] ([facility]) [address] [place], [address], 02/01/2019 10:10:15 02/11/2002/14/2019 patho logy study . Commen t Neil pickensl submi tted: . PART A: endoc ervix - ENDOC ERVIC AL CURET TAGE PART B: cervi x - CERVI JA BIOPS Y AT 9:00. Modif iers: 9:00 Not Available [facility] ([facility]) [address] [place], [address], 02/14/2019 20:07:57 02/11/2002/14/2019 patho logy study . Commen t Diagn osis: Part A: ENDOC ERVIC AL CURET TAGE: FRAGM ENTS OF ENDOC ERVIC AL GLAND S, SQUAM OUS MUCOS A, MUCUS AND BLOOD . Part B: CERVI JA BIOPS Y AT 9:00: LOW-G RADE SQUAM OUS INTRA EPITH ELIAL LESIO N (BECKI 1). COMME NTS: FINDI KT CORRE LATE WITH PATIE NT HISTO RY OF ABNOR MAL PAP SMEAR . IDS 02/14 [id number] Local Not Available [facility] ([facility]) [address] [facility], [place], [address], 02/14/2019 20:07:57 02/11/2002/14/2019 patho logy study . Commen t Payam moore d: . Jordan Nick MD, Patho logis t Not Available [facility] ([facility]) [address] [facility], [place], [address], 02/14/2019 20:07:57 02/11/20 19 02/14/2019 patho logy study . Barbaar t Gross descr iptio n: . 2 Conta iners , forma jorge-f illed , label ed with patie nt ident ifica tion. Part A: ENDOC ERVIC AL CURET TAGE: RECEI JAKOB IS AN ENDOC ERVIC AL BRUSH . SCRAP INGS PRODU CE 1.2 X 0.5 X 0.1 CM IN AGGRE GATE OF MUCUS , HEMOR RHAGI C MATER IAL AND SOFT MATER IAL. THE SPECI MEN IS FILTE RED AND ENTIR LEAH SUBMI TTED IN CASSE TTE(S ) A1. Part B: CERVI JA BIOPS Y AT 9:00: 1 FRAGM ENT(S ) OF HOPKINS MUCOI D TISSU E MEASU RING 0.4 X 0.3 X 0.2 CM. SUBMI TTED RECEI JAKOB IN CASSE TTE(S ) B1. THE SPECI MEN IS SUBMI TTED BETWE EN TWO SPONG ES FOR PROCE SSING . CUR/C UR 02/13 0705 Local Not Available [facility] ([facility]) [address] [facility], [place], [address], 02/14/2019 20:07:57 02/11/20 19 02/14/2019 patho logy study . Commen t Patho logis t provi ded ICD-1 0: N87.0 Not Available [facility] ([facility]) [address] [facility], [place], [address], 02/14/2019 20:07:57 02/11/20 19 02/14/2019 patho logy study . Commsydni t CPT . 37852 1, 35755 2 Not Available [facility] ([facility]) [address] [facility], [place], [address], 02/14/2019 20:07:57 01/18/20 19 01/17/2019 XR, knee Examin ation: Bilate ral knee radiog raphs Access ion: [id number] Exam Date/T cathi: 019 12:43 PM Reason For Exam: [id number] 000: Idiopa thic osteoa rthrit is Pain in both knees. Swelli ng in both knees greate r on the right. Clicki ng and poppin g sounds in the right knee. Compar nik: None Techni que: 4 views of the left knee and 4 views of the right knee obtain ed Findin gs: Right superi or patell ar spur. Minima l spurri ng of the right medial tibial platea u tibial platea u and medial femora l condyl e. No signif icant joint space loss in either knee. No signif icant joint effusi on in either knee. Tiny superi or patell ar spur on the left. No radiop aque foreig n bodies . No acute fractu re or disloc ation in either knee. No destru ctive osseou s lesion s. ====== ===== IMPRES ANAYELI: ====== ==== 1. Minima l early osteoa rthrit ic change s bilate rally with no acute osseou s abnorm alitie s ====== ====== ====== ====== ====== === READ BY: MERLYN DAVIS Date: 2018 14:59 [facility] ([facility]) [address] [place], [address], 01/19/2019 17:11:48 02/20/20 22 02/19/2022 MRI, knee, w/o contr ast No observ ation record ed. [email or web address] [facility] [address] [place], [address], 02/26/2022 18:56:18 Result Notes None recorded. Procedures Surgical History Date Name Laterality Status Provider Name and Address Organization Details Recorded Time 02/10/2019 Colposcopy completed Ginger Arellano [place] - [facility] 02/10/2019 16:13:01 Imaging Results Imaging Date Name Status LastModified by Organiz ation Details LastModified Time 01/17/2019 XR, knee completed [email or web address] [facility] ([facility]) [address], [place], [address], 01/19/2019 17:11:48 02/19/2022 MRI, knee, w/o contrast completed [email or web address] [facility] On [facility] Orders [address], [place], [address], 02/26/2022 18:56:18 Procedure Notes None recorded. Medical Equipment None Reported. Allergies No known drug allergies Medications Name Sig Start Date Stop Date Status Note LastModified by Organization Details LastModified Time ibuprofen 800 mg tablet Take 1 tablet every 8 hours by oral route as needed for 7 days. 2018 active Not Available Not Available Not Avai lable Medrol (Cheo) 4 mg tablets in a dose pack Take 1 dose pk every day by oral route as directed for 6 days. 2018 active Not Available Not Available Not Avai lable metronidazole 500 mg tablet Take 1 tablet twice a day by oral route for 7 days. 2018 active Not Available Not Available Not Avai lable amoxicillin 875 mg tablet Take 1 tablet every 12 hours by oral route for 10 days. 2018 active Not Available Not Available Not Avai lable cefdinir 300 mg capsule Take 1 capsule every 12 hours by oral route for 10 days. 2018 active Not Available Not Available Not Avai lable naproxen 500 mg tablet Take 1 tablet twice a day by oral route as needed. 2018 active Not Available Not Available Not Avai lable nitrofurantoin monohydrate/ma crocrystals 100 mg capsule Take 1 capsule every 12 hours by oral route for 5 days. active Not Available Not Available No t Available Vitals Date Recorded Body height Provider Name an d Address Organization Details Last Updated DateTime 01/09/2019 162.56 cm Marilia Montiel [place] - [facility] 01/10/20 19 15:19:18 Date Recorded Body mass index (BMI) Body weight Provider Name and Address Organization Details Last Updated DateTime 01/09/2019 43.9 kg/m2 392455.24 g Marilia Montiel MA [facility] 01/09/2019 15:19:21 Date Recorded Body temperature Provider Name a nd Address Organization Details Last Updated DateTime 01/09/2019 98.4 [degF] Marilia Montiel MA [facility] 019 15:19:48 Date Recorded Heart rate Provider Name an d Address Organization Details Last Updated DateTime 01/09/2019 71 /min Marilia Montiel MA [facility] 01/10/20 19 15:19:53 Date Recorded Oxygen saturation Oxygen saturation in Arterial blood by Pulse oximetry Provider Name and Address Organization Details Last Updated DateTime 01/09/2019 99 % 99 % Marilia Montiel MA [facility] 01/09/2019 15:19:55 Date Recorded Body height Provider Name an d Address Organization Details Last Updated DateTime 01/19/2019 162.56 cm Marilia Montiel MA [facility] 01/20/20 19 14:41:44 Date Recorded Body mass index (BMI) Body weight Provider Name and Address Organization Details Last Updated DateTime 01/19/2019 43.7 kg/m2 877033.65 g Marilia Montiel MA [facility] 01/19/2019 14:47:53 Date Recorded Body temperature Provider Name a nd Address Organization Details Last Updated DateTime 01/19/2019 98.4 [degF] Marilia Montiel MA [facility] 019 14:48:59 Date Recorded Heart rate Provider Name an d Address Organization Details Last Updated DateTime 01/19/2019 71 /min Marilia Montiel MA [facility] 01/20/20 19 14:49:07 Date Recorded Oxygen saturation Oxygen saturation in Arterial blood by Pulse oximetry Provider Name and Address Organization Details Last Updated DateTime 01/19/2019 99 % 99 % Marilia Mnotiel MA [facility] 01/19/2019 14:49:09 Date Recorded Body height Provider Name an d Address Organization Details Last Updated DateTime 02/07/2019 162.56 cm Marianna Singh MA [facility] 02/08/20 19 12:41:11 Date Recorded Body mass index (BMI) Body weight Provider Name and Address Organization Details Last Updated DateTime 02/07/2019 44.6 kg/m2 511146.02 g Marianna Singh MA [facility] 02/07/2019 12:44:53 Date Recorded Body temperature Provider Name a nd Address Organization Details Last Updated DateTime 02/07/2019 99.7 [degF] Marianna Singh MA [facility] 019 12:46:39 Date Recorded Oxygen saturation Oxygen saturation in Arterial blood by Pulse oximetry Provider Name and Address Organization Details Last Updated DateTime 02/07/2019 98 % 98 % Marianna Singh MA [facility] 02/07/2019 12:46:41 Date Recorded Heart rate Provider Name an d Address Organization Details Last Updated DateTime 02/07/2019 68 /min Marianna Singh MA [facility] 02/08/20 19 12:46:43 Date Recorded Body height Provider Name an d Address Organization Details Last Updated DateTime 02/10/2019 162.56 cm Martita Winters MA [facility] 02/11/20 19 15:19:55 Date Recorded Body mass index (BMI) Body weight Provider Name and Address Organization Details Last Updated DateTime 02/10/2019 43.9 kg/m2 268940.65 g Martita WintersSARITA small [facility] 02/10/2019 15:21:17 Date Recorded Heart rate Provider Name an d Address Organization Details Last Updated DateTime 02/10/2019 78 /min Martita Winters MA [facility] 02/11/20 19 15:21:28 Date Recorded Oxygen saturation Oxygen saturation in Arterial blood by Pulse oximetry Provider Name and Address Organization Details Last Updated DateTime 02/10/2019 98 % 98 % Martita Winters MA [facility] 02/10/2019 15:21:46 Date Recorded Body temperature Provider Name a nd Address Organization Details Last Updated DateTime 02/10/2019 99.7 [degF] Martita Winters MA [facility] 019 15:22:21 Date Recorded Body height Provider Name an d Address Organization Details Last Updated DateTime 11/25/2016 160.02 cm Arielle Oconnell MA [facility] 11/25 14:38:24 Date Recorded Body mass index (BMI) Body weight Provider Name and Address Organization Details Last Updated DateTime 11/25/2016 41.8 kg/m2 780209.8 g Arielle Oconnell MA [facility] 11/25/2016 14:38:29 Date Recorded Body temperature Provider Name a nd Address Organization Details Last Updated DateTime 11/25/2016 98.6 [degF] Arielle Oconnell MA [facility] 11/25/2016 14:39:08 Date Recorded Heart rate Provider Name an d Address Organization Details Last Updated DateTime 11/25/2016 84 /min Arielle Oconnell MA [facility] 11/25 14:40:13 Date Recorded Systolic blood pressure Diastolic blood pressure Provider Name and Address Organization Details Last Updated DateTime 01/09/2019 132 mm[Hg] 92 mm[Hg] Marilia Montiel MA [facility] 01/09/2019 15:21:17 Date Recorded Systolic blood pressure Diastolic blood pressure Provider Name and Address Organization Details Last Updated DateTime 01/19/2019 148 mm[Hg] 76 mm[Hg] Marilia Montiel MA [facility] 01/19/2019 14:48:02 Date Recorded Systolic blood pressure Diastolic blood pressure Provider Name and Address Organization Details Last Updated DateTime 02/07/2019 112 mm[Hg] 70 mm[Hg] Marianna Singh MA [facility] 02/07/2019 12:46:46 Date Recorded Systolic blood pressure Diastolic blood pressure Provider Name and Address Organization Details Last Updated DateTime 02/10/2019 140 mm[Hg] 90 mm[Hg] Martita Winters MA [facility] 02/10/2019 15:21:25 Date Recorded Systolic blood pressure Diastolic blood pressure Provider Name and Address Organization Details Last Updated DateTime 11/25/2016 116 mm[Hg] 74 mm[Hg] Arielle Oconnell MA [facility] 11/25/2016 14:41:45 Social History Question Answer Notes LastModified by Organizat ion Details LastModified Time Tobacco Smoking Status Current Every Day [facility] 11/25/2016 14:34:20 Do You Or Have You Ever Used E-cigarettes Or Vape? Never Used Electronic Cigarettes Information not available 02/07/2019 Do You Or Have You Ever Used Smokeless Tobacco? Never Used Smokeless Tobacco Information not available 02/07/2019 How Much Tobacco Do You Smoke? 0.5 PPD Information not available 11/25/2016 How Many Years Have You Smoked Tobacco? 17 Information not available 11/25/2016 Sex: Unknown Functional Status None recorded. Mental Status None recorded. Family History Nothing Reported. Medical History No medical history recorded. Gynecological HistoryNo gynecological history recorded. Obstetrics History GPAL:G 0 P 0 0 0 0 Past Encounters Encounter ID Performer Location Encounter Start Date Encounter Closed Date Diagnosis/Indication Diagnosis SNOMED-CT Code Diagnosis ICD10 Code Diagnosis Note [id number] ALEXANDRO Reddy ([facility] [address]) [address] [place] [address] 11/25/2016 13:59:08 11/26/2016 10:36:50 Adult health examination 962102755 Z00.00 We discussed the importance of healthy diet and regular exercise in managing weight. Will check routine labs including A1C today. Irregular intermenstrual bleeding 52393551 N92.1 Advised pt to go to ER if she ever develops lightheade dness or excessive bleeding. 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 Gynecologi c examination 50537525 Z01.419 Normal gynecologi c exam and specimen obtained for pap testing. Will contact pt when results are available. [id number] ALEXANDRO Reddy ([facility]) [address] [place] [address] 01/09/2019 15:04:29 02/01/2019 09:14:54 Osteoarthritis of knee 509750177 M17.0 Pt advised that she will need to complete XR before referral can be processed. In meantime, may take NSAIDs as needed for pain. Dysuria 54217594 R30.0 Will treat with Macrobid. May take phenazopyr idine as needed for relief. Advised pt that phenazopyr idine may discolor urine. Encouraged to limit caffeine and increase water consumptio n. RTC in 1 week if no improvemen t. Morbid obesity 732595845 E66.01 Discussed importance of a low carb, low fat diet and regular exercise of 30-60 minutes most days of the week. We will also check A1C, lipids, CBC and TSH today. [id number] Carlo Uribe PA-C [facility] ([facility]) [address] [place] [address] 01/19/2019 14:37:11 01/23/2019 08:39:49 Gynecologic examination 18608944 Z01.419 Abnormal discharge noted on exam and specimen obtained for Nuswab. Otherwise normal exam. Will contact pt with results when available. [id number] [facility] [address] [place] [address] 02/07/2019 12:19:51 02/09/2019 13:53:54 Acute right otitis media 860855241 H66.91 [id number] Rey Santoyo MD [place] [address] [address] [facility] [address] [place] [address] 02/10/2019 14:40:37 02/13/2019 13:10:44 Abnormal cervical Papanicolaou smear 656247804 R87.619 patient tolerated procedure well-retur n precaution s given-cerv ical biopsy @0900 o'clock ordered with ECC Contraception care 22616 5005 Z30.40 Health Concerns Section Related Observation LastModified by Organization Detai ls LastModified Time None Recorded Concern Status LastModified by Organization Details LastModified Time None Recorded Advance Directives Directive None Recorded Payers Encounter Date Sequence Insurance Name Policy Number Policy Fairchild Covered Member ID Fairchild Member ID Guarantor Name 11/25/2016 1 [facility] - DOS PRIOR TO 2020 (MEDICAID REPLACEMENT - HMO) Gabriela Alcantara [id number] Gabriela Alcantara 01/09/2019 2 [facility] (MEDICAID HMO) [facility] Gabriela Alcantara [id number] Gabriela Alcantara 01/19/2019 2 [facility] (MEDICAID HMO) [place] [id number] Gabriela Alcantara 02/07/2019 1 [facility] (MEDICAID HMO) Gabriela Alcantara [id number] Gabriela Alcantara 02/10/2019 3 [place] [employer] Gabriela Alcantara [id number] Gabriela Alcantara Notes Date Note Type Note Provider Name and Address Organization Details Recorded Time 11/25/2016 text/html Gabriela is here today to establish care and c/o irregular menstrual bleeding. She states that for the past 2-3 months she has been having a period every other week. The periods are not excessively heavy and last 4-6 days on average. She denies fever, lightheadedness, SOB, wheezing, CP, DIAZ, hemoptysis or rash. She is sexually active with her and does not use any control. Carlo Uribe PA-C Attn: [address] [place], [address], [facility] 11/26/2016 16:47:45 01/09/2019 text/html Ms. Alcantara is here today requesting a new referral to ortho for her BL OA of the knees. She has not had a XR in several years and will need one to process the referral. She states her knees constantly hurt and she understands that her weight is contributing to this problem. She denies injury/trauma and rates the pain at 6/10 on most days. She denies injury/trauma. Regarding her weight, she states she has long struggled with obesity. She tries to eat a healthy diet and exercise but cannot seem to lose any weight. At her first visit, we ordered several labs but she did not complete them. She is also c/o dysuria, urinary frequency and a foul odor to the urine x 1 week. She has not been taking any medication for this. She denies fever, SOB, wheezing, CP, abdominal pain. Carlo Uribe PA-C Attn: [address] [place], [address], [facility] 01/31/2019 14:33:13 01/19/2019 text/html Gabriela is here today for cervical cancer screening. Carlo Uribe PA-C Attn: [address] [place], [address], [facility] 01/23/2019 14:30:51 02/07/2019 text/html Pt presents to clinic with c/o nausea, fever, chills, congestion, myalgia, headache and R ear pain x 3 days. She denies trialing otc medications. Pt denies vomiting, diarrhea, rash, constipation and dysuria. MIKE Martin- Attn: [address] [facility], [place], [address], [facility] 02/07/2019 13:23:09 02/10/2019 text/html 38 yoF with a no signif PMHx presenting for a colposcopy. Patient had a recent papsmear with cotesting that was LSIL and HPV+. Patient is denying any vaginal bleeding, vaginal odor, dysuria, hematuria or abnormal menstrual cycle. Rey Santoyo MD Attn: [address] [facility], [place], [address], [facility] 03/07/2019 11:37:20 OBGyn Episode No OBEpisode recorded.
--- OUTSIDE RECORDS SUMMARY | 2024-06-23 04:48 | XMS_ITS | Clinical Summary ---
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 Gender Identity Not on file Sexual Orientation Not on file Plan of Treatment Health Maintenance Due Date Last Done Comments Hepatitis C Virus (HCV) Screening 1979 TdaP Immunization 1979 Hepatitis B Immunization (2 of 3 - 3-dose series) 06/27/1997 05/30/1997 Pap Smear 2000 Cervical Cancer Screening (CCS) 2009 HPV/Cotest 2009 Discussion re Starting/Frequency of Mammograms 2019 Influenza Immunization (#1) 2024 SARS-COV-2 Immunization ( season) 2024 03/18/2021, 02/25/2021 Respiratory Syncytial Virus (RSV) Immunization (Adult) (1 - 1-dose 75+ series) 2054 DTaP/Tdap/Td Immunization Discontinued 1989, 01/21/1985, 05/08/1981, Additional history exists Meningococcal Immunization (ACWY) Aged Out No longer eligible based on patient's age to complete this topic Pneumococcal Immunization Combined Aged Out No longer eligible based on patient's age to complete this topic Rotavirus Immunization Aged Out No lo nger eligible based on patient's age to complete this topic
== END 2024-06-22 14:35 | disposition home or self-care (01) ==
PROVIDERS: Registered Nurse; Emergency Provider Emergency Medicine; PCP Emergency Medicine
DX: K42.9 Umbilical hernia without obstruction or gangrene (principal); R10.9 Unspecified abdominal pain; N39.0 Urinary tract infection, site not specified; F17.210 Nicotine dependence, cigarettes, uncomplicated
CPT/HCPCS: 36415; 74177; 80053; 81001; 81025; 83690; 84702; 85025; 87086; 99284; Q9967